=== PATIENT | male | born 1940 | race Caucasian/White ===

== ENCOUNTER 2019-10-26 01:20 | Emergency (ER) | payer OTHER, SELFPAY ==
--- NOTE | ~2019-10-26 | XR_ITS ---
EXAMINATION: XR knee LT min 4V DATE: 10/26/2019 02:14 INDICATION: Left knee pain. Fall. TECHNIQUE: 4 views of left knee were obtained. COMPARISON: None. FINDINGS: Bone alignment is normal. No fracture. There is moderate osteoarthritis of medial compartme nt and mild osteoarthritis of lateral and patellofemoral compartments. There is a moderate-sized knee joint effusion. IMPRESSION: 1. Moderate left knee osteoarthritis. 2. Moderate-sized left knee joint effusion. Reviewed, dictated and finalized at location A. 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
--- NOTE | ~2019-10-26 | XR_ITS ---
EXAMINATION: XR knee RT min 4V DATE: 10/26/2019 02:14 INDICATION: Right knee pain. Fall. TECHNIQUE: 4 views of right knee were obtained. COMPARISON: None. FINDINGS: Bone alignment is normal. No fracture. There is moderate osteoarthritis of medial and felix lofemoral compartments and mild osteoarthritis of lateral compartment. There is a moderate-sized knee joint effusion. There are surgical clips posteromedial to the knee. IMPRESSION: 1. Moderate right knee osteoarthritis. 2. Moderate-sized right knee joint effusion. Reviewed, dictated and finalized at location A. [facility]
[2019-10-26 01:21] VITALS: BP 157/41; PULSE 66; RESP 16; TEMP 36.9; O2SAT 95
--- NOTE | 2019-10-26 01:27 | ED.FALL ---
HPI - Fall General Chief Complaint: Fall Stated Complaint: fall Time Seen by Provider: 10/26/19 01:21 Source: patient and RN notes reviewed Mode of arrival: EMS Limitations: no limitations History of Present Illness HPI Narrative: A 78 y/o male presents to the ED via EMS after having a ground level fall yesterday morning. He states that he was walking when he tripped over a step, causing him to lose his balance, and fall onto his knees on a concrete floor. He reports DELLA knee pain that is aggravated when he walks. He notes that he has taken Excedrin but denies it alleviating his pain. He also denies any HI, LOC, RITTER, neck pain, back pain, ABD pain, or CP. MD complaint: fall Onset (ago): day(s) (yesterday morning) Fall from: standing Fall witnessed: no Place fall occurred: home Loss of consciousness: none Symptoms prior to fall: none Context: tripped/slipped Location of injury - extremities: Bilateral: knee Associated symptoms (after fall): other (DELLA knee pain) Related Data Home Medications Medication Instructions Recorded Confirmed albuterol sulfate 90 mcg/actuation 1 puff INHALATION Q4H PRN 09/11/19 09/26/19 aerosol inhaler alprostadil 125 mcg intra-urethral 125 mcg INTRA-URET Q30-60M PRN 09/11/19 09/26/19 suppository aspirin 81 mg tablet,delayed 81 mg PO DAILY 09/11/19 09/26/19 release carvedilol 12.5 mg tablet 12.5 mg PO Q12H 09/11/19 09/26/19 enalapril maleate 20 mg tablet 20 mg PO BID 09/11/19 09/26/19 gabapentin 300 mg capsule 300 mg PO TID 09/11/19 09/26/19 hydroxyzine HCl 25 mg tablet 25 mg PO .at bedtime PRN tablet 09/11/19 09/26/19 insulin glargine 100 unit/mL 20 unit SUB-Q BID ml 09/11/19 09/26/19 subcutaneous solution nifedipine 90 mg tablet,extended 90 mg PO DAILY 09/11/19 09/26/19 release pramipexole 0.125 mg tablet 0.125 mg PO DAILY tablet 09/11/19 09/26/19 sevelamer carbonate 800 mg tablet 2,400 mg PO TID tablet 09/11/19 09/26/19 silver sulfadiazine 1 % topical 1 applic TOPICAL BID 09/11/19 09/26/19 cream simvastatin 40 mg tablet 40 mg PO DAILY 09/11/19 09/26/19 terazosin 10 mg capsule 10 mg PO DAILY 09/11/19 09/26/19 furosemide 80 mg tablet 80 mg PO BID 10/05/19 Allergies Allergy/AdvReac Type Severity Reaction Status Date / Time cortisone Allergy Unknown Unknown Verified 10/26/19 01:27 zolpidem Allergy Unknown Unknown Verified 10/26/19 01:27 cortisone Allergy Unknown Unknown Uncoded 10/26/19 01:27 zolpidem Allergy Unknown Unknown Uncoded 10/26/19 01:27 Review of Systems Review of Systems: All systems reviewed & are unremarkable except as noted in HPI and below Cardiovascular: Cardiovascular: Denies chest pain Gastrointestinal: Gastrointestinal: Denies abdominal pain Musculoskeletal: Musculoskeletal: Denies back pain, Reports arthralgias (DELLA knee) and Denies neck pain Neurologic: Denies headache(s) and Denies other (HI or LOC) PMFSH Past Medical History Medical History Arthritis CAD (coronary artery disease) Cataract Constipation Depression Dialysis patient Fracture GERD (gastroesophageal reflux disease) Gout HLD (hyperlipidemia) HTN (hypertension) IDDM (insulin dependent diabetes mellitus) Myocardial infarct Peripheral neuropathy Pneumonia Renal disease Shingles Skin cancer Sleep apnea TIA (transient ischemic attack) Trigger thumb of left hand Weight loss Surgical History Surgical History Cataract extraction status, unspecified eye H/O cardiac catheterization H/O lateral meniscus repair of left knee History of tonsillectomy Hx of CABG S/P right rotator cuff repair Status post surgical removal of malignant neoplasm of skin Family History Family History Sibling Patient's brother is in good health Mother Family history of malignant neoplasm Patient's mother is Social History Social History (Reviewed
[2019-10-26] MEDS: ACETAMINOPHEN 500 MG TABLET 1000 MG PO (02:00)
[2019-10-26 02:16] VITALS: BP 146/78; PULSE 62; RESP 18; O2SAT 98
[2019-10-26 02:30] VITALS: TEMP 36.9
--- NOTE | 2019-10-26 03:04 | PC.NURSE ---
Patient was able to ambulate without difficulty during ambulation assessment.
[2019-10-26 03:21] VITALS: BP 135/56; PULSE 65; RESP 18; TEMP 36.3; O2SAT 100
== END 2019-10-26 03:24 | disposition home or self-care (01) ==
PROVIDERS: Emergency Provider Emergency Medicine; PCP Internal Medicine
DX: S80.02XA Contusion of left knee, initial encounter (principal); S80.01XA Contusion of right knee, initial encounter; S80.212A Abrasion, left knee, initial encounter; N18.6 End stage renal disease; I12.0 Hypertensive chronic kidney disease with stage 5 chronic kidney disease or end stage renal disease; E11.22 Type 2 diabetes mellitus with diabetic chronic kidney disease; Z99.2 Dependence on renal dialysis; I25.10 Atherosclerotic heart disease of native coronary artery without angina pectoris; K21.9 Gastro-esophageal reflux disease without esophagitis; M10.9 Gout, unspecified; I25.2 Old myocardial infarction; E78.5 Hyperlipidemia, unspecified; E11.42 Type 2 diabetes mellitus with diabetic polyneuropathy; M19.90 Unspecified osteoarthritis, unspecified site; Z95.1 Presence of aortocoronary bypass graft; Z86.73 Personal history of transient ischemic attack (TIA), and cerebral infarction without residual deficits; Z79.82 Long term (current) use of aspirin; Z79.4 Long term (current) use of insulin; Z98.49 Cataract extraction status, unspecified eye; Z85.828 Personal history of other malignant neoplasm of skin; W18.09XA Striking against other object with subsequent fall, initial encounter
CPT/HCPCS: 73564; 99284; A9270

== ENCOUNTER 2019-12-02 08:57 | Emergency (ER) | payer OTHER, SELFPAY ==
--- NOTE | ~2019-12-02 | CT_ITS ---
EXAMINATION: CT brain wo con DATE: 12/02/2019 09:45 INDICATION: Recent head injury. Weakness. TECHNIQUE: Computed tomography (CT) of the head was performed without intravenous contrast. The dose- length product was 605.33 mGy-cm. The mA was adjusted according to patient size. Iterative reconstruc tion technique was employed. COMPARISON: CT dated 07/12/2015 FINDINGS: Mild atrophy. There are scattered mild periventricular and subcortical white matter changes , most likely related to small vessel ischemic disease (microangiopathy). Prominent perivascular spac e right basal ganglia. No acute intracranial hemorrhage, infarction, mass or mass effect. There is in tracranial atherosclerosis. Basilar cisterns are patent. Mild mucosal thickening of the ethmoid sinus es. Mastoids are pneumatized. No depressed skull fractures. IMPRESSION: 1. No acute intracranial abnormality. 2: Chronic age-related findings. Reviewed, dictated and finalized at location A.
--- NOTE | ~2019-12-02 | XR_ITS ---
XR chest 2V 12/02/2019 09:33 Indication: Weakness and dyspnea Procedure: AP upright view of the chest Comparison: Comparison to multiple prior studies sequentially, with oldest reviewed study dated 11/24. Findings: Status post median sternotomy for CABG. Cardiomegaly. Bibasilar airspace disease is present . Small pleural effusions. No edema or pneumothorax. The lungs are hyperinflated which is consistent with, but not diagnostic of chronic obstructive pulmonary disease. Impression: 1: Bibasilar airspace disease which may represent pneumonia and/or atelectasis. 2: Cardiomegaly. 3: Small pleural effusions. Reviewed, dictated and finalized at location A. Impression: 1: Bibasilar airspace disease which may represent pneumonia and/or atelectasis. 2: Cardiomegaly. 3: Small pleural effusions.
[2019-12-02 09:00] VITALS: BP 114/63; PULSE 61; RESP 12; TEMP 36.4; O2SAT 99
--- NOTE | 2019-12-02 09:03 | ED.WEAKNESS ---
HPI - Weakness General Chief complaint: Weakness Stated complaint: weakness Time Seen by Provider: 12/02/19 09:02 Source: patient Mode of arrival: EMS Limitations: no limitations History of Present Illness HPI Narrative: A 79 y/o male presents to the ED, via EMS, with c/o generalized weakness. Pt states that 1.5 weeks ago he fell and landed on his knees and hit his head. He notes that he was seen at [facility], but did not tell staff that he hit his head. At the ED visit he had bilateral knee X-Rays that did not show any abnormalities. The patient cannot remember if he was admitted to [facility] or not. He adds that since the fall he has had trouble with his balance and a poor appetite. Pt uses a walker to ambulate. Today at 0600 he had extreme trouble getting out of bed and used his walker to get into his recliner. The patient then could not get out of his chair and called EMS. He states that the generalized weakness and trouble ambulating worsened today. Pt reports occasional SOB, rhinorrhea, sinus drainage, and occasional diarrhea, but denies CP, cough, fever, chills, sweats, sore throat, N/V, congestion, and constipation. He has a PMHx of HTN, [place], and renal disease. Pt receives dialysis every MWF and last had dialysis on 11/30/19. He notes that he does not urinate every day. Dr. Sam is his PCP and Dr. Mills is his care management coordinator. Complaint: generalized weakness Onset (ago): week(s) (1.5) Duration: constant and progressively worsening (today) Location: generalized Associated symptoms: loss of appetite, shortness of breath (occasional) and other (trouble balancing, rhinorrhea, sinus drainage, occasional diarrhea) Related Data Home Medications Medication Instructions Recorded Confirmed albuterol sulfate 90 mcg/actuation 1 puff INHALATION Q4H PRN 09/11/19 09/26/19 aerosol inhaler alprostadil 125 mcg intra-urethral 125 mcg INTRA-URET Q30-60M PRN 09/11/19 09/26/19 suppository aspirin 81 mg tablet,delayed 81 mg PO DAILY 09/11/19 09/26/19 release carvedilol 12.5 mg tablet 12.5 mg PO Q12H 09/11/19 09/26/19 enalapril maleate 20 mg tablet 20 mg PO BID 09/11/19 09/26/19 gabapentin 300 mg capsule 300 mg PO TID 09/11/19 09/26/19 hydroxyzine HCl 25 mg tablet 25 mg PO .at bedtime tablet 09/11/19 09/26/19 nifedipine 90 mg tablet,extended 90 mg PO DAILY 09/11/19 09/26/19 release pramipexole 0.125 mg tablet 0.125 mg PO DAILY tablet 09/11/19 09/26/19 sevelamer carbonate 800 mg tablet 2,400 mg PO TID tablet 09/11/19 09/26/19 silver sulfadiazine 1 % topical 1 applic TOPICAL BID 09/11/19 09/26/19 cream terazosin 10 mg capsule 10 mg PO DAILY 09/11/19 09/26/19 furosemide 80 mg tablet 80 mg PO BID 10/05/19 insulin glargine 100 unit/mL 10 unit SUB-Q .AT HS ml 11/08/19 11/08/19 subcutaneous solution amitriptyline 12/02/19 apixaban [Eliquis] mg 12/02/19 atorvastatin 12/02/19 Allergies Allergy/AdvReac Type Severity Reaction Status Date / Time cortisone Allergy Unknown Unknown Verified 10/26/19 01:27 zolpidem Allergy Unknown Unknown Verified 10/26/19 01:27 cortisone Allergy Unknown Unknown Uncoded 10/26/19 01:27 zolpidem Allergy Unknown Unknown Uncoded 10/26/19 01:27 Review of Systems Review of Systems: All systems reviewed & are unremarkable except as noted in HPI and below Constitutional: Constitutional: Denies chills, Denies fever(s), Reports poor appetite, Reports weakness (generalized) and Denies other (sweats) ENT: Denies nasal congestion, Reports nasal discharge, Denies sore throat and Reports other (sinus drainage) Cardiovascular: Cardiovascular: Denies chest pain Respiratory: Respiratory: Denies cough and Reports dyspnea (occasional) Gastrointestinal: Gastrointestinal: Denies constipation, Reports diarrhea (occasional), Denies nausea and Denies vomiting Neurologic: Reports other (trouble balancing) PMFSH Past Medical History Medical History Arthritis CAD (coronary
--- NOTE | 2019-12-02 09:04 | ECG_ITS ---
Measurements Intervals [place] Rate: 59 P: 24 [place]: 218 QRS: -26 QRSD: 99 T: 197 QT: 450 QTc: 449 Interpretive Statements SINUS BRADYCARDIA BORDERLINE AV CONDUCTION DELAY DELAYED PRECORDIAL R/S TRANSITION LEFT VENTRICULAR HYPERTROPHY AND ST-T CHANGE ST-T WAVE ABNORMALITY IN LATERAL LEADS- CONSIDER ISCHEMIA BASELINE ARTIFACT- I, II, AVR, AVL, AVF, V1-V6 ABNORMAL ECG Electronically Signed On 12-02-2019 9:18:12 CDT by Guille Louis D.O.
[2019-12-02 09:08] LABS: Glucose Point of Care 232 (65-105)
[2019-12-02 09:16] VITALS: PULSE 61
[2019-12-02 09:48] VITALS: BP 107/49; PULSE 55
[2019-12-02 09:52] VITALS: BP 107/55; BP 117/48; PULSE 54; PULSE 58
[2019-12-02 10:02] LABS: Basophils Percent Auto 0.5 % (0.2-1.2); Eosinophils Absolute Auto 0.6 K/mm3 (0-0.3); Hematocrit 24.7 % (42.0-52.0); Hemoglobin 7.7 g/dL (14.0-18.0); Immature Granulocyte Absolute 0.03 K/mm3 (0.00-0.031); Immature Granulocyte Percent A 0.4 % (0-0.5); Lymphocytes Absolute Auto 1.13 K/mm3 (0.9-3.2); Lymphocytes Percent Auto 14.4 % (18.3-44.2); Mean Corpuscular HGB Conc 31.2 g/dl (32-36); Mean Corpuscular Volume 96.1 fl (80-100); Mean Platelet Volume 9.9 fl (7.4-10.4); Monocytes Absolute Auto 0.8 K/mm3 (0.1-0.6); Monocytes Percent Auto 10.1 % (2.6-8.5); Neutrophils Absolute Auto 5.3 K/mm3 (1.3-6.7); Neutrophils Percent Auto 67.6 % (45.5-73.1); Platelet Count Result 249 k/mm3 (150-375); Red Blood Count 2.57 M/mm3 (4.6-6.20); Red Cell Distribution Width 15.1 % (11.5-14.5); White Blood Count 7.9 K/mm3 (4.5-10.0)
[2019-12-02 10:12] LABS: Alanine Aminotransferase 8 U/L (4-50); Albumin Level 3.2 g/dL (3.5-5.1); Alkaline Phosphatase 93 U/L (38-126); Aspartate Amino Transferase 12 U/L (17-59); Bilirubin,Total < 0.1 mg/dL (0.2-1.3); Blood Urea Nitrogen 37 mg/dL (9-20); Calcium 8.2 mg/dL (8.4-10.2); Carbon Dioxide 29 mmol/L (22-30); Chloride 97 mmol/L (98-107); Estimated Glomerular Filt Rate 9; Glucose 255 mg/dL (75-110); Magnesium 2.1 mg/dL (1.6-2.3); Phosphorus 5.1 mg/dL (2.5-4.5); Potassium 3.8 mmol/L (3.4-5.0); Sodium 134 mmol/L (137-145)
[2019-12-02 12:35] VITALS: BP 116/64; PULSE 60; RESP 12; O2SAT 99
--- NOTE | 2019-12-02 12:40 | PCCCNOTE ---
Spoke with pt c/o needs. Pt feels that he is weak and having trouble getting around in the house and is unsteady or falls. Discussed the options of residential vs SNF vs home health. Pt does not want jail or SNF at this time but is open to home health. Lorenza spoke with Torri at [facility] and refferal faxed to them. Pt informed of this and told that home health should contact him in a day or so once insurance approval obtained. Phone # given to pt in case he is not contacted in 1 - 2 days.
== END 2019-12-02 12:40 | disposition home or self-care (01) ==
LOC: ANHED 09:23
PROVIDERS: Emergency Provider Emergency Medicine; PCP Internal Medicine
DX: R53.1 Weakness (principal); N18.6 End stage renal disease; E11.22 Type 2 diabetes mellitus with diabetic chronic kidney disease; I12.0 Hypertensive chronic kidney disease with stage 5 chronic kidney disease or end stage renal disease; Z99.2 Dependence on renal dialysis; Z87.891 Personal history of nicotine dependence; Z79.4 Long term (current) use of insulin; I25.10 Atherosclerotic heart disease of native coronary artery without angina pectoris; K21.9 Gastro-esophageal reflux disease without esophagitis; E78.5 Hyperlipidemia, unspecified; E11.42 Type 2 diabetes mellitus with diabetic polyneuropathy; I25.2 Old myocardial infarction; Z85.828 Personal history of other malignant neoplasm of skin; G47.30 Sleep apnea, unspecified; Z79.01 Long term (current) use of anticoagulants; Z79.82 Long term (current) use of aspirin; Z98.49 Cataract extraction status, unspecified eye; Z95.1 Presence of aortocoronary bypass graft; F32.9 Major depressive disorder, single episode, unspecified; R00.1 Bradycardia, unspecified; I51.7 Cardiomegaly; R94.31 Abnormal electrocardiogram [ECG] [EKG]; R91.8 Other nonspecific abnormal finding of lung field
CPT/HCPCS: 36415; 70450; 71046; 80053; 82948; 83735; 84100; 84443; 85025; 93005; 99284

== ENCOUNTER 2019-12-12 04:51 | Emergency (ER) | payer OTHER, SELFPAY ==
--- NOTE | ~2019-12-12 | CT_ITS ---
EXAMINATION: CT abdomen pelvis wo con DATE: 12/12/2019 05:23 INDICATION: Right flank pain. Low back pain. Fall 3 days ago. TECHNIQUE: Computed tomography (CT) of the abdomen and pelvis was performed without intravenous contr ast. Automated exposure control and iterative reconstruction technique were employed. The dose-length product was 618.69 mGy-cm. COMPARISON: CT abdomen and pelvis 10/09/2016, 10/16/15 FINDINGS: The visualized portions of the lung bases demonstrate smooth septal thickening, consistent with mild pulmonary edema. There are small pleural effusions. There is mild atelectasis bilaterally. Cardiomegaly is noted. There are coronary artery calcifications. No pericardial effusion. The liver i s normal. There are gallstones in the gallbladder, which is normal in size. The spleen is normal. The re are calcifications within pancreas, consistent with chronic pancreatitis. The adrenal glands and r ight kidney are normal. There is an 8 mm cyst in left kidney. The prostate is mildly enlarged. There is diverticulosis of the colon without evidence of diverticulitis. The appendix is normal. There are no dilated loops of bowel. There is a 2.7 x 1.9 cm mass with small calcifications in the body of the pancreas. Again seen is a mildly enlarged gastrohepatic lymph node, likely reactive. There is no free intraperitoneal fluid. There is a nondisplaced transverse fracture of S4 of the sacrum. There is mod erate lumbar spondylosis. There is a nondisplaced fracture of right 11th rib. IMPRESSION: 1. Acute fractures of the sacrum and right 11th rib. 2. Mild pulmonary edema with small pleural effusions. 3. Cardiomegaly. 4. 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 Reviewed, dictated and finalized at location A. IMPRESSION: 1. Acute fractures of the sacrum and right 11th rib. 2. Mild pulmonary edema with small pleural effusions. 3. Cardiomegaly. 4. 2.7 x 1.9 cm mass with small calcifications in the body of the pancreas susp icious for neuroendocrine carcinoma versus chronic pancreatitis, stable from 10/16/15.
[2019-12-12 04:55] VITALS: BP 126/71; PULSE 65; RESP 20; TEMP 36.2; O2SAT 100
[2019-12-12] MEDS: ACETAMINOPHEN 500 MG TABLET 1000 MG PO (05:05)
--- NOTE | 2019-12-12 05:06 | ED.BACK ---
HPI - Back Pain/Injury General Chief Complaint: Back Pain/Injury Stated Complaint: back pain, fall Time Seen by Provider: 12/12/19 04:54 Source: RN notes reviewed History of Present Illness HPI Narrative: Patient presents emergency department from home for fall. Patient states he fell 3 days ago. He states he missed the bottom stair and fell back onto his back. Patient states since that time is had pain in his right lower back and into his right side. Patient states he is able to get up and ambulate. He denies any other trauma or injury from the fall. Denies striking his head or loss of consciousness. He denies any numbness or tingling in the extremities, bowel or bladder incontinence, fever, abdominal pain nausea vomiting or any other symptoms. States he is taking no pain medication today Related Data Home Medications Medication Instructions Recorded Confirmed albuterol sulfate 90 mcg/actuation 1 puff INHALATION Q4H PRN 09/11/19 09/26/19 aerosol inhaler alprostadil 125 mcg intra-urethral 125 mcg INTRA-URET Q30-60M PRN 09/11/19 09/26/19 suppository aspirin 81 mg tablet,delayed 81 mg PO DAILY 09/11/19 09/26/19 release carvedilol 12.5 mg tablet 12.5 mg PO Q12H 09/11/19 09/26/19 enalapril maleate 20 mg tablet 20 mg PO BID 09/11/19 09/26/19 gabapentin 300 mg capsule 300 mg PO TID 09/11/19 09/26/19 hydroxyzine HCl 25 mg tablet 25 mg PO .at bedtime tablet 09/11/19 09/26/19 nifedipine 90 mg tablet,extended 90 mg PO DAILY 09/11/19 09/26/19 release pramipexole 0.125 mg tablet 0.125 mg PO DAILY tablet 09/11/19 09/26/19 sevelamer carbonate 800 mg tablet 2,400 mg PO TID tablet 09/11/19 09/26/19 silver sulfadiazine 1 % topical 1 applic TOPICAL BID 09/11/19 09/26/19 cream terazosin 10 mg capsule 10 mg PO DAILY 09/11/19 09/26/19 furosemide 80 mg tablet 80 mg PO BID 10/05/19 insulin glargine 100 unit/mL 10 unit SUB-Q .AT HS ml 11/08/19 11/08/19 subcutaneous solution amitriptyline 12/02/19 apixaban [Eliquis] mg 12/02/19 atorvastatin 12/02/19 Allergies Allergy/AdvReac Type Severity Reaction Status Date / Time cortisone Allergy Unknown Unknown Verified 12/12/19 05:01 zolpidem Allergy Unknown Unknown Verified 12/12/19 05:01 cortisone Allergy Unknown Unknown Uncoded 10/26/19 01:27 zolpidem Allergy Unknown Unknown Uncoded 10/26/19 01:27 Review of Systems Review of Systems: Narrative: Gen.: Denies fevers or chills Eyes: Denies eye pain or visual change ENT: Denies facial injury Respiratory: Denies shortness of breath or cough CV: Denies chest pain GI: Denies abdominal pain nausea, emesis or diarrhea reports history of chronic renal failure dialysis Musculoskeletal: See HPI Neuro: Denies numbness, tingling, weakness or focal weakness Skin: Denies rash Except as documented, all other systems reviewed and negative PMFSH Past Medical History Medical History Arthritis CAD (coronary artery disease) Cataract Constipation Depression Dialysis patient Fracture GERD (gastroesophageal reflux disease) Gout HLD (hyperlipidemia) HTN (hypertension) IDDM (insulin dependent diabetes mellitus) Myocardial infarct Peripheral neuropathy Pneumonia Renal disease Shingles Skin cancer Sleep apnea TIA (transient ischemic attack) Trigger thumb of left hand Weight loss Social History Social History Smoking status: Former smoker Alcohol intake: never Gender identity (if verbalized by the patient): Male Exam Narrative: Exam Narrative: APPEARANCE: No acute distress, nontoxic, resting in bed EYES: EOMI HEENT: Normocephalic, atraumatic, OMM RESPIRATORY: No respiratory distress Clear to auscultation bilaterally with no rhonchi wheezing or rales. CARDIOVASCULAR: Regular rate and rhythm without murmurs rubs or gallops. ABDOMINAL: Soft, nontender, nondistended, no rebound or guarding MUSCULOSKELETAl: Moves
--- NOTE | 2019-12-12 05:55 | PC.NURSE ---
This nurse contacted Lui at [facility], the dialysis center the patient goes to. This nurse spoke with Malvin and informed her that the patient is here and he wanted to call to inform them he may be late for his appointment today.
--- NOTE | 2019-12-12 06:00 | PC.NURSE ---
Upon patient request, this nurse contacted Malvin at [facility] and informed her that the patient stated he will be on time for his appt.
[2019-12-12 06:17] VITALS: BP 112/54; PULSE 58; RESP 20; O2SAT 97
== END 2019-12-12 06:21 | disposition home or self-care (01) ==
PROVIDERS: Emergency Provider Emergency Medicine; PCP Internal Medicine
DX: S22.31XA Fracture of one rib, right side, initial encounter for closed fracture (principal); S32.19XA Other fracture of sacrum, initial encounter for closed fracture; E11.22 Type 2 diabetes mellitus with diabetic chronic kidney disease; I12.0 Hypertensive chronic kidney disease with stage 5 chronic kidney disease or end stage renal disease; N18.6 End stage renal disease; Z99.2 Dependence on renal dialysis; I51.7 Cardiomegaly; R93.5 Abnormal findings on diagnostic imaging of other abdominal regions, including retroperitoneum; J81.1 Chronic pulmonary edema; Z79.01 Long term (current) use of anticoagulants; M19.90 Unspecified osteoarthritis, unspecified site; I25.10 Atherosclerotic heart disease of native coronary artery without angina pectoris; Z79.82 Long term (current) use of aspirin; Z79.4 Long term (current) use of insulin; Z86.73 Personal history of transient ischemic attack (TIA), and cerebral infarction without residual deficits; Z85.828 Personal history of other malignant neoplasm of skin; G47.30 Sleep apnea, unspecified; I25.2 Old myocardial infarction; E11.42 Type 2 diabetes mellitus with diabetic polyneuropathy; M10.9 Gout, unspecified; Z87.891 Personal history of nicotine dependence; W10.9XXA Fall (on) (from) unspecified stairs and steps, initial encounter
CPT/HCPCS: 74176; 99284; A9270

== ENCOUNTER 2019-12-22 21:33 | Emergency (ER) | payer OTHER, SELFPAY ==
--- NOTE | ~2019-12-22 | XR_ITS ---
EXAMINATION: XR toe 1st LT min 2V DATE: 12/22/2019 22:11 INDICATION: Left great toe injury. TECHNIQUE: 3 views of left great toe were obtained. COMPARISON: Left foot radiographs 10/14/2015 FINDINGS: Bone alignment is normal. No fracture. There is mild osteoarthritis of first metatarsophala ngeal joint. IMPRESSION: 1. No fracture. Reviewed, dictated and finalized at location A. IMPRESSION: 1. No fracture.
[2019-12-22 21:34] VITALS: BP 144/56; PULSE 80; RESP 20; TEMP 37; O2SAT 100
--- NOTE | 2019-12-22 21:48 | ED.WOUNDLAC ---
HPI - Wound/Laceration General Chief Complaint: Wound/Laceration Stated Complaint: L 1st toe injury Time Seen by Provider: 12/22/19 21:37 Source: RN notes reviewed History of Present Illness HPI narrative: Patient presents emergency department from home for left great toe nail avulsion. Patient states 1 hour prior to arrival he struck his toe on a chest and ripped the first toenail completely off. States he had profuse bleeding from the toe at that time as well prompted him to come to the emergency department. He states he is on Eliquis. Denies any other trauma or injury. Denies any numbness or tingling Related Data Home Medications Medication Instructions Recorded Confirmed albuterol sulfate 90 mcg/actuation 1 puff INHALATION Q4H PRN 09/11/19 09/26/19 aerosol inhaler alprostadil 125 mcg intra-urethral 125 mcg INTRA-URET Q30-60M PRN 09/11/19 09/26/19 suppository aspirin 81 mg tablet,delayed 81 mg PO DAILY 09/11/19 09/26/19 release carvedilol 12.5 mg tablet 12.5 mg PO Q12H 09/11/19 09/26/19 enalapril maleate 20 mg tablet 20 mg PO BID 09/11/19 09/26/19 gabapentin 300 mg capsule 300 mg PO TID 09/11/19 09/26/19 hydroxyzine HCl 25 mg tablet 25 mg PO .at bedtime tablet 09/11/19 09/26/19 nifedipine 90 mg tablet,extended 90 mg PO DAILY 09/11/19 09/26/19 release pramipexole 0.125 mg tablet 0.125 mg PO DAILY tablet 09/11/19 09/26/19 sevelamer carbonate 800 mg tablet 2,400 mg PO TID tablet 09/11/19 09/26/19 silver sulfadiazine 1 % topical 1 applic TOPICAL BID 09/11/19 09/26/19 cream terazosin 10 mg capsule 10 mg PO DAILY 09/11/19 09/26/19 furosemide 80 mg tablet 80 mg PO BID 10/05/19 insulin glargine 100 unit/mL 10 unit SUB-Q .AT HS ml 11/08/19 11/08/19 subcutaneous solution amitriptyline 12/02/19 apixaban [Eliquis] mg 12/02/19 atorvastatin 12/02/19 Allergies Allergy/AdvReac Type Severity Reaction Status Date / Time cortisone Allergy Unknown Unknown Verified 12/22/19 21:37 zolpidem Allergy Unknown Unknown Verified 12/22/19 21:37 Review of Systems Review of Systems: Narrative: Gen.: Denies fevers or chills Musculoskeletal: See HPI Neuro: Denies numbness, tingling, weakness Skin: Denies rash [facility]o: [facility] Social History Social History Smoking status: Former smoker Alcohol intake: never Gender identity (if verbalized by the patient): Male Exam Narrative: Exam Narrative: APPEARANCE: No acute distress, nontoxic, resting in bed Eyes: EOMI HEENT: Normocephalic, atraumatic, RESPIRATORY: No respiratory distress MUSCULOSKELETAl: The great toe of the left foot has the toenail completely avulsed, minimal bleeding at this time, mild swelling and tenderness palpation remainder the foot is nontender to palpation dorsalis pedis pulse 2+, neurovascular intact NEURO: Awake and alert. Following commands, speech normal, no focal deficits SKIN:: Warm, dry. Normal Color no rash or lesions Course Course Emergency Course: Patient with some mild persistent venous oozing from the mid nailbed. Silver nitrate was used with improvement of bleeding nonstick dressing placed and patient placed in postop shoe Discussed with patient results of workup and diagnosis. Discussed need for follow-up with primary care, proper use of medication, and reasons to return to the emergency department. Patient understands and agrees to current treatment plan Vital Signs Vital signs: Vital Signs Temperature 98.6 F 12/22/19 21:34 Pulse Rate 80 12/22/19 21:34 Respiratory Rate 12/22/19 21:34 Blood Pressure 144/56 H 12/22/19 21:34 Pulse Oximetry 100 12/22/19 21:34 Temperature 98.6 F 12/22/19 21:34 Pulse Rate 80 12/22/19 21:34 Respiratory Rate 20 12/22/19 21:34 Blood Pressure 144/56 H 12/22/19 21:34 Pulse Oximetry 100 12/22/19 21:34 MDM - Wound/Laceration Imaging Data Attestation: I personally reviewed and interpreted this imag
[2019-12-22 23:31] VITALS: BP 136/56; PULSE 62; RESP 20; O2SAT 97
== END 2019-12-22 23:32 | disposition home or self-care (01) ==
PROVIDERS: Emergency Provider Emergency Medicine; PCP Internal Medicine
DX: S91.202A Unspecified open wound of left great toe with damage to nail, initial encounter (principal); Z87.891 Personal history of nicotine dependence; W22.03XA Walked into furniture, initial encounter
CPT/HCPCS: 12001; 73660; 99283

== ENCOUNTER 2019-12-27 15:12 | Inpatient (IN) | payer OTHER, SELFPAY ==
[2019-12-27] VITALS (23 sets, daily range): BP systolic 113–144; BP diastolic 43–74; PULSE 54–69; RESP 12–20; TEMP 36–36.8; O2SAT 90–98; BMI 24.8
--- NOTE | ~2019-12-27 | XR_ITS ---
EXAMINATION: XR knee RT 3V EXAM DATE: 12/29/2019 11:38 INDICATION: Initial encounter following injury, with pain of the right knee. TECHNIQUE: Three projections of the right knee. Comparison is made to prior examination from 0. FINDINGS: No evidence osteochondral defect or joint body in the right knee joint. There is moderate right patellofemoral compartment predominant primary osteoarthritis. There are no acute fractures or dislocations identified. There is no subcutaneous gas. There is moderate-sized joint effusion. T here are no radiopaque foreign bodies. There are arterial calcifications, arteriosclerosis. There is no significant interval change. IMPRESSION: 1. XR knee RT 3V exam without acute osseous findings. 2. Moderate right knee joint effusion. 3. Moderate osteoarthritis. Reviewed, dictated and finalized at location A.
--- NOTE | ~2019-12-27 | XR_ITS ---
EXAMINATION: XR elbow LT 2V DATE: 12/29/2019 11:49 INDICATION: Left elbow pain post fall TECHNIQUE: Anteroposterior and lateral views of the left elbow were obtained. COMPARISON: None. FINDINGS: Alignment is normal. No fracture. Joint spaces are normal. Mild osteoarthritis at the left elbow with tiny marginal osteophytes and mild nonuniform joint space narrowing. No left elbow joint effusion. S oft tissue swelling posterior to the elbow and distal upper arm. IMPRESSION: 1. No left elbow joint effusion or acute osseous abnormality. Reviewed, dictated and finalized at location A.
--- NOTE | 2019-12-27 15:25 | ECG_ITS ---
Measurements Intervals [place] Rate: 58 P: 67 [place]: 211 QRS: -20 QRSD: 107 T: 160 QT: 475 QTc: 470 Interpretive Statements SINUS BRADYCARDIA WITH FIRST DEGREE AV BLOCK LEFT VENTRICULAR HYPERTROPHY AND ST-T CHANGE ST-T WAVE ABNORMALITY IN LATERAL LEADS- CONSIDER ISCHEMIA ABNORMAL ECG Electronically Signed On 12-27-2019 16:24:07 CDT by Guille Louis D.O.
--- NOTE | 2019-12-27 15:26 | ED.RECABL ---
HPI - Recheck/Abnormal Lab/Rx General Chief Complaint: Weakness Stated Complaint: LOW H&H Time Seen by Provider: 12/27/19 15:13 Source: patient Mode of arrival: EMS Limitations: no limitations History of Present Illness HPI narrative: Patient is a 79-year-old male presents to the emergency department complaint of low hemoglobin. Patient states he was contacted by to be dialysis and advised to present to the emergency department due to critically low hemoglobin. Patient had his last dialysis treatment yesterday morning and it sounds as though he had labs collected at that time. Patient complains of generalized weakness and dizziness. He is denying any shortness of breath or chest pain at this time. He does report noticing black stools for approximately 1 week. Patient states he thinks he takes a blood thinner, but is uncertain what blood thinner he takes. His medication list on the EMR from previous visit shows Eliquis. BETH complaint: abnormal lab Context: called for abnormal lab result Related Data Home Medications Medication Instructions Recorded Confirmed aspirin 81 mg tablet,delayed 81 mg PO DAILY 09/11/19 12/27/19 release carvedilol 12.5 mg tablet 6.25 mg PO Q12H 09/11/19 12/27/19 enalapril maleate 20 mg tablet 20 mg PO BID 09/11/19 12/27/19 gabapentin 300 mg capsule 300 mg PO BID 09/11/19 12/27/19 nifedipine 90 mg tablet,extended 90 mg PO DAILY 09/11/19 12/27/19 release pramipexole 0.125 mg tablet 0.25 mg PO DAILY tablet 09/11/19 12/27/19 sevelamer carbonate 800 mg tablet 2,400 mg PO TID tablet 09/11/19 12/27/19 terazosin 10 mg capsule 10 mg PO DAILY 09/11/19 12/27/19 furosemide 80 mg tablet 160 mg PO DAILY 10/05/19 12/27/19 insulin glargine 100 unit/mL 20 unit SUB-Q Q12H ml 11/08/19 12/27/19 subcutaneous solution amitriptyline 25 mg PO HS 12/02/19 12/27/19 apixaban [Eliquis] 5 mg PO DAILY 12/02/19 12/27/19 atorvastatin 20 mg PO HS 12/02/19 12/27/19 Allergies Allergy/AdvReac Type Severity Reaction Status Date / Time cortisone Allergy Unknown Unknown Verified 12/27/19 19:54 Review of Systems Review of Systems: All systems reviewed & are unremarkable except as noted in HPI and below Constitutional: Constitutional: Reports weakness Cardiovascular: Cardiovascular: Denies chest pain Respiratory: Respiratory: Denies dyspnea Gastrointestinal: Gastrointestinal: Denies abdominal pain and Reports melena [facility] Past Medical History Medical History Anemia of chronic disease Coronary artery disease Depression with anxiety Diabetic peripheral neuropathy Diastolic congestive heart failure Most recent echocardiogram showed an ejection fraction of 55 to 60%, diastolic grade 3 dysfunction, mild left atrial enlargement, mild mitral valve regurgitation, moderate pulmonary hypertension, and mild pulmonic regurgitation. Diverticulosis With history of diverticulitis. Dyslipidemia End-stage renal disease on hemodialysis Patient of Dr. Veliz in [place]. He receives dialysis on Tuesday, Tuesday, and Tuesday at [facility]. Essential hypertension Gastroesophageal reflux disease Gout Insulin dependent type 2 diabetes mellitus Myocardial infarct Obstructive sleep apnea Intolerant to CPAP. Osteoarthritis Shingles Skin cancer Transient ischemic attack Surgical History Surgical History History of arthroscopy of left knee With meniscus repair. History of cardiac catheterization History of cataract extraction History of repair of right rotator cuff History of three vessel coronary artery bypass 2010. History of tonsillectomy Status post surgical removal of malignant neoplasm of skin Excised from back and upper extremity. Family History Family History Sibling Patient's brother is in good health Mother Family his
[2019-12-27 15:43] LABS: Basophils Percent Auto 0.4 % (0.2-1.2); Eosinophils Absolute Auto 0.1 K/mm3 (0-0.3); Eosinophils Percent Auto 0.7 % (0-4.4); Immature Granulocyte Absolute 0.06 K/mm3 (0.00-0.031); Immature Granulocyte Percent A 0.6 % (0-0.5); Lymphocytes Absolute Auto 0.83 K/mm3 (0.9-3.2); Lymphocytes Percent Auto 7.8 % (18.3-44.2); Mean Corpuscular HGB Conc 30.8 g/dl (32-36); Mean Corpuscular Hemoglobin 31.4 pg (26-34); Mean Platelet Volume 10.5 fl (7.4-10.4); Neutrophils Absolute Auto 8.7 K/mm3 (1.3-6.7); Neutrophils Percent Auto 81.5 % (45.5-73.1); Platelet Count Result 276 k/mm3 (150-375); Red Blood Count 1.53 M/mm3 (4.6-6.20); Red Cell Distribution Width 15.2 % (11.5-14.5); White Blood Count 10.7 K/mm3 (4.5-10.0)
--- NOTE | 2019-12-27 15:46 | PC.NURSE ---
[facility] called and they are going to send over pts chart. they state his hemoglobin was 4.6
[2019-12-27 15:53] LABS: Hematocrit 15.6 % (42.0-52.0); Hemoglobin 4.8 g/dL (14.0-18.0)
[2019-12-27 15:55] LABS: INR 1.9; Prothrombin Time 20.9 Seconds (11.1-14.7)
[2019-12-27 15:56] LABS: Partial Thromboplastin Time 38.8 SECONDS (22.3-36.8)
[2019-12-27 15:58] LABS: Alanine Aminotransferase 10 U/L (4-50); Albumin Level 3.1 g/dL (3.5-5.1); Alkaline Phosphatase 99 U/L (38-126); Aspartate Amino Transferase 12 U/L (17-59); Bilirubin,Total 0.2 mg/dL (0.2-1.3); Blood Urea Nitrogen 35 mg/dL (9-20); Carbon Dioxide 29 mmol/L (22-30); Chloride 93 mmol/L (98-107); Estimated CRCL calculation 14 ml/min; Estimated Glomerular Filt Rate 12; Glucose 438 mg/dL (75-110); Sodium 131 mmol/L (137-145)
[2019-12-27 16:05] LABS: Hypochromasia 2+ (NORMAL); Platelet Estimate Adequate (Adequate)
[2019-12-27 16:06] LABS: Anisocytosis 1+ (NORMAL)
[2019-12-27] MEDS: TUBING, BLOOD PLUM PUMP TUBING 1 EACH XX (17:31)
[2019-12-27] MEDS: SODIUM CHLORIDE 0.9% IV 250 ML 30 ML IV CONT (17:31)
--- NOTE | 2019-12-27 18:30 | PM.IMHP ---
H&P: HPI History of Present Illness Chief complaint: Low hemoglobin. Narrative: Modesto Gonzalez is a 79-year-old male with multiple medical problems including end-stage renal disease on hemodialysis, coronary artery disease, diastolic congestive heart failure, hypertension, and insulin-dependent diabetes who presented to the emergency department earlier this afternoon via EMS with stage chief complaint of ?low hemoglobin.? He received a phone call from his dialysis center, advising him to come to the emergency department due to a critically low hemoglobin level noted on blood drawn yesterday with dialysis. With further questioning, he does report black stools for the past 1 week. He is on Eliquis, but he is uncertain as to why he takes this, even when prompted. Additionally, he feels weak and was lightheaded this morning. He has never had dark stools like this in the past. He denies taking iron supplementation and Pepto-Bismol. He does suffer from GERD on rare occasions, for which she will take Rolaids or Tums, but that has not given him many problems recently. He does admit to increased stress recently, as he was hospitalized at [place] approximately 4 weeks ago after a fall and since that time he has had to give up his dog as he is unable to take care of him adequately. He denies NSAID use. No abdominal or epigastric discomfort. Denies nausea and vomiting. No chest pain or shortness of breath. Last colonoscopy was approximately 5 years ago at [facility]. One benign colon polyp was removed at that time. Review of Systems Review of Systems: Narrative: Twelve systems were reviewed with pertinent positives and negatives as per HPI. No fever, chills, or sweats. No dysphagia. No chest pain, palpitations, or significant shortness of breath. Weight has remained stable. Denies epistaxis, hematemesis, hematuria, and hematochezia. Except as documented, all other systems were reviewed and are negative. [facility] Past Medical History Medical History Anemia of chronic disease Coronary artery disease Depression with anxiety Diabetic peripheral neuropathy Diastolic congestive heart failure Most recent echocardiogram showed an ejection fraction of 55 to 60%, diastolic grade 3 dysfunction, mild left atrial enlargement, mild mitral valve regurgitation, moderate pulmonary hypertension, and mild pulmonic regurgitation. Diverticulosis With history of diverticulitis. Dyslipidemia End-stage renal disease on hemodialysis Patient of Dr. Veliz in [place]. He receives dialysis on Tuesday, Tuesday, and Tuesday at [facility] in [place]. Essential hypertension Gastroesophageal reflux disease Gout Insulin dependent type 2 diabetes mellitus Myocardial infarct Obstructive sleep apnea Intolerant to CPAP. Osteoarthritis Shingles Skin cancer Transient ischemic attack Surgical History Surgical History History of arthroscopy of left knee With meniscus repair. History of cardiac catheterization History of cataract extraction History of repair of right rotator cuff History of three vessel coronary artery bypass 2010. History of tonsillectomy Status post surgical removal of malignant neoplasm of skin Excised from back and upper extremity. Family History Family History Sibling Patient's brother is in good health Mother Family history of malignant neoplasm Patient's mother is Diabetes mellitus Father Congestive heart failure Social History Social History (Updated 12/27/19 @ 22:03 by Lorri Kahn PA-C) Social History: Surrogate decision maker: Son, Jovani Gonzalez. Code status: DNR. Smoking packs per day: 1 Smoking cigarettes per day: 20.0 Years smoked: 5 Smoking pack-years: 5.00 Smoking status: Former smoker Tobacco type: c
--- NOTE | 2019-12-27 18:46 | PM.CNNEP ---
Assessment and Plan Assessment and plan (1) End stage renal disease: Code(s): N18.6 - End stage renal disease Status: Chronic (2) Profound anemia: Code(s): D64.9 - Anemia, unspecified Status: Acute (3) HTN (hypertension): Code(s): I10 - Essential (primary) hypertension Status: Acute (4) GERD (gastroesophageal reflux disease): Code(s): K21.9 - Gastro-esophageal reflux disease without esophagitis Status: Acute (5) Insulin dependent type 2 diabetes mellitus: Code(s): E11.9 - Type 2 diabetes mellitus without complications; Z79.4 - terminal carman (current) use of insulin Status: Acute Assessment and Plan: . Additional Plan Modesto has end-stage renal disease and profound anemia as noted by his admission labs. The concern of course is that he has a significant GI bleed issue which may be further complicated by the fact that he is on anticoagulation (Eliquis). He is already receiving packed red blood cell transfusions in effort to get his H/H to a more reasonable range. Gastroenterology will be consulted for further evaluation of his anemia and I suspect he probably will undergo an EGD and possibly colonoscopy depending on the trend of his H&H and symptoms. He has already been started been started on proton pump inhibitors given the concern for an acute GI bleed in general. He has no critical electrolyte abnormalities and his volume status appears to be relatively stable somewhat tentative plan is to resume dialysis tomorrow and continue dialysis on his outpatient Tuesday, Tuesday, Tuesday schedule in effort to maintain stability in his CKD parameters. I will continue follow his hemoglobin, calcium, phosphorus, volume status...etc and make further adjustments to his medications and dialysis prescription to ensure stability in these parameters. I will continue to follow the patient with you while he remains hospitalized. Thank you for allowing me to participate in the care this patient. History of Present Illness Reason for Consult Consult date: 12/28/19 Reason for consult: end stage renal disease Chief Complaint Chief complaint: Low hemoglobin. History of Present Illness Narrative: The patient is a 79-year-old male with an extensive past medical history as outlined below who presented to [facility] ER with anemia. Apparently, the patient has been noted to have black tarry stools for the last week. Furthermore, he has been having symptoms of generalized weakness, fatigue, and lightheadedness this seem to be somewhat worse this morning. It was noted by the dialysis nurses at his outpatient dialysis clinic that he appeared to be somewhat more paler than usual and this, coupled with the above history, prompted them to check a hemoglobin hematocrit to ensure that this was not the cause of his symptoms. He received a call from his dialysis center today informing him that his hemoglobin was quite low and that he should go to the emergency room for further evaluation which she did. Upon further questioning, he denies any history of hematochezia or melena. He denies taking iron supplements but he is on anticoagulation in the form of Eliquis please not entirely sure why he is on this medication. He does have issues and problems with gastroesophageal reflux disease and does take Tums and or Rolaids when needed. He also notes recent stressors as he was recently hospitalized about a month ago after a fall and he had to give up his dog as he was unable to take proper care of him. No other reported symptoms with regard to chest pain, shortness of breath, nausea, vomiting or diarrhea. Workup and evaluation in the emergency room demonstrated the patient to be hemodynamically stable but routine blood test demonstrated his hemoglobin to be 4.8 with a hematocrit of 15.6. He was subsequently typed and crossed and started on a packed red blood cell transfusion with subsequent a
[2019-12-27] MEDS: GABAPENTIN 300 MG CAPSULE PO (23:29)
[2019-12-27] MEDS: carvediloL 6.25 MG TABLET PO (23:29)
[2019-12-27] MEDS: ATORVASTATIN 20 MG TABLET PO (23:29)
[2019-12-27] MEDS: ENALAPRIL MALEATE 10 MG TABLET 20 MG PO (23:29)
[2019-12-27] MEDS: PANTOPRAZOLE SODIUM IV 40 MG VIAL IV PUSH (23:30)
[2019-12-27] MEDS: AMITRIPTYLINE HCL 25 MG TABLET PO (23:30)
[2019-12-27] MEDS: INSULIN GLARGINE (*BKC) 100 UNITS/ML 20 UNITS SUB-Q (23:31)
[2019-12-28] VITALS (42 sets, daily range): BP systolic 131–182; BP diastolic 47–82; PULSE 53–86; RESP 14–20; TEMP 35.9–37; O2SAT 95–100; BMI 25.4
[2019-12-28 00:34] LABS: Hematocrit 20.2 % (42.0-52.0); Hemoglobin 6.4 g/dL (14.0-18.0)
[2019-12-28 07:59] LABS: Hematocrit 24.9 % (42.0-52.0); Hemoglobin 8.2 g/dL (14.0-18.0); Mean Corpuscular HGB Conc 32.9 g/dl (32-36); Mean Corpuscular Hemoglobin 30.9 pg (26-34); Mean Platelet Volume 10.2 fl (7.4-10.4); Platelet Count Result 265 k/mm3 (150-375); Red Blood Count 2.65 M/mm3 (4.6-6.20); Red Cell Distribution Width 17.2 % (11.5-14.5); White Blood Count 8.7 K/mm3 (4.5-10.0)
[2019-12-28 08:04] LABS: Blood Urea Nitrogen 39 mg/dL (9-20); Calcium 7.9 mg/dL (8.4-10.2); Carbon Dioxide 28 mmol/L (22-30); Chloride 96 mmol/L (98-107); Estimated CRCL calculation 12 ml/min; Estimated Glomerular Filt Rate 10; Glucose 276 mg/dL (75-110); Magnesium 2.1 mg/dL (1.6-2.3); Phosphorus 5.2 mg/dL (2.5-4.5); Potassium 4.1 mmol/L (3.4-5.0); Sodium 131 mmol/L (137-145)
[2019-12-28 08:27] LABS: Glucose Point of Care 262 (65-105)
[2019-12-28 08:35] LABS: Hepatitis B Surface Antigen Negative (Negative)
[2019-12-28 09:06] LABS: Hepatitis B Surface Antigen Negative (Negative)
[2019-12-28 09:11] LABS: HAV RESULT Negative (Negative); Hepatitis B Core IgM Result Negative (Negative)
[2019-12-28 09:41] LABS: Hepatitis B Surface Anti Res Positive; Hepatitis C Virus Antibody Negative (Negative)
--- NOTE | 2019-12-28 09:54 | WPDGICN ---
Assessment and Plan Assessment and plan (1) Profound anemia: Code(s): D64.9 - Anemia, unspecified Status: Acute Assessment and Plan: Patient with profound anemia hemoglobin 4.8 on presentation. With history of black melenic stools. Quite suspicious for GI blood loss. Plan is to hold Eliquis. Transfuse to a stable hemoglobin. An EGD will be performed to evaluate more thoroughly. Patient will be maintained on Protonix for possible peptic ulcer disease in the antrum. (2) End-stage renal disease on hemodialysis: Code(s): N18.6 - End stage renal disease; Z99.2 - Dependence on renal dialysis Status: Acute (3) Anticoagulated: Code(s): Z79.01 - FDC (current) use of anticoagulants Status: Acute Assessment and Plan: Patient reports Eliquis anticoagulation. The reason for anticoagulation is unclear. This should be held at the present time given GI bleeding. In only restarted if significant reason for anticoagulation is present. 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 Plan is for follow-up colonoscopy when he is no longer in anticoagulation. Possibly Tuesday. GI Consult Note Consult date/time: 12/28/19 09:54 HPI: Modesto Gonzalez is a 79 year old male seen in evaluation at the request of the hospitalist service. I am asked to see patient because of profound anemia and black melenic stools. Patient has multiple medical problems including end-stage renal disease on hemodialysis chronically. Congestive heart failure, hypertension, diabetes mellitus. Patient presented to the hospital yesterday after dialysis unit called him and told him he had profound anemia. Patient reports in retrospect to stools have been black for several days. He has felt weak and lightheaded particularly yesterday. He denies any abdominal pain. In the past he has states occasional heartburn. He reports 5 years ago had a colonoscopy at the [facility] and was told he had 1 colon polyp removed. He takes Eliquis anticoagulation but he is uncertain why. Patient has reported several falls over recent weeks period of uncertain whether he became lightheaded no syncope is identified. Review of Systems Review of Systems: All systems reviewed & are unremarkable except as noted in HPI and below PMFSH Past Medical History Medical History Anemia of chronic disease Coronary artery disease Depression with anxiety Diabetic peripheral neuropathy Diastolic congestive heart failure Most recent echocardiogram showed an ejection fraction of 55 to 60%, diastolic grade 3 dysfunction, mild left atrial enlargement, mild mitral valve regurgitation, moderate pulmonary hypertension, and mild pulmonic regurgitation. Diverticulosis With history of diverticulitis. Dyslipidemia End-stage renal disease on hemodialysis Patient of Dr. Veliz in [place]. He receives dialysis on Tuesday, Tuesday, and Tuesday at [facility] in [place]. Essential hypertension Gastroesophageal reflux disease Gout Insulin dependent type 2 diabetes mellitus Myocardial infarct Obstructive sleep apnea Intolerant to CPAP. Osteoarthritis Shingles Skin cancer Transient ischemic attack Surgical History Surgical History History of arthroscopy of left knee With meniscus repair. History of cardiac catheterization History of cataract extraction History of repair of right rotator cuff History of three vessel co
--- NOTE | 2019-12-28 11:24 | PM.PNNEP ---
Progress Note: A&P Assessment and Plan (1) End stage renal disease: Code(s): N18.6 - End stage renal disease Status: Chronic Assessment and Plan: HD today and continue M/W/F outpatient dialysis schedule follow electrolytes, volume status, and clearance (2) Profound anemia: Code(s): D64.9 - Anemia, unspecified Status: Acute Assessment and Plan: related to ESRD and presumed GI blood loss Gastroenterology following with plan for EGD tomorrow with possible colonoscopy follow H/H PRBC transfusion PRN (3) HTN (hypertension): Code(s): I10 - Essential (primary) hypertension Status: Acute Assessment and Plan: reasonable control at this time follow trend of hemodynamics (4) GERD (gastroesophageal reflux disease): Code(s): K21.9 - Gastro-esophageal reflux disease without esophagitis Status: Acute Assessment and Plan: on PPI (5) Insulin dependent type 2 diabetes mellitus: Code(s): E11.9 - Type 2 diabetes mellitus without complications; Z79.4 - shelter (current) use of insulin Status: Acute Assessment and Plan: follow accuchecks on Lantus and SSI Will continue to follow. Subjective Date/time seen: 12/28/19 11:24 Tolerating dialysis at the time of my visit (seen on HD at ~ 11:00AM); no apparent distress noted; tolerated PRBC transfusions overnight; no other events overnight or earlier this AM. Exam Narrative: Exam Narrative: General: WD/WN male in NAD Heart: normal S1 and S2; no rub Lungs: clear to auscultation Abdomen: soft, nontender, nondistended, positive bowel sounds Extremities: no cyanosis or clubbing; no edema Skin: warm and dry Objective Data Vital Signs Vital Signs: Vital Signs Temp Pulse Resp BP Pulse Ox 12/28/19 11:15 64 171/75 H 12/28/19 11:00 62 166/73 H 12/28/19 10:45 59 L 169/71 H 12/28/19 10:30 60 164/72 H 12/28/19 10:15 61 161/73 H 12/28/19 10:00 61 170/70 H 12/28/19 09:45 60 167/79 H 12/28/19 09:32 68 172/81 H 12/28/19 09:20 36.2 C L 63 16 163/78 H 12/28/19 08:00 36.2 C L 62 16 155/48 H 97 12/28/19 06:55 36.3 C L 62 18 154/49 H 97 12/28/19 06:00 55 L 12/28/19 05:36 36.3 C L 62 18 149/49 H 97 12/28/19 05:33 36.8 C 55 L 18 147/53 H 97 12/28/19 04:36 36.3 C L 58 L 18 147/48 H 97 12/28/19 04:19 36.2 C L 64 20 153/51 H 97 12/28/19 04:00 62 20 138/47 L 97 12/28/19 03:58 36.8 C 60 16 138/47 L 95 12/28/19 02:58 36.7 C 53 L 20 131/48 L 97 12/28/19 01:58 35.9 C L 58 L 18 143/48 H 98 12/28/19 01:48 60 12/28/19 01:43 36.1 C L 64 18 144/47 H 100 12/28/19 01:38 36.1 C L 64 18 144/47 H 100 12/28/19 00:00 60 18 97 12/27/19 23:39 36.0 C L 60 18 144/74 H 97 12/27/19 23:29 58 L 12/27/19 22:40 36.4 C 69 18 138/45 L 97 12/27/19 22:00 56 L 12/27/19 21:40 36.4 C 59 L 18 138/48 L 96 12/27/19 20:42 58 L 18 97 12/27/19 20:40 36.1 C L 59 L 20 142/49 H 97 12/27/19 20:25 36.0 C L 58 L 18 135/44 L 97 12/27/19 20:00 36.3 C L 62 18 133/48 L 98 12/27/19 19:02 36.1 C L 65 16 143/46 H 94 12/27/19 18:33 36.6 C 62 16 142/45 H 98 12/27/19 18:11 56 L 12 127/47 L 98 12/27/19 17:48 54 L 14 127/47 L 95 12/27/19 17:33 36.4 C 57 L 20 124/44 L 97 12/27/19 17:17 36.4 C 55 L 20 123/46 L 95 12/27/19 16:07 66 122/43 L 12/27/19 16:06 55 L 113/51 L 12/27/19 16:05 55 L 119/50 L 12/27/19 16:00 56 L 18 93 12/27/19 15:58 56 L 20 128/50 L 95 12/27/19 15:56 56 L 12/27/19 15:50 36.8 C 56 L 20 122/53 L 94 12/27/19 15:31 58 L 16 128/50 L 90 Intake/Output Intake/Output: Intake & Output 12/25/19 12/26/19 12/27/19 12/28/19 23:59 23:59 23:59 23:59 Intake Total 659 750 Balance 659 750 Meds/Results Medications: Active Medications Generic N
[2019-12-28] MEDS: EPOETIN ALFA 10,000 UNITS/ML VIAL 20000 UNITS IV PUSH (11:37)
[2019-12-28 12:06] LABS: Hematocrit 25.6 % (42.0-52.0); Hemoglobin 8.3 g/dL (14.0-18.0)
[2019-12-28 13:54] LABS: Glucose Point of Care 116 (65-105)
[2019-12-28] MEDS: carvediloL 6.25 MG TABLET PO ×2 (14:35→20:40)
[2019-12-28] MEDS: FUROSEMIDE 80 MG TABLET 160 MG PO (14:37)
[2019-12-28] MEDS: TERAZOSIN HCL 5 MG CAPSULE 10 MG PO (14:37)
[2019-12-28] MEDS: PRAMIPEXOLE 0.125 MG TABLET 0.25 MG PO (14:37)
[2019-12-28] MEDS: PANTOPRAZOLE SODIUM IV 40 MG VIAL IV PUSH ×2 (14:37→21:30)
[2019-12-28] MEDS: NIFEdipine 30 MG TAB.ER.24 90 MG PO (14:37)
[2019-12-28] MEDS: ENALAPRIL MALEATE 10 MG TABLET 20 MG PO ×2 (14:37→20:40)
[2019-12-28] MEDS: GABAPENTIN 300 MG CAPSULE PO ×2 (14:37→20:41)
[2019-12-28] MEDS: SEVELAMER CARBONATE 800 MG TABLET 2400 MG PO (14:38)
--- NOTE | 2019-12-28 16:32 | WPDANESEPP ---
Anes - Eval Pre Procedure Procedure: Operation Date: 12/29/19 07:30 Proposed Procedures p Esophagogastroduodenoscopy - Tony Balderas MD Date/Time: 12/28/19 16:32 Pre Op Diagnosis: Low hemoglobin. Patient Data Age: 79 Gender: M Height: 1.85 m Weight: 87.5 kg Last Vital Signs Temp 36.2 C L 12/28/19 13:54 Pulse 69 12/28/19 14:35 Resp 14 12/28/19 13:54 BP 175/58 H 12/28/19 13:54 Pulse Ox 98 12/28/19 13:54 Allergies Allergy/AdvReac Type Severity Reaction Status Date / Time cortisone Allergy Unknown Unknown Verified 12/27/19 19:54 Home Medications Medication Instructions Recorded Confirmed Type aspirin 81 mg tablet,delayed 81 mg PO DAILY 09/11/19 12/27/19 History release carvedilol 12.5 mg tablet 6.25 mg PO Q12H 09/11/19 12/27/19 History enalapril maleate 20 mg tablet 20 mg PO BID 09/11/19 12/27/19 History gabapentin 300 mg capsule 300 mg PO BID 09/11/19 12/27/19 History nifedipine 90 mg tablet,extended 90 mg PO DAILY 09/11/19 12/27/19 History release pramipexole 0.125 mg tablet 0.25 mg PO DAILY tablet 09/11/19 12/27/19 History sevelamer carbonate 800 mg tablet 2,400 mg PO TID tablet 09/11/19 12/27/19 History terazosin 10 mg capsule 10 mg PO DAILY 09/11/19 12/27/19 History furosemide 80 mg tablet 160 mg PO DAILY 10/05/19 12/27/19 History insulin glargine 100 unit/mL 20 unit SUB-Q Q12H ml 11/08/19 12/27/19 History subcutaneous solution amitriptyline 25 mg PO HS 12/02/19 12/27/19 History apixaban [Eliquis] 5 mg PO DAILY 12/02/19 12/27/19 History atorvastatin 20 mg PO HS 12/02/19 12/27/19 History Laboratory Tests 12/27/19 12/28/19 12/28/19 15:33 00:21 07:46 WBC RBC Hgb 6.4 g/dL L* g/dL (14.0-18.0) Hct 20.2 % L* % (42.0-52.0) MCV MCH MCHC RDW Plt Count MPV Sodium Potassium Chloride Carbon Dioxide BUN Creatinine Estim Creat Clear Calc Estimated GFR Glucose POC Capillary Glucose Calcium Phosphorus Magnesium Iron TIBC % Saturation Ferritin Vitamin B12 Folate Hepatitis A IgM Ab Negative (Negative) Hep Bs Antigen Negative (Negative) Hep Bs Antibody Positive Hep B Core IgM Ab Negative (Negative) Hepatitis C Ab Screen Negative (Negative) Blood Type O Positive Antibody Screen Negative Crossmatch See Detail 12/28/19 12/28/19 12/28/19 07:46 07:46 07:46 WBC 8.7 K/mm3 K/mm3 (4.5-10.0) RBC 2.65 M/mm3 L M/mm3 (4.6-6.20) Hgb 8.2 g/dL L g/dL (14.0-18.0) Hct 24.9 % L % (42.0-52.0) MCV 94.0 fl D fl (80-100) MCH 30.9 pg pg (26-34) MCHC 32.9 g/dl g/dl (32-36) RDW 17.2 % H % (11.5-14.5) Plt Count 265 k/mm3 k/mm3 (150-375) MPV 10.2 fl fl (7.4-10.4) Sodium 131 mmol/L L mmol/L (137-145) Potassium 4.1 mmol/L mmol/L (3.4-5.0) Chloride 96 mmol/L L mmol/L (98-107) Carbon Dioxide 28 mmol/L mmol/L (22-30) BUN 39 mg/dL H mg/dL (9-20) Creatinine 5.40 mg/dL H mg/dL (0.7-1.3) Estim Creat Clear Calc 12 ml/min ml/min Estimated GFR 10 L (59 - ) Glucose 276 mg/dL H mg/dL (75-110) POC Capillary Glucose Calcium 7.9 mg/dL L mg/dL (8.4-10.2) Phosphorus 5.2 mg/dL H mg/dL (2.5-4.5) Magnesium 2.1 mg/dL mg/dL (1.6-2.3) Iron TIBC % Saturation Ferritin Vitamin B12 Folate Hepatitis A IgM Ab Hep Bs Antigen
[2019-12-28 16:40] LABS: Glucose Point of Care 197 (65-105)
--- NOTE | 2019-12-28 17:25 | PM.IMPN ---
Progress Note: A&P Assessment and Plan (1) Profound anemia: Code(s): D64.9 - Anemia, unspecified Status: Acute Assessment and Plan: Presumed GI bleed given reports of melena. He will be transfused to a stable hemoglobin. GI specialist on-call will be consulted. Patient is on Eliquis, which of course will be held. I will try to contact Dr. Sam to see why exactly the patient is on anticoagulation. 12/28/19 17:25 Patient is 79-year-old male with history end-stage renal disease he was called from dialysis center that he has a severely low hemoglobin and he was asked to come to emergency department where he was found to have hemoglobin of 4.8 patient does admit to taking NSAID for his pain and he been having black stools for last 1 week though he denies any abdominal pain nausea or vomiting hematoma emesis or hematochezia, he denies any fever or chills, patient has received 4 units of pack RBC currently his hemoglobin is 8.3, patient is seen by GI and suspect patient has peptic ulcer disease been started on IV PPI and plan is to do EGD tomorrow, patient is seen by enforcement officer and will have scheduled dialysis, patient is on Eliquis unable to provide detail why he is taking however it is on hold. (2) End-stage renal disease on hemodialysis: Code(s): N18.6 - End stage renal disease; Z99.2 - Dependence on renal dialysis Status: Acute Assessment and Plan: Dr. Bridges consulted for dialysis. 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 Initiate sliding scale insulin, Accu-Cheks, and hypoglycemic protocol. (4) Essential hypertension: Code(s): I10 - Essential (primary) hypertension Status: Acute Assessment and Plan: Blood pressures were reviewed and they are stable. Continue antihypertensives and monitor closely. Subjective Date/time seen: 12/28/19 17:25 Patient is 79-year-old male with history end-stage renal disease he was called from dialysis center that he has a severely low hemoglobin and he was asked to come to emergency department where he was found to have hemoglobin of 4.8 patient does admit to taking NSAID for his pain and he been having black stools for last 1 week though he denies any abdominal pain nausea or vomiting hematoma emesis or hematochezia, he denies any fever or chills, patient has received 4 units of pack RBC currently his hemoglobin is 8.3, patient is seen by GI and suspect patient has peptic ulcer disease been started on IV PPI and plan is to do EGD tomorrow, patient is seen by enforcement officer and will have scheduled dialysis, patient is on Eliquis unable to provide detail why he is taking however it is on hold. Review of Systems Review of Systems: All systems reviewed & are unremarkable except as noted in HPI and below Exam Narrative: Exam Narrative: Elderly frail Const: General: comfortable and no acute distress HENMT: General nose exam: Normal nares present Mouth: Yes moist mucous membranes Eyes: General: appearance normal, both eyes and all related structures Sclera: sclerae normal Neck: Neck: supple Resp: Effort & Inspection: normal respiratory effort Auscultation: clear to auscultation bilaterally Cardio: Rate: regular rate Rhythm: regular rhythm GI: Auscultation: normal bowel sounds Other: Patient is not tender in epigastric Skin: Other: Pale Neuro: Speech: normal speech Extrem: General: normal to inspection Psych: Affect: Anxious affect present Objective Data Vital Signs Vital Signs: Vital Signs - 24 hr 12/27/19 17:33 12/27/19 17:48 12/27/19 18:11 Temperature 97.6 F Pulse Rate 57 L 54 L 56 L Respiratory Rate 20 14 12 Blood Pressure 124/44 L 127/47 L 127/47 L Pulse Oximetry 97 95 98 12/27/19 18:33
[2019-12-28 17:55] LABS: Iron 75 ug/dL (49-181)
[2019-12-28 17:57] LABS: Hematocrit 26.8 % (42.0-52.0); Hemoglobin 8.6 g/dL (14.0-18.0)
[2019-12-28 18:06] LABS: Percent Iron Saturation 38 % (20-50)
[2019-12-28 19:14] LABS: Folic Acid 5.2 ng/mL (2.76->20)
[2019-12-28 20:13] LABS: Glucose Point of Care 277 (65-105)
[2019-12-28] MEDS: ATORVASTATIN 20 MG TABLET PO (20:40)
[2019-12-28] MEDS: AMITRIPTYLINE HCL 25 MG TABLET PO (20:41)
[2019-12-28] MEDS: INSULIN GLARGINE (*BKC) 100 UNITS/ML 20 UNITS SUB-Q (20:41)
[2019-12-29] VITALS (14 sets, daily range): BP systolic 124–147; BP diastolic 45–57; PULSE 53–70; RESP 16–23; TEMP 36.3–37; O2SAT 89–100
[2019-12-29 00:26] LABS: Hemoglobin 8.2 g/dL (14.0-18.0)
[2019-12-29 04:53] LABS: Hemoglobin 8.2 g/dL (14.0-18.0); Mean Corpuscular HGB Conc 31.5 g/dl (32-36); Mean Corpuscular Hemoglobin 29.6 pg (26-34); Mean Corpuscular Volume 93.9 fl (80-100); Mean Platelet Volume 9.9 fl (7.4-10.4); Platelet Count Result 282 k/mm3 (150-375); Red Blood Count 2.77 M/mm3 (4.6-6.20); Red Cell Distribution Width 16.9 % (11.5-14.5); White Blood Count 9.2 K/mm3 (4.5-10.0)
[2019-12-29 05:16] LABS: Blood Urea Nitrogen 21 mg/dL (9-20); Calcium 8.1 mg/dL (8.4-10.2); Carbon Dioxide 31 mmol/L (22-30); Chloride 98 mmol/L (98-107); Estimated CRCL calculation 19 ml/min; Estimated Glomerular Filt Rate 18; Glucose 100 mg/dL (75-110); Potassium 3.6 mmol/L (3.4-5.0); Sodium 134 mmol/L (137-145)
[2019-12-29 06:40] LABS: Glucose Point of Care 90 (65-105)
[2019-12-29] MEDS: SODIUM CHLORIDE 0.9% IV 500 ML 10 ML IV CONT (06:50)
--- NOTE | 2019-12-29 07:05 | WPDANESEPPF ---
Anes - Initial Pre Proc Eval Procedure: Operation Date: 12/29/19 07:30 Proposed Procedures p Esophagogastroduodenoscopy - Tony Balderas MD Date/Time: 12/29/19 07:05 Surgeon: Jorge A Varghese MD Pre Op Diagnosis: Low hemoglobin. Patient Data Age: 79 Gender: M Height: 6 ft 1 in Weight: 87.5 kg Last Vital Signs Temp 36.3 C L 12/29/19 06:42 Pulse 54 L 12/29/19 06:42 Resp 20 12/29/19 06:42 BP 147/46 H 12/29/19 06:42 Pulse Ox 98 12/29/19 06:42 Allergies Allergy/AdvReac Type Severity Reaction Status Date / Time cortisone Allergy Unknown Unknown Verified 12/27/19 19:54 Home Medications Medication Instructions Recorded Confirmed Type aspirin 81 mg tablet,delayed 81 mg PO DAILY 09/11/19 12/27/19 History release carvedilol 12.5 mg tablet 6.25 mg PO Q12H 09/11/19 12/27/19 History enalapril maleate 20 mg tablet 20 mg PO BID 09/11/19 12/27/19 History gabapentin 300 mg capsule 300 mg PO BID 09/11/19 12/27/19 History nifedipine 90 mg tablet,extended 90 mg PO DAILY 09/11/19 12/27/19 History release pramipexole 0.125 mg tablet 0.25 mg PO DAILY tablet 09/11/19 12/27/19 History sevelamer carbonate 800 mg tablet 2,400 mg PO TID tablet 09/11/19 12/27/19 History terazosin 10 mg capsule 10 mg PO DAILY 09/11/19 12/27/19 History furosemide 80 mg tablet 160 mg PO DAILY 10/05/19 12/27/19 History insulin glargine 100 unit/mL 20 unit SUB-Q Q12H ml 11/08/19 12/27/19 History subcutaneous solution amitriptyline 25 mg PO HS 12/02/19 12/27/19 History apixaban [Eliquis] 5 mg PO DAILY 12/02/19 12/27/19 History atorvastatin 20 mg PO HS 12/02/19 12/27/19 History Laboratory Tests 04/17/20 04/17/20 04/17/20 07:46 07:46 07:46 WBC 8.7 K/mm3 K/mm3 (4.5-10.0) RBC 2.65 M/mm3 L M/mm3 (4.6-6.20) Hgb 8.2 g/dL L g/dL (14.0-18.0) Hct 24.9 % L % (42.0-52.0) MCV 94.0 fl D fl (80-100) MCH 30.9 pg pg (26-34) MCHC 32.9 g/dl g/dl (32-36) RDW 17.2 % H % (11.5-14.5) Plt Count 265 k/mm3 k/mm3 (150-375) MPV 10.2 fl fl (7.4-10.4) Sodium 131 mmol/L L mmol/L (137-145) Potassium 4.1 mmol/L mmol/L (3.4-5.0) Chloride 96 mmol/L L mmol/L (98-107) Carbon Dioxide 28 mmol/L mmol/L (22-30) BUN 39 mg/dL H mg/dL (9-20) Creatinine 5.40 mg/dL H mg/dL (0.7-1.3) Estim Creat Clear Calc 12 ml/min ml/min Estimated GFR 10 L (59 - ) Glucose 276 mg/dL H mg/dL (75-110) POC Capillary Glucose Calcium 7.9 mg/dL L mg/dL (8.4-10.2) Phosphorus 5.2 mg/dL H mg/dL (2.5-4.5) Magnesium 2.1 mg/dL mg/dL (1.6-2.3) Iron TIBC % Saturation Ferritin Vitamin B12 Folate Hepatitis A IgM Ab Negative (Negative) Hep Bs Antigen Negative (Negative) Hep Bs Antibody Positive Hep B Core IgM Ab Negative (Negative) Hepatitis C Ab Screen Negative (Negative) 12/28/19 12/28/19 12/28/19 07:46 07:53 11:15 WBC RBC Hgb Cancelled Hct Cancelled MCV MCH MCHC RDW Plt Count MPV Sodium Potassium Chloride Carbon Dioxide BUN Creatinine Estim Creat Clear Calc Estimated GFR Glucose POC Capillary Glucose 262 mg/dl H mg/dl (65-105) Calcium Phosphorus Magnesium Iron TIBC % Saturation Ferritin Vitamin B12 Folate Hepatitis A IgM Ab Hep Bs Antigen Negative (Negative) Hep Bs Antibody Hep B Core Ig
[2019-12-29] MEDS: BENZOCAINE (*SP) 60 ML SPRAY CAN (HURRICAINE) 1 SPRAY MUCOUS MEM (07:17)
[2019-12-29 07:57] LABS: Glucose Point of Care 92 (65-105)
[2019-12-29] MEDS: NIFEdipine 30 MG TAB.ER.24 90 MG PO (09:05)
[2019-12-29] MEDS: PRAMIPEXOLE 0.125 MG TABLET 0.25 MG PO (09:05)
[2019-12-29] MEDS: GABAPENTIN 300 MG CAPSULE PO ×2 (09:06→20:48)
[2019-12-29] MEDS: TERAZOSIN HCL 5 MG CAPSULE 10 MG PO (09:06)
[2019-12-29] MEDS: SEVELAMER CARBONATE 800 MG TABLET 2400 MG PO ×3 (09:06→17:53)
[2019-12-29] MEDS: ENALAPRIL MALEATE 10 MG TABLET 20 MG PO ×2 (09:06→20:47)
[2019-12-29] MEDS: FUROSEMIDE 80 MG TABLET 160 MG PO (09:06)
[2019-12-29] MEDS: carvediloL 6.25 MG TABLET PO ×2 (09:06→20:48)
[2019-12-29] MEDS: PANTOPRAZOLE SODIUM IV 40 MG VIAL IV PUSH ×2 (09:07→20:48)
--- NOTE | 2019-12-29 09:45 | PM.IMPN ---
Progress Note: A&P Assessment and Plan (1) Profound anemia: Qualifiers: Anemia type: iron deficiency Iron deficiency anemia type: chronic blood loss Qualified Code(s): D50.0 - Iron deficiency anemia secondary to blood loss (chronic) Code(s): D64.9 - Anemia, unspecified Status: Acute Assessment and Plan: Presumed GI bleed given reports of melena. He will be transfused to a stable hemoglobin. EGD negative 12/28 Eliquis stopped due to bleeding and recent falls with injury Hx weight loss worrisome for malignancy Colonoscopy planned for 12/30 (2) End-stage renal disease on hemodialysis: Code(s): N18.6 - End stage renal disease; Z99.2 - Dependence on renal dialysis Status: Acute Assessment and Plan: Dr. Bridges consulted for dialysis. 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 Initiate sliding scale insulin, Accu-Cheks, and hypoglycemic protocol. (4) Essential hypertension: Code(s): I10 - Essential (primary) hypertension Status: Acute Assessment and Plan: Blood pressures were reviewed and they are stable. Continue antihypertensives and monitor closely. Subjective Date/time seen: 12/29/19 09:45 Interval history: Admitted with melena. Tolerated EGD 12/28. Tolerating clear liquids. Hungry. Denied pain or bleeding. Review of Systems Review of Systems: All systems reviewed & are unremarkable except as noted in HPI and below Exam Narrative: Exam Narrative: HEENT: EOMI, PERRL, slcerae nonicteric, pharyngeal mucosa pink and intact NECK: No JVD CHEST: Clear to auscultation. Normal effort. HEART: NL S1/S2, regular, no murmur ABDOMEN: BS+, soft, nontender, no mass, no bruits EXTREMITIES: No cyanosis, edema, or clubbing NEUROLOGIC: CN intact and symmetric to inspection. MUSCULOSKELETAL: Tone and strength symmetric. PSYCH: Alert. Oriented to person, place, and time. Objective Data Vital Signs Vital Signs: Vital Signs - 24 hr 12/28/19 10:00 12/28/19 10:15 12/28/19 10:30 Temperature Pulse Rate 61 61 60 Respiratory Rate Blood Pressure 170/70 H 161/73 H 164/72 H Pulse Oximetry 12/28/19 10:45 12/28/19 11:00 12/28/19 11:15 Temperature Pulse Rate 59 L 62 64 Respiratory Rate Blood Pressure 169/71 H 166/73 H 171/75 H Pulse Oximetry 12/28/19 11:30 12/28/19 11:45 12/28/19 12:00 Temperature Pulse Rate 60 63 64 Respiratory Rate Blood Pressure 172/77 H 141/81 H 174/74 H Pulse Oximetry 12/28/19 12:15 12/28/19 12:30 12/28/19 12:45 Temperature Pulse Rate 64 63 63 Respiratory Rate Blood Pressure 177/73 H 161/69 H 177/78 H Pulse Oximetry 12/28/19 13:00 12/28/19 13:10 12/28/19 13:15 Temperature 98.2 F Pulse Rate 61 68 68 Respiratory Rate 16 Blood Pressure 170/77 H 174/79 H 182/82 H Pulse Oximetry 12/28/19 13:54 12/28/19 14:00 12/28/19 14:35 Temperature 97.2 F L Pulse Rate 66 86 69 Respiratory Rate 14 Blood Pressure 175/58 H Pulse Oximetry 98 12/28/19 16:00 12/28/19 19:56 12/28/19 20:00 Temperature 97.4 F L 97.8 F Pulse Rate 60 63 62 Respiratory Rate 16 18 Blood Pressure 162/56 H 156/52 H Pulse Oximetry 98 98 12/28/19 20:40 12/28/19 22:00 12/29/19 00:00 Temperature 98.6 F Pulse Rate 59 L 59 L 55 L Respiratory Rate 18 Blood Pressure 140/50 L Pulse Oximetry 97 12/29/19 02:00 12/29/19 04:00 12/29/19 06:00 Temperature 98.1 F Pulse Rate 59 L 53 L 55 L Respiratory Rate 18 Blood Pressure 124/51 L Pulse Oximetry 98 12/29/19 06:42 12/29/19 07:28 12/29/19 07:38 Temperature 97.3 F L Pulse Rate 54 L 53 L 55 L Respiratory Rate 20 23 H 20 Blood Pressure 147/46 H 136/51 L 135/52 L Pulse Oximetry 98 96 96 12/29/19 07
--- NOTE | 2019-12-29 10:39 | PC.NURSE ---
This patient, Modesto Gonzalez, was received from [ imu] on 12/29/19 at 1039. Personal belongings list checked and signed. Patient/family oriented to unit policies and routines
--- NOTE | 2019-12-29 10:39 | PC.NURSE ---
This patient, Modesto Gonzaelz, was transferred to [ ] on 12/29/19 at 1039. Personal belongings sent with patient. Belongings list checked and signed with receiving RN. Report given to NATASHA Guevara. Appropriate documentation sent with patient.
--- NOTE | 2019-12-29 11:00 | PM.PNNEP ---
Progress Note: A&P Assessment and Plan (1) End stage renal disease: Code(s): N18.6 - End stage renal disease Status: Chronic Assessment and Plan: HD yesterday and continue M/W/ outpatient dialysis schedule follow electrolytes, volume status, and clearance (2) Profound anemia: Qualifiers: Anemia type: iron deficiency Iron deficiency anemia type: chronic blood loss Qualified Code(s): D50.0 - Iron deficiency anemia secondary to blood loss (chronic) Code(s): D64.9 - Anemia, unspecified Status: Acute Assessment and Plan: related to ESRD and presumed GI blood loss Gastroenterology following EGD today - results noted; plan for colonoscopy on Tuesday follow H/H PRBC transfusion PRN (3) HTN (hypertension): Code(s): I10 - Essential (primary) hypertension Status: Acute Assessment and Plan: reasonable control at this time follow trend of hemodynamics (4) GERD (gastroesophageal reflux disease): Code(s): K21.9 - Gastro-esophageal reflux disease without esophagitis Status: Acute Assessment and Plan: on PPI (5) Insulin dependent type 2 diabetes mellitus: Code(s): E11.9 - Type 2 diabetes mellitus without complications; 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 Exam Narrative: Exam Narrative: General: WD/WN male in NAD Heart: normal S1 and S2; no rub Lungs: clear to auscultation Abdomen: soft, nontender, nondistended, positive bowel sounds Extremities: no cyanosis or clubbing; no edema Skin: warm and intacat Objective Data Vital Signs Vital Signs: Vital Signs - 24 hr 12/29/19 20:48 12/29/19 22:00 12/30/19 06:00 Temperature 36.6 C 36.3 C L Pulse Rate 70 55 L 50 L Respiratory Rate 16 16 Blood Pressure 130/52 L 132/43 L Pulse Oximetry 96 96 Intake/Output Intake/Output: Intake & Output 12/27/19 12/28/19 12/29/1920 23:59 23:59 23:59 23:59 Intake Total 659 1050 1800 540 Output Total 3000 300 200 Balance 659 -1950 1500 340 Meds/Results Medications: Active Medications Generic Name Dose Route Start Last Admin Trade Name Freq PRN Reason Stop Dose Admin Acetaminophen 1,000 mg 12/29/19 15:57 12/29/19 16:08 Tylenol Tablet PO 1,000 mg Q6H PRN Administration Mild Pain (1-3) or Fever Amitriptyline HCl 25 mg 12/27/19 22:35 12/29/19 20:48 Elavil PO 25 mg HS DIOGENES Administration Atorvastatin Calcium 20 mg 12/27/19 22:35 12/29/19 20:47 Lipitor PO 20 mg HS DIOGENES Administration Carvedilol 6.25 mg 12/27/19 22:35 12/30/19 10:04 Coreg PO 6.25 mg Q12HR DIOGENES Administration Dextrose 12.5 gm 12/27/19 22:10 12/30/19 06:53 Dextrose 50% Syringe IV PUSH 12.5 gm PRN PRN Administration Hypoglycemia Protocol Enalapril Maleate 20 mg 12/27/19 22:40 12/30/19 10:03 Vasotec PO 20 mg Q12HR DIOGENES Administration Furosemide 160 mg 12/28/19 09:00 12/30/19 10:01 Lasix Tablet PO 160 mg DAILY DIOGENES Administration Gabapentin 300 mg 12/27/19 22:40 12/30/19 10:05 Neurontin PO 300 mg Q12HR DIOGENES Administration Glucagon 1 mg 12/27/19 22:10 Glucagon For Inj IM PRN PRN Hypoglycemia Protocol Glucose 15 gm 12/27/19 22:10 Glutose 15 PO PRN PRN Hypoglycemia Protocol Dextrose 1,000 mls @ 100 mls/hr 12/27/19 22:10 Dextrose 5% 1,000 Ml IVPB PRN PRN Hypoglycemia Protocol Albumin Human 50 mls @ 999 mls/hr 12/28/19 02:04 Albutein IVPB 01/27/20 02:05 Q10M PRN HYPOTENSION Insulin Aspart 3 - 6 units 04
[2019-12-29] MEDS: INSULIN ASPART (*BKC) 100 UNITS/ML SUB-Q (12:38)
[2019-12-29 13:05] LABS: Glucose Point of Care 254 (65-105)
[2019-12-29] MEDS: ACETAMINOPHEN 500 MG TABLET 1000 MG PO (16:08)
[2019-12-29 18:21] LABS: Glucose Point of Care 167 (65-105)
[2019-12-29] MEDS: ATORVASTATIN 20 MG TABLET PO (20:47)
[2019-12-29] MEDS: AMITRIPTYLINE HCL 25 MG TABLET PO (20:48)
[2019-12-29] MEDS: INSULIN GLARGINE (*BKC) 100 UNITS/ML 20 UNITS SUB-Q (20:48)
[2019-12-29 22:59] LABS: Glucose Point of Care 354 (65-105)
[2019-12-30 06:00] VITALS: BP 132/43; PULSE 50; RESP 16; TEMP 36.3; O2SAT 96
[2019-12-30 06:17] LABS: Hematocrit 24.6 % (42.0-52.0); Hemoglobin 7.8 g/dL (14.0-18.0); Mean Corpuscular HGB Conc 31.7 g/dl (32-36); Mean Corpuscular Hemoglobin 30.2 pg (26-34); Mean Corpuscular Volume 95.3 fl (80-100); Mean Platelet Volume 10.3 fl (7.4-10.4); Platelet Count Result 289 k/mm3 (150-375); Red Blood Count 2.58 M/mm3 (4.6-6.20); Red Cell Distribution Width 16.2 % (11.5-14.5); White Blood Count 7.5 K/mm3 (4.5-10.0)
[2019-12-30 06:35] LABS: Blood Urea Nitrogen 32 mg/dL (9-20); Calcium 7.8 mg/dL (8.4-10.2); Carbon Dioxide 27 mmol/L (22-30); Chloride 98 mmol/L (98-107); Estimated CRCL calculation 14 ml/min; Estimated Glomerular Filt Rate 12; Glucose 41 mg/dL (75-110); Potassium 4.1 mmol/L (3.4-5.0); Sodium 129 mmol/L (137-145)
[2019-12-30] MEDS: DEXTROSE 50% 25 GM/50 ML SYRINGE IV PUSH (06:53)
[2019-12-30 07:41] LABS: Glucose Point of Care 146 (65-105)
[2019-12-30 07:41] LABS: Glucose Point of Care 45 (65-105)
[2019-12-30 08:00] VITALS: PULSE 50; RESP 16; O2SAT 96
--- NOTE | 2019-12-30 08:41 | WPDGIPROGNO ---
Progress Note: A&P Additional Plan Patient alert and comfortable this morning. No obvious GI blood loss at this time. He denies abdominal pain. Physical exam reveals patient to be alert. Comfortable at rest. HEENT exam reveals him to be anicteric. Lungs are clear. Heart without murmur. Abdomen is soft and nontender. Labs reveal WBC 7.5, hemoglobin 7.8, hematocrit 24.6, MCV 95. Impression 1. Melena. With profound anemia. Presumed to be a blood loss anemia. No significant additional bleeding at this time. Eliquis on hold. EGD yesterday was unremarkable. Plan is for colonoscopy in the a.m.. Preparation today. 2. End-stage renal disease. Patient on dialysis. Likely has baseline anemia. 3. Acute on chronic anemia. Improved after transfusion. Endoscopy to exclude GI blood loss colonoscopy tomorrow. Subjective Date/time seen: 12/30/19 08:41 Objective Data Vital Signs Vital Signs: Vital Signs - 24 hr 12/29/19 09:06 12/29/19 12:06 12/29/19 14:00 Temperature 36.8 C 36.9 C Pulse Rate 56 L 58 L 60 Respiratory Rate 16 16 Blood Pressure 144/57 H 138/47 L Pulse Oximetry 97 99 12/29/19 20:48 12/29/19 22:00 12/30/19 06:00 Temperature 36.6 C 36.3 C L Pulse Rate 70 55 L 50 L Respiratory Rate 16 16 Blood Pressure 130/52 L 132/43 L Pulse Oximetry 96 96 Intake/Output Intake/Output: Intake & Output 12/27/19 12/28/19 12/29/19 12/30/19 23:59 23:59 23:59 23:59 Intake Total 659 1050 1800 300 Output Total 3000 300 200 Balance 659 -1950 1500 100 Meds/Results Medications: Active Medications Generic Name Dose Route Start Last Admin Trade Name Freq PRN Reason Stop Dose Admin Acetaminophen 1,000 mg 12/29/19 15:57 12/29/19 16:08 Tylenol Tablet PO 1,000 mg Q6H PRN Administration Mild Pain (1-3) or Fever Amitriptyline HCl 25 mg 12/27/19 22:35 12/29/19 20:48 Elavil PO 25 mg HS DIOGENES Administration Atorvastatin Calcium 20 mg 12/27/19 22:35 12/29/19 20:47 Lipitor PO 20 mg HS DIOGENES Administration Carvedilol 6.25 mg 12/27/19 22:35 12/29/19 20:48 Coreg PO 6.25 mg Q12HR DIOGENES Administration Dextrose 12.5 gm 12/27/19 22:10 12/30/19 06:53 Dextrose 50% Syringe IV PUSH 12.5 gm PRN PRN Administration Hypoglycemia Protocol Enalapril Maleate 20 mg 12/27/19 22:40 12/29/19 20:47 Vasotec PO 20 mg Q12HR DIOGENES Administration Furosemide 160 mg 12/28/19 09:00 12/29/19 09:06 Lasix Tablet PO 160 mg DAILY DIOGENES Administration Gabapentin 300 mg 12/27/19 22:40 12/29/19 20:48 Neurontin PO 300 mg Q12HR DIOGENES Administration Glucagon 1 mg 12/27/19 22:10 Glucagon For Inj IM PRN PRN Hypoglycemia Protocol Glucose 15 gm 12/27/19 22:10 Glutose 15 PO PRN PRN Hypoglycemia Protocol Dextrose 1,000 mls @ 100 mls/hr 12/27/19 22:10 Dextrose 5% 1,000 Ml IVPB PRN PRN Hypoglycemia Protocol Albumin Human 50 mls @ 999 mls/hr 12/28/19 02:04 Albutein IVPB 01/27/20 02:05 Q10M PRN HYPOTENSION Insulin Aspart 3 - 6 units 12/28/19 08:00 12/29/19 17:51 Novolog SUB-Q Not Given TIDWM DIOGENES Protocol Insulin Glargine 20 units 12/30/19 21:00 Lantus SUB-Q HS DIOGENES Nifedipine 90 mg 12/28/19 09:00 12/29/19 09:05 Procardia Xl PO 01/27/20 09:01 90 mg DAILY DIOGENES Administration Pantoprazole Sodium 40 mg 12/27/19 21:00 12/29/19 20:48 Protonix Iv IV PUSH 40 mg Q12HR DIOGENES Administration Pramipexole Dihydrochloride 0.25 mg 12/28/19 09:00 12/29/19 09:05 Mirapex PO 0.25 mg DAILY DIOGENES Administration Sevelamer Carbonate 2,400 mg 12/28/19 08:00 12/29/19 17:53 Renvela PO 2,400 mg TIDWM DIOGENES Administration Terazosin HCl 10 mg 12/28/19 09:00 12/29/19 09:06 Hytrin PO 01/27/20 09:01 10 mg DAILY DIOGENES Administration Radiology Results: ITS Impressions Knee X-Ray 12/29/19 11:48 IMPRESSION: 1. XR knee RT 3V
[2019-12-30] MEDS: SEVELAMER CARBONATE 800 MG TABLET 2400 MG PO ×3 (10:00→17:04)
[2019-12-30] MEDS: FUROSEMIDE 80 MG TABLET 160 MG PO (10:01)
[2019-12-30] MEDS: NIFEdipine 30 MG TAB.ER.24 90 MG PO (10:01)
[2019-12-30] MEDS: ENALAPRIL MALEATE 10 MG TABLET 20 MG PO ×2 (10:03→21:40)
[2019-12-30] MEDS: carvediloL 6.25 MG TABLET PO ×2 (10:04→21:40)
[2019-12-30] MEDS: GABAPENTIN 300 MG CAPSULE PO ×2 (10:05→21:40)
[2019-12-30] MEDS: PANTOPRAZOLE SODIUM IV 40 MG VIAL IV PUSH ×2 (10:07→21:40)
[2019-12-30] MEDS: PRAMIPEXOLE 0.125 MG TABLET 0.25 MG PO (10:08)
[2019-12-30] MEDS: TERAZOSIN HCL 5 MG CAPSULE 10 MG PO (10:09)
--- NOTE | 2019-12-30 10:59 | PM.IMPN ---
Progress Note: A&P Assessment and Plan (1) Profound anemia: Qualifiers: Anemia type: iron deficiency Iron deficiency anemia type: chronic blood loss Qualified Code(s): D50.0 - Iron deficiency anemia secondary to blood loss (chronic) Code(s): D64.9 - Anemia, unspecified Status: Acute Assessment and Plan: Presumed GI bleed given reports of melena. He will be transfused to a stable hemoglobin. EGD negative 12/28 Eliquis stopped due to bleeding and recent falls with injury Hx weight loss worrisome for malignancy Colonoscopy planned for 12/30 (2) End-stage renal disease on hemodialysis: Code(s): N18.6 - End stage renal disease; Z99.2 - Dependence on renal dialysis Status: Acute Assessment and Plan: Dr. Bridges consulted for dialysis. (3) Insulin dependent type 2 diabetes mellitus: Code(s): E11.9 - Type 2 diabetes mellitus without complications; Z79.4 - assisted (current) use of insulin Status: Acute Assessment and Plan: Continue basal insulin. Continue sliding scale insulin (4) Essential hypertension: Code(s): I10 - Essential (primary) hypertension Status: Acute Assessment and Plan: Blood pressures relatively stable Continue antihypertensives Subjective Date/time seen: 12/30/19 10:59 Interval history: Admitted with melena. Tolerated EGD 12/28. Tolerating clear liquids. Hungry. Tolerating colonoscopy prep. Denied pain or bleeding. Review of Systems Review of Systems: All systems reviewed & are unremarkable except as noted in HPI and below Exam Narrative: Exam Narrative: HEENT: EOMI, PERRL, slcerae nonicteric, pharyngeal mucosa pink and intact NECK: No JVD CHEST: Clear to auscultation. Normal effort. HEART: NL S1/S2, regular, no murmur ABDOMEN: BS+, soft, nontender, no mass, no bruits EXTREMITIES: No cyanosis, edema, or clubbing NEUROLOGIC: CN intact and symmetric to inspection. MUSCULOSKELETAL: Tone and strength symmetric. PSYCH: Alert. Oriented to person, place, and time. Objective Data Vital Signs Vital Signs: Vital Signs - 24 hr 12/29/19 12:06 12/29/19 14:00 12/29/19 20:48 Temperature 98.2 F 98.5 F Pulse Rate 58 L 60 70 Respiratory Rate 16 16 Blood Pressure 144/57 H 138/47 L Pulse Oximetry 97 99 12/29/19 22:00 12/30/19 06:00 Temperature 97.8 F 97.4 F L Pulse Rate 55 L 50 L Respiratory Rate 16 16 Blood Pressure 130/52 L 132/43 L Pulse Oximetry 96 96 Intake/Output Intake/Output: Intake & Output 12/27/19 12/28/19 12/29/19 12/30/19 23:59 23:59 23:59 23:59 Intake Total 659 1050 1800 540 Output Total 3000 300 200 Balance 659 -1950 1500 340 Meds/Results Medications: Active Medications Generic Name Dose Route Start Last Admin Trade Name Freq PRN Reason Stop Dose Admin Acetaminophen 1,000 mg 12/29/19 15:57 12/29/19 16:08 Tylenol Tablet PO 1,000 mg Q6H PRN Administration Mild Pain (1-3) or Fever Amitriptyline HCl 25 mg 12/27/19 22:35 12/29/19 20:48 Elavil PO 25 mg HS DIOGENES Administration Atorvastatin Calcium 20 mg 12/27/19 22:35 12/29/19 20:47 Lipitor PO 20 mg HS DIOGENES Administration Carvedilol 6.25 mg 12/27/19 22:35 12/30/19 10:04 Coreg PO 6.25 mg Q12HR DIOGENES Administration Dextrose 12.5 gm 12/27/19 22:10 12/30/19 06:53 Dextrose 50% Syringe IV PUSH 12.5 gm PRN PRN Administration Hypoglycemia Protocol Enalapril Maleate 20 mg 12/27/19 22:40 12/30/19 10:03 Vasotec PO 20 mg Q12HR DIOGENES Administration Furosemide 160 mg 12/28/19 09:00 12/30/19 10:01 Lasix Tablet PO 160 mg DAILY DIOGENES Administration Gabapentin 300 mg 12/27/19 22:40 12/30/19 10:05 Neurontin PO 300 mg Q12HR DIOGENES Administration Glucagon 1 mg 12/27/19 22:10 Glucagon For Inj IM PRN PRN Hypoglycemia Protocol Glucose 15 gm 12/27/19 22:10 Glutose 15 PO PRN PRN
[2019-12-30] MEDS: INSULIN ASPART (*BKC) 100 UNITS/ML SUB-Q (12:46)
[2019-12-30 13:08] LABS: Glucose Point of Care 320 (65-105)
--- NOTE | 2019-12-30 14:09 | PM.PNNEP ---
Progress Note: A&P Assessment and Plan (1) End stage renal disease: Code(s): N18.6 - End stage renal disease Status: Chronic Assessment and Plan: HD tomorrow and continue M/W/F outpatient dialysis schedule follow electrolytes, volume status, and clearance (2) Profound anemia: Qualifiers: Anemia type: iron deficiency Iron deficiency anemia type: chronic blood loss Qualified Code(s): D50.0 - Iron deficiency anemia secondary to blood loss (chronic) Code(s): D64.9 - Anemia, unspecified Status: Acute Assessment and Plan: related to ESRD and presumed GI blood loss Gastroenterology following EGD results noted; plan for colonoscopy tomorrow follow H/H PRBC transfusion PRN Epogen with HD (3) HTN (hypertension): Code(s): I10 - Essential (primary) hypertension Status: Acute Assessment and Plan: reasonable control at this time follow trend of hemodynamics (4) GERD (gastroesophageal reflux disease): Code(s): K21.9 - Gastro-esophageal reflux disease without esophagitis Status: Acute Assessment and Plan: on PPI (5) Insulin dependent type 2 diabetes mellitus: Code(s): E11.9 - Type 2 diabetes mellitus without complications; Z79.4 - senior care (current) use of insulin Status: Acute Assessment and Plan: follow accuchecks on Lantus and SSI Will continue to follow Subjective Date/time seen: 12/30/19 14:09 Appears to be doing relatively well; remains hemodynamically stable; s/p EGD yesterday with no acute findings; plan for colonoscopy tomorrow; no apparent distress otherwise. Exam Narrative: Exam Narrative: General: WD/WN male in NAD Heart: normal S1 and S2; no rub Lungs: clear to auscultation Abdomen: soft, nontender, nondistended, positive bowel sounds Extremities: no cyanosis or clubbing; no edema Skin: no rash or nodules Objective Data Vital Signs Vital Signs: Vital Signs Temp Pulse Resp BP Pulse Ox 12/30/19 06:00 36.3 C L 50 L 16 132/43 L 96 12/29/19 22:00 36.6 C 55 L 16 130/52 L 96 12/29/19 20:48 70 Intake/Output Intake/Output: Intake & Output 12/27/19 12/28/19 12/29/19 12/30/19 23:59 23:59 23:59 23:59 Intake Total 659 1050 1800 540 Output Total 3000 300 200 Balance 659 -1950 1500 340 Meds/Results Medications: Active Medications Generic Name Dose Route Start Last Admin Trade Name Freq PRN Reason Stop Dose Admin Acetaminophen 1,000 mg 12/29/19 15:57 12/29/19 16:08 Tylenol Tablet PO 1,000 mg Q6H PRN Administration Mild Pain (1-3) or Fever Amitriptyline HCl 25 mg 12/27/19 22:35 12/29/19 20:48 Elavil PO 25 mg HS DIOGENES Administration Atorvastatin Calcium 20 mg 12/27/19 22:35 12/29/19 20:47 Lipitor PO 20 mg HS DIOGENES Administration Carvedilol 6.25 mg 12/27/19 22:35 12/30/19 10:04 Coreg PO 6.25 mg Q12HR DIOGENES Administration Dextrose 12.5 gm 12/27/19 22:10 12/30/19 06:53 Dextrose 50% Syringe IV PUSH 12.5 gm PRN PRN Administration Hypoglycemia Protocol Enalapril Maleate 20 mg 12/27/19 22:40 12/30/19 10:03 Vasotec PO 20 mg Q12HR DIOGENES Administration Furosemide 160 mg 12/28/19 09:00 12/30/19 10:01 Lasix Tablet PO 160 mg DAILY DIOGENES Administration Gabapentin 300 mg 12/27/19 22:40 12/30/19 10:05 Neurontin PO 300 mg Q12HR DIOGENES Administration Glucagon 1 mg 12/27/19 22:10 Glucagon For Inj IM PRN PRN Hypoglycemia Protocol Glucose 15 gm 12/27/19 22:10 Glutose 15 PO PRN PRN Hypoglycemia Protocol Dextrose 1,000 mls @ 100 mls/hr 12/27/19 22:10 Dextrose 5% 1,000 Ml IVPB PRN PRN Hypoglycemia Protocol Albumin Human 50 mls @ 999 mls/hr 12/28/19 02:04 Albutein IVPB 01/27/20 02:05 Q10M PRN HYPOTENSION Insulin Aspart 3 - 6 units 12/28/19 08:00 12/30/19 12:46 Novolog SUB-Q 5 unit
[2019-12-30 16:00] VITALS: BP 130/62; PULSE 98; RESP 18; TEMP 36.9; O2SAT 98
[2019-12-30] MEDS: PEG (High)/E-LYTE SOLN 4,000 ML BTL 4000 ML PO (16:30)
[2019-12-30 16:57] LABS: IFOB Positive Control Positive; Immunochemical Fecal Occult Bl Positive (N)
[2019-12-30 17:42] LABS: Glucose Point of Care 173 (65-105)
[2019-12-30 21:17] LABS: Glucose Point of Care 189 (65-105)
[2019-12-30 21:40] VITALS: PULSE 68
[2019-12-30] MEDS: INSULIN GLARGINE (*BKC) 100 UNITS/ML 20 UNITS SUB-Q (21:41)
[2019-12-30] MEDS: ATORVASTATIN 20 MG TABLET PO (21:41)
[2019-12-30] MEDS: AMITRIPTYLINE HCL 25 MG TABLET PO (21:45)
[2019-12-30 22:00] VITALS: BP 124/50; PULSE 58; RESP 18; TEMP 36.5; O2SAT 97
[2019-12-31] VITALS (11 sets, daily range): BP systolic 124–146; BP diastolic 47–86; PULSE 51–64; RESP 13–18; TEMP 36.3–36.7; O2SAT 95–100
[2019-12-31 06:15] LABS: Hematocrit 25.1 % (42.0-52.0); Hemoglobin 8.1 g/dL (14.0-18.0); Mean Corpuscular HGB Conc 32.3 g/dl (32-36); Mean Corpuscular Hemoglobin 30.1 pg (26-34); Mean Corpuscular Volume 93.3 fl (80-100); Mean Platelet Volume 10.3 fl (7.4-10.4); Platelet Count Result 321 k/mm3 (150-375); Red Blood Count 2.69 M/mm3 (4.6-6.20); Red Cell Distribution Width 15.9 % (11.5-14.5); White Blood Count 8.3 K/mm3 (4.5-10.0)
[2019-12-31 06:36] LABS: Blood Urea Nitrogen 39 mg/dL (9-20); Calcium 7.5 mg/dL (8.4-10.2); Carbon Dioxide 30 mmol/L (22-30); Chloride 93 mmol/L (98-107); Estimated CRCL calculation 12 ml/min; Estimated Glomerular Filt Rate 11; Glucose 37 mg/dL (75-110); Potassium 4.6 mmol/L (3.4-5.0); Sodium 130 mmol/L (137-145)
[2019-12-31] MEDS: DEXTROSE 50% 25 GM/50 ML SYRINGE IV PUSH ×3 (06:42→23:31)
[2019-12-31] MEDS: DEXTROSE 5%/0.9% SOD CHL 1,000 ML 50 ML IV CONT (08:36)
--- NOTE | 2019-12-31 09:50 | PCDIET ---
Nutrition Follow-Up Complete: Nutrition Diagnosis: Inadequate oral intake related to GI bleed as evidenced by NPO status. Nutrition Goal: Patient to meet estimated nutritional needs. Goal not met. Patient previously taking 75-100% of meals on clear liquid diet, but currently NPO for colonoscopy. EGD on 12/29/19 was negative. Last recorded weight is 93.3 kg which is increased from last review. +I/O. Plan for hemodialysis today. Bowel Motility: +BM x 2 today. Labs Reviewed: Hgb (8.1), Hct (25.1), Glu (37), BUN (39), Cr (5.2), Na (130), Ca (7.5) Meds Noted: Albumin, Renvela, Epogen, Lasix, Novolog, Lantus, Protonix, D5NS at 50mL/hr (started today due to low blood sugar) Additional Notes: No albumin level available for calcium correction. Pending results of colonoscopy; expect diet will likely advance later today. Will follow closely with same goal. Nutrition Monitoring and Evaluation: Follow up every 3 days.
[2019-12-31] MEDS: NIFEdipine 30 MG TAB.ER.24 90 MG PO (09:53)
[2019-12-31] MEDS: FUROSEMIDE 80 MG TABLET 160 MG PO (09:53)
[2019-12-31] MEDS: carvediloL 6.25 MG TABLET PO ×2 (09:54→23:06)
[2019-12-31] MEDS: ENALAPRIL MALEATE 10 MG TABLET 20 MG PO ×2 (09:55→23:07)
[2019-12-31 10:08] LABS: Glucose Point of Care 51 (65-105)
[2019-12-31 10:08] LABS: Glucose Point of Care 90 (65-105)
--- NOTE | 2019-12-31 10:22 | PM.IMPN ---
Progress Note: A&P Assessment and Plan (1) Profound anemia: Qualifiers: Anemia type: iron deficiency Iron deficiency anemia type: chronic blood loss Qualified Code(s): D50.0 - Iron deficiency anemia secondary to blood loss (chronic) Code(s): D64.9 - Anemia, unspecified Status: Acute Assessment and Plan: Presumed GI bleed given reports of melena Stool occult blood POSITIVE He was transfused to a stable hemoglobin on day of admission (2 U PRBC) EGD negative 12/28 Eliquis stopped due to bleeding and recent falls with injury Hx weight loss worrisome for malignancy Colonoscopy 12/30 with incomplete prep Repeat colonoscopy planned 12/31 (2) End-stage renal disease on hemodialysis: Code(s): N18.6 - End stage renal disease; Z99.2 - Dependence on renal dialysis Status: Acute Assessment and Plan: Dr. Bridges consulted for dialysis. (3) Insulin dependent type 2 diabetes mellitus: Code(s): E11.9 - Type 2 diabetes mellitus without complications; Z79.4 - [facility] (current) use of insulin Status: Acute Assessment and Plan: Continue basal insulin but at reduced dose due to 12/30 AM hypoglycemia of 37 Continue sliding scale insulin (4) Essential hypertension: Code(s): I10 - Essential (primary) hypertension Status: Acute Assessment and Plan: Blood pressures relatively stable Continue antihypertensives Subjective Date/time seen: 12/31/19 10:22 Interval history: Admitted with melena. Tolerated EGD 12/28. Tolerating clear liquids. Hungry. Tolerated colonoscopy prep. Denied pain or bleeding. Review of Systems Review of Systems: All systems reviewed & are unremarkable except as noted in HPI and below Exam Narrative: Exam Narrative: HEENT: EOMI, PERRL, slcerae nonicteric, pharyngeal mucosa pink and intact NECK: No JVD CHEST: Clear to auscultation. Normal effort. HEART: NL S1/S2, regular, no murmur ABDOMEN: BS+, soft, nontender, no mass, no bruits EXTREMITIES: No cyanosis, edema, or clubbing NEUROLOGIC: CN intact and symmetric to inspection. MUSCULOSKELETAL: Tone and strength symmetric. PSYCH: Alert. Oriented to person, place, and time. Objective Data Vital Signs Vital Signs: Vital Signs - 24 hr 12/30/19 16:00 12/30/19 21:40 12/30/19 22:00 Temperature 98.5 F 97.7 F Pulse Rate 98 68 58 L Respiratory Rate 18 18 Blood Pressure 130/62 124/50 L Pulse Oximetry 98 97 12/31/19 06:15 12/31/19 09:54 Temperature 98.1 F Pulse Rate 52 L 64 Respiratory Rate 16 Blood Pressure 127/47 L Pulse Oximetry 95 Intake/Output Intake/Output: Intake & Output 12/28/19 12/29/19 12/30/19 12/31/19 23:59 23:59 23:59 23:59 Intake Total 1050 1800 1570 480 Output Total 3000 300 200 50 Balance -1950 1500 1370 430 Meds/Results Medications: Active Medications Generic Name Dose Route Start Last Admin Trade Name Freq PRN Reason Stop Dose Admin Acetaminophen 1,000 mg 12/29/19 15:57 12/29/19 16:08 Tylenol Tablet PO 1,000 mg Q6H PRN Administration Mild Pain (1-3) or Fever Amitriptyline HCl 25 mg 12/27/19 22:35 12/30/19 21:45 Elavil PO 25 mg HS DIOGENES Administration Atorvastatin Calcium 20 mg 12/27/19 22:35 12/30/19 21:41 Lipitor PO 20 mg HS DIOGENSE Administration Carvedilol 6.25 mg 12/27/19 22:35 12/31/19 09:54 Coreg PO 6.25 mg Q12HR DIOGENES Administration Dextrose 12.5 gm 12/27/19 22:10 12/31/19 08:36 Dextrose 50% Syringe IV PUSH 12.5 gm PRN PRN Administration Hypoglycemia Protocol Enalapril Maleate 20 mg 12/27/19 22:40 12/31/19 09:55 Vasotec PO 20 mg Q12HR DIOGENES Administration Epoetin Homar 20,000 units 12/31/19 19:00 Epogen IV PUSH 12/31/19 19:01 ONCE ONE Furosemide 160 mg 12/28/19 09:00 12/31/19 09:53 Lasix Tablet PO 160 mg DAILY DIOGENES Administration Gabapentin 300 mg 12/27/19 22:40 12/30/19 21:40
--- NOTE | 2019-12-31 10:45 | PC.NURSE ---
Pt to GI lab via stretcher. IV intact.
[2019-12-31 10:49] LABS: Glucose Point of Care 98 (65-105)
[2019-12-31] MEDS: SODIUM CHLORIDE 0.9% IV 500 ML 10 ML IV CONT (10:58)
--- NOTE | 2019-12-31 11:01 | P.PNAN_ITS ---
Anes - Eval Final PreProcedure Day of Procedure 12/31/19 11:01 Patient weight: normal Heart: regular rate and rhythm Lungs: clear to auscultation Airway: Mallampati scale class II Neurological: alert and oriented Last oral intake: >/= 8 hours ASA classification: IV Emergent: no Anesthetic plan: proceed Anesthesia type and monitoring: general GIVS and standard monitoring Informed Consent: The patient's anesthetic plan and its attendant risks and b enefits were discussed with the patient/family/POA. Questions were solicited and answers provided to the satisfaction of the patient/family/POA.
[2019-12-31 12:05] LABS: Glucose Point of Care 86 (65-105)
--- NOTE | 2019-12-31 12:31 | PC.NURSE ---
Pt returned from GI per stretcher.
[2019-12-31] MEDS: SEVELAMER CARBONATE 800 MG TABLET 2400 MG PO (14:14)
[2019-12-31] MEDS: PANTOPRAZOLE SODIUM IV 40 MG VIAL IV PUSH ×2 (14:14→23:08)
[2019-12-31] MEDS: TERAZOSIN HCL 5 MG CAPSULE 10 MG PO (14:15)
[2019-12-31] MEDS: GABAPENTIN 300 MG CAPSULE PO ×2 (14:15→23:08)
[2019-12-31] MEDS: PRAMIPEXOLE 0.125 MG TABLET 0.25 MG PO (14:16)
[2019-12-31] MEDS: PEG (High)/E-LYTE SOLN 4,000 ML BTL 4000 ML PO (14:26)
[2019-12-31 14:30] LABS: Glucose Point of Care 160 (65-105)
--- NOTE | 2019-12-31 17:11 | PM.PNNEP ---
Progress Note: A&P Assessment and Plan (1) End stage renal disease: Code(s): N18.6 - End stage renal disease Status: Chronic Assessment and Plan: HD due today. Volume status looks okay. He has no edema and his lungs are clear. Potassium is 4.6. because of his colon prep we will hold off on dialysis until tomorrow. (2) Profound anemia: Qualifiers: Anemia type: iron deficiency Iron deficiency anemia type: chronic blood loss Qualified Code(s): D50.0 - Iron deficiency anemia secondary to blood loss (chronic) Code(s): D64.9 - Anemia, unspecified Status: Acute Assessment and Plan: related to ESRD and presumed GI blood loss Gastroenterology following EGD results noted; Colonoscopy again tomorrow after another prep. Hemoglobin 8.1 today. PRBC transfusion PRN Epogen with HD (3) HTN (hypertension): Code(s): I10 - Essential (primary) hypertension Status: Acute Assessment and Plan: Blood pressure is doing well. On enalapril, terazosin, and nifedipine. (4) GERD (gastroesophageal reflux disease): Code(s): K21.9 - Gastro-esophageal reflux disease without esophagitis Status: Acute Assessment and Plan: on PPI (5) Insulin dependent type 2 diabetes mellitus: Code(s): E11.9 - Type 2 diabetes mellitus without complications; Z79.4 - half-way (current) use of insulin Status: Acute Assessment and Plan: follow accuchecks on Lantus and SSI Will continue to follow Subjective Date/time seen: 12/31/19 17:11 Interval history: Patient is alert. He went for colonoscopy and it was an inadequate prep. So now he is prepping again. Review of Systems Cardiovascular: Cardiovascular: Reports no additional cardiovascular complaints Respiratory: Respiratory: Reports no additional respiratory complaints Gastrointestinal: Gastrointestinal: Reports no additional gastrointestinal complaints Genitourinary: Genitourinary: Reports no additional male genitourinary complaints Exam Narrative: Exam Narrative: General: WD/WN male in NAD Heart: normal S1 and S2; no rub Lungs: clear Abdomen: soft, nontender, nondistended, positive bowel sounds Extremities: no cyanosis or clubbing; no edema Skin: no rash Objective Data Vital Signs Vital Signs: Vital Signs - 24 hr 12/30/19 21:40 12/30/19 22:00 12/31/19 06:15 Temperature 36.5 C 36.7 C Pulse Rate 68 58 L 52 L Respiratory Rate 18 16 Blood Pressure 124/50 L 127/47 L Pulse Oximetry 97 95 12/31/19 09:54 12/31/19 10:59 12/31/19 11:48 Temperature 36.4 C L Pulse Rate 64 59 L 55 L Respiratory Rate 14 16 Blood Pressure 146/54 H 132/86 Pulse Oximetry 98 97 12/31/19 11:58 12/31/19 12:11 12/31/19 12:30 Temperature 36.3 C L Pulse Rate 51 L 54 L 58 L Respiratory Rate 13 14 16 Blood Pressure 143/68 H 142/67 H 146/58 H Pulse Oximetry 97 97 98 12/31/19 14:00 Temperature 36.3 C L Pulse Rate 57 L Respiratory Rate 18 Blood Pressure 134/68 Pulse Oximetry 97 Intake/Output Intake/Output: Intake & Output 12/28/19 12/29/19 12/30/19 12/31/19 23:59 23:59 23:59 23:59 Intake Total 1050 1800 1570 700 Output Total 3000 300 200 50 Balance -1950 1500 1370 650 Meds/Results Medications: Active Medications Generic Name Dose Route Start Last Admin Trade Name Freq PRN Reason Stop Dose Admin Acetaminophen 1,000 mg 12/29/19 15:57 12/29/19 16:08 Tylenol Tablet PO 1,000 mg Q6H PRN Administration Mild Pain (1-3) or Fever Amitriptyline HCl 25 mg 12/27/19 22:35 12/30/19 21:45 Elavil PO 25 mg HS DIOGENES Administration Atorvastatin Calcium 20 mg 12/27/19 22:35 12/30/19 21:41 Lipitor PO 20 mg HS DIOGENES Administration Carvedilol 6.25 mg 12/27/19 22:35 12/31/19 09:54 Coreg PO 6.25 mg Q12HR DIOGENES Administration Dextrose 12.5 gm 12/27/19 22:10 12/31/19 08:36 Dextrose 50% Syringe IV PUSH
[2019-12-31 18:32] LABS: Glucose Point of Care 168 (65-105)
[2019-12-31] MEDS: ATORVASTATIN 20 MG TABLET PO (23:06)
[2019-12-31] MEDS: AMITRIPTYLINE HCL 25 MG TABLET PO (23:06)
[2020-01-01] VITALS (26 sets, daily range): BP systolic 118–161; BP diastolic 48–84; PULSE 56–67; RESP 16–24; TEMP 36.4–37; O2SAT 92–100
[2020-01-01 00:35] LABS: Glucose Point of Care 82 (65-105)
[2020-01-01 00:35] LABS: Glucose Point of Care 51 (65-105)
[2020-01-01 05:44] LABS: Creatinine Urine 66.5 mg/dL
[2020-01-01 05:49] LABS: Sodium Urine Random 31 meq/L
[2020-01-01 06:32] LABS: Hematocrit 25.1 % (42.0-52.0); Hemoglobin 8.2 g/dL (14.0-18.0); Mean Corpuscular HGB Conc 32.7 g/dl (32-36); Mean Corpuscular Hemoglobin 30.3 pg (26-34); Mean Corpuscular Volume 92.6 fl (80-100); Mean Platelet Volume 9.9 fl (7.4-10.4); Platelet Count Result 330 k/mm3 (150-375); Red Blood Count 2.71 M/mm3 (4.6-6.20); Red Cell Distribution Width 15.7 % (11.5-14.5); White Blood Count 7.8 K/mm3 (4.5-10.0)
[2020-01-01 06:35] LABS: Glucose Point of Care 43 (65-105)
--- NOTE | 2020-01-01 06:44 | WPDANESEFPP ---
Anes - Eval Final PreProcedure Day of Procedure 01/01/20 06:44 Patient weight: overweight Heart: regular rate and rhythm Lungs: clear to auscultation Airway: Mallampati scale class II Neurological: alert and oriented Last oral intake: >/= 8 hours ASA classification: IV Emergent: no Anesthetic plan: proceed Anesthesia type and monitoring: general GIVS and standard monitoring Informed Consent: The patient's anesthetic plan and its attendant risks and benefits were discussed with the patient/family/POA. Questions were solicited and answers provided to the satisfaction of the patient/family/POA.
[2020-01-01] MEDS: SODIUM CHLORIDE 0.9% IV 500 ML 10 ML IV CONT (06:49)
[2020-01-01] MEDS: DEXTROSE 50% 25 GM/50 ML SYRINGE IV PUSH ×2 (06:49→08:32)
--- NOTE | 2020-01-01 06:54 | SUR.PREOP ---
7900 DR TOBIAS CALLED WITH BEDSIDE BLOOD SUGAR RESULTS ORDER RECEIVED OVER THE PHONE. [id number] DR. TOBIAS HERE TO SEE PATIENT, PATIENT MORE AWAKE AND ALERT.
[2020-01-01 07:04] LABS: Blood Urea Nitrogen 39 mg/dL (9-20); Calcium 7.5 mg/dL (8.4-10.2); Carbon Dioxide 28 mmol/L (22-30); Chloride 93 mmol/L (98-107); Estimated CRCL calculation 11 ml/min; Estimated Glomerular Filt Rate 9; Glucose 35 mg/dL (75-110); Potassium 4.5 mmol/L (3.4-5.0); Sodium 131 mmol/L (137-145)
[2020-01-01 07:20] LABS: Glucose Point of Care 70 (65-105)
[2020-01-01 08:29] LABS: Glucose Point of Care 62 (65-105)
--- NOTE | 2020-01-01 08:29 | SUR.PHASEII ---
0829 PATIENT'S BEDSIDE BLOOD SUGAR WAS 62 DR TOBIAS CALLED AND ORDERS RECEIVED.
[2020-01-01] MEDS: TERAZOSIN HCL 5 MG CAPSULE 10 MG PO (09:03)
[2020-01-01] MEDS: ENALAPRIL MALEATE 10 MG TABLET 20 MG PO (09:03)
[2020-01-01] MEDS: FUROSEMIDE 80 MG TABLET 160 MG PO (09:03)
[2020-01-01] MEDS: SEVELAMER CARBONATE 800 MG TABLET 2400 MG PO (09:04)
[2020-01-01] MEDS: GABAPENTIN 300 MG CAPSULE PO (09:04)
[2020-01-01] MEDS: PRAMIPEXOLE 0.125 MG TABLET 0.25 MG PO (09:05)
[2020-01-01] MEDS: carvediloL 6.25 MG TABLET PO (09:05)
[2020-01-01] MEDS: NIFEdipine 30 MG TAB.ER.24 90 MG PO (09:05)
[2020-01-01] MEDS: PANTOPRAZOLE SODIUM IV 40 MG VIAL IV PUSH (09:06)
--- NOTE | 2020-01-01 10:23 | PM.PNNEP ---
Progress Note: A&P Assessment and Plan (1) End stage renal disease: Code(s): N18.6 - End stage renal disease Status: Chronic Assessment and Plan: HD due today. Volume status looks okay. He has no edema and his lungs are clear. Potassium is still okay. Will get dialysis. Okay for discharge any time ready with others. (2) Profound anemia: Qualifiers: Anemia type: iron deficiency Iron deficiency anemia type: chronic blood loss Qualified Code(s): D50.0 - Iron deficiency anemia secondary to blood loss (chronic) Code(s): D64.9 - Anemia, unspecified Status: Acute Assessment and Plan: related to ESRD and presumed GI blood loss Gastroenterology following EGD results noted; Colonoscopy showed polyps and some hemorrhoids. Hemoglobin 8.2 today. PRBC transfusion PRN Epogen with HD (3) HTN (hypertension): Code(s): I10 - Essential (primary) hypertension Status: Acute Assessment and Plan: Blood pressure is doing well. On enalapril, terazosin, and nifedipine. 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 Had colonoscopy this morning. He is eating breakfast and is going to dialysis shortly Review of Systems Cardiovascular: Cardiovascular: Reports no additional cardiovascular complaints Respiratory: Respiratory: Reports no additional respiratory complaints Gastrointestinal: Gastrointestinal: Reports no additional gastrointestinal complaints Genitourinary: Genitourinary: Reports no additional male genitourinary complaints Exam Narrative: Exam Narrative: General: WD/WN male in NAD Heart: normal S1 and S2; no rub Lungs: clear to auscultation Abdomen: soft, nontender, nondistended, positive bowel sounds Extremities: no cyanosis or clubbing; no edema Skin: no rash or subcu nodules Objective Data Vital Signs Vital Signs: Vital Signs - 24 hr 12/31/19 10:59 12/31/19 11:48 12/31/19 11:58 Temperature 36.4 C L Pulse Rate 59 L 55 L 51 L Respiratory Rate 14 16 13 Blood Pressure 146/54 H 132/86 143/68 H Pulse Oximetry 98 97 97 12/31/19 12:11 12/31/19 12:30 12/31/19 14:00 Temperature 36.3 C L 36.3 C L Pulse Rate 54 L 58 L 57 L Respiratory Rate 14 16 18 Blood Pressure 142/67 H 146/58 H 134/68 Pulse Oximetry 97 98 97 12/31/19 22:00 12/31/19 22:54 12/31/19 23:06 Temperature 36.6 C Pulse Rate 61 63 Respiratory Rate 18 Blood Pressure 124/47 L 125/50 L Pulse Oximetry 100 01/01/20 02:00 01/01/20 06:00 01/01/20 06:33 Temperature 36.8 C 36.4 C 36.9 C Pulse Rate 61 56 L 56 L Respiratory Rate 16 16 16 Blood Pressure 129/53 L 128/48 L 118/53 L Pulse Oximetry 96 93 92 01/01/20 08:01 01/01/20 08:11 01/01/20 08:21 Temperature Pulse Rate 56 L 57 L 57 L Respiratory Rate 16 24 H 22 H Blood Pressure 126/56 L 126/84 123/52 L Pulse Oximetry 100 97 96 01/01/20 08:45 01/01/20 09:05 Temperature 36.5 C Pulse Rate 57 L 60 Respiratory Rate 16 Blood Pressure 130/66 Pulse Oximetry 93 Intake/Output Intake/Output: Intake & Output 12/29/19 12/30/19 12/31/19 01/01/20 23:59 23:59 23:59 23:59 Intake Total 1800 1570 3450 550 Output Total 300 200 50 Balance 1500 1370 3400 550 Meds/Results Medications: Active Medications Generic Name Dose Route Start Last Admin Trade Name Freq PRN Reason Stop Dose Admin Acetaminophen 1,000 mg 12/29/19 15:57 12/29/19 16:08 Tylenol Tablet PO 1,000 mg Q6H PRN A
[2020-01-01] MEDS: EPOETIN ALFA 10,000 UNITS/ML VIAL 10000 UNITS IV PUSH (12:08)
[2020-01-01 15:09] LABS: Glucose Point of Care 124 (65-105)
[2020-01-01 16:55] LABS: Glucose Point of Care 102 (65-105)
--- NOTE | 2020-01-02 18:27 | PM.DS ---
DS: Diagnosis Admitting Diagnosis Admitting Diagnosis: Anemia, unspecified Discharge Diagnosis (1) Profound anemia: Qualifiers: Anemia type: iron deficiency Iron deficiency anemia type: chronic blood loss Qualified Code(s): D50.0 - Iron deficiency anemia secondary to blood loss (chronic) Code(s): D64.9 - Anemia, unspecified Status: Acute Assessment and Plan: Presumed GI bleed given reports of melena Stool occult blood POSITIVE He was transfused to a stable hemoglobin on day of admission (2 U PRBC) EGD negative 12/28 Eliquis stopped due to bleeding and recent falls with injury Hx weight loss worrisome for malignancy Colonoscopy 12/31 hemorrhoids and diverticulosis but no active sites of bleeding Hemoglobin stable at 8.2 will be discharged home today follow-up with primary care for repeat CBC within 2 weeks (2) End-stage renal disease on hemodialysis: Code(s): N18.6 - End stage renal disease; Z99.2 - Dependence on renal dialysis Status: Acute Assessment and Plan: Dr. Bridges consulted for dialysis. Continue dialysis Tuesday receive dialysis day of discharge (3) Insulin dependent type 2 diabetes mellitus: Code(s): E11.9 - Type 2 diabetes mellitus without complications; Z79.4 - prison (current) use of insulin Status: Acute Assessment and Plan: Had episodes of hypoglycemia while here. Had been on Lantus 20 units q.12 hours. Decreased distal 20 units daily at discharge, blood sugar 124 before noon meal day of discharge (4) Essential hypertension: Code(s): I10 - Essential (primary) hypertension Status: Acute Assessment and Plan: Blood pressures relatively stable Continue antihypertensives as recently prescribed DS: Summary Hospital Course Hospital Course: 79-year-old white male admitted with anemia and guaiac-positive stool. Transfuse 2 units of packed cells and hemoglobin remained stable at 8.2 on the day of discharge. EGD and colonoscope exam failed to reveal any source of bleeding although he did had diverticular disease and hemorrhoids on colonoscopy. His aspirin and Eliquis were discontinued and he will have a CBC on 01/13 before follow-up with his primary Time Spent with Patient Time attestation: Total time spent providing and/or coordinating discharge services: 35 minutes Exam Narrative: Exam Narrative: Condition on discharge Blood pressure 134/60 pulse is 66 saturating 96% on room air afebrile Lungs clear CV regular rate rhythm Abdomen is soft nontender Extremities without edema good distal pulses Neuro alert pleasant cooperative DS: Data Data Completed and Pending Completed studies during hospitalization: Pending at discharge 12/31/19 11:46 Surgical [PTH] Routine 01/01/20 07:58 Surgical [PTH] Routine Discharge Plan Discharge Attending physician on discharge: Jovani Thompson Consulting providers: Jesi Bridges ; Tony Balderas ; Lorri Kahn ; Guille Louis ; Wyatt Aldana ; Hai Marquez ; Nathan Craig ; Ramon Moyer Discharging Clinician: Jovani Thompson Patient Disposition: Home Health Service Activity: as tolerated Diet: diabetic and renal Discharge Instructions: Per Care Coordination: Patient will have [facility] for half-way, physical therapy, and occupation therapy. They can be contacted at [phone] Patient Instructions: Antibiotic Form, Gastrointestinal Bleeding (DC), Hemodialysis (DC), Type 2 Diabetes in the Older Adult (DC) Stand Alone Forms: General Discharge Information Follow-up/Referrals: Herbert Sam DO [Primary Care Provider] - 2 Weeks Discharge Medications: Continued furosemide 80 mg tablet 160 mg PO DAILY RF: 0 carvedilol 12.5 mg tablet 6.25 mg PO Q12H RF: 0 enalapril maleate 20 mg tablet 20 mg PO BID RF: 0 gabapentin 300 mg capsule 300 mg
== END 2020-01-01 15:14 | disposition home health service (06) | DRG 377 ==
LOC: ANHED 16:59 → ANH3MEDSUR 17:42 → ANHIMU 22:20 → ANH3MEDSUR 12-31 10:23 → ANHIMU 01-02 14:41
PROVIDERS: Internal Medicine; Internal Medicine Gastroenterology; Internal Medicine Nephrology; Physician Assistant; Admitting Provider Family Medicine; Emergency Provider Emergency Medicine; PCP Internal Medicine; Visit Provider Internal Medicine
PROC: 0DJ08ZZ Inspection of Upper Intestinal Tract, Via Natural or Artificial Opening Endoscopic (ICD-10-PCS; CPT 43235; principal; 2019-12-29 07:30)
PROC: 0DJD8ZZ Inspection of Lower Intestinal Tract, Via Natural or Artificial Opening Endoscopic (ICD-10-PCS; CPT 45378; principal; 2019-12-31 11:00)
DX: K92.2 Gastrointestinal hemorrhage, unspecified (principal); N18.6 End stage renal disease; D62 Acute posthemorrhagic anemia; I13.2 Hypertensive heart and chronic kidney disease with heart failure and with stage 5 chronic kidney disease, or end stage renal disease; I50.32 Chronic diastolic (congestive) heart failure; D12.2 Benign neoplasm of ascending colon; K57.30 Diverticulosis of large intestine without perforation or abscess without bleeding; K64.8 Other hemorrhoids; D63.1 Anemia in chronic kidney disease; K21.9 Gastro-esophageal reflux disease without esophagitis; E11.22 Type 2 diabetes mellitus with diabetic chronic kidney disease; I25.10 Atherosclerotic heart disease of native coronary artery without angina pectoris; E11.42 Type 2 diabetes mellitus with diabetic polyneuropathy; E78.5 Hyperlipidemia, unspecified; G47.33 Obstructive sleep apnea (adult) (pediatric); M19.90 Unspecified osteoarthritis, unspecified site; F41.8 Other specified anxiety disorders; Z66 Do not resuscitate; Z99.2 Dependence on renal dialysis; Z85.828 Personal history of other malignant neoplasm of skin; Z86.73 Personal history of transient ischemic attack (TIA), and cerebral infarction without residual deficits; I25.2 Old myocardial infarction; Z95.1 Presence of aortocoronary bypass graft; Z87.891 Personal history of nicotine dependence; Z79.01 Long term (current) use of anticoagulants; Z79.82 Long term (current) use of aspirin; Z79.4 Long term (current) use of insulin; Z98.42 Cataract extraction status, left eye; Z98.41 Cataract extraction status, right eye
CPT/HCPCS: 36415; 36430; 73070; 73562; 80048; 80053; 80074; 82274; 82570; 82607; 82728; 82746; 83540; 83550; 83735; 84100; 84300; 85014; 85018; 85025; 85027; 85610; 85730; 86706; 86850; 86900; 86901; 86923; 87040; 87340; 88305; 93005; 96360; 99285; A9270; C9113; G0257; J1815; J2001; J2704; J7030; J7040; J7042; J7050; J7120; P9016; Q4081

== ENCOUNTER 2020-01-06 05:27 | Emergency (ER) | payer OTHER, SELFPAY ==
--- NOTE | ~2020-01-06 | XR_ITS ---
EXAMINATION: XR elbow LT min 3V DATE: 01/06/2020 06:01 INDICATION: Left elbow pain TECHNIQUE: Anteroposterior, two oblique and lateral views of the left elbow were obtained. COMPARISON: 12/29/2019 FINDINGS: Alignment is normal. No fracture or joint effusion. Mild osteoarthritis is noted.. There is increased posterior soft tissue swelling of the elbow. IMPRESSION: 1. Worsened posterior soft tissue swelling without acute osseous abnormality. Reviewed, dictated and finalized at location A.
[2020-01-06 05:33] VITALS: BP 143/52; PULSE 75; RESP 18; TEMP 37.3; O2SAT 100
--- NOTE | 2020-01-06 05:55 | ED.EXTPRO ---
HPI - Extremity Problem General Chief complaint: Extremity Injury, Upper Stated complaint: L Elbow Pain Time Seen by Provider: 01/06/20 05:37 Source: patient Mode of arrival: ambulatory Limitations: no limitations History of Present Illness HPI Narrative: Patient is a 79-year-old male who presents to the emergency department complaint of left elbow pain. Patient reports falling approximately a week and a half ago and injuring his left elbow and right knee. Patient had x-ray of his left elbow completed on 12/29/2019. No abnormality was noted. Patient complains of ongoing pain to his left elbow that is tender to touch. Patient denies any new injuries. Patient has taken occasional aspirin for his pain. He has not tried Tylenol. Patient was previously on Eliquis, which was discontinued during his most recent hospitalization. Patient was in the hospital from 12/27/2019 through 01/01/2020. Patient has not followed up with anyone as an outpatient for his elbow. MD Complaint: joint paint Onset (ago): week(s) (1.5) Pain Consistency: constant Location: left and elbow Relieving factors: nothing Exacerbating factors: range of motion and palpation Related Data Home Medications Medication Instructions Recorded Confirmed carvedilol 12.5 mg tablet 6.25 mg PO Q12H 09/11/19 12/27/19 enalapril maleate 20 mg tablet 20 mg PO BID 09/11/19 12/27/19 gabapentin 300 mg capsule 300 mg PO BID 09/11/19 12/27/19 nifedipine 90 mg tablet,extended 90 mg PO DAILY 09/11/19 12/27/19 release pramipexole 0.125 mg tablet 0.25 mg PO DAILY tablet 09/11/19 12/27/19 sevelamer carbonate 800 mg tablet 2,400 mg PO TID tablet 09/11/19 12/27/19 terazosin 10 mg capsule 10 mg PO DAILY 09/11/19 12/27/19 furosemide 80 mg tablet 160 mg PO DAILY 10/05/19 12/27/19 amitriptyline 25 mg PO HS 12/02/19 12/27/19 atorvastatin 20 mg PO HS 12/02/19 12/27/19 Allergies Allergy/AdvReac Type Severity Reaction Status Date / Time cortisone Allergy Unknown Unknown Verified 12/27/19 19:54 zolpidem Allergy Unknown Unverified 01/01/20 15:12 Review of Systems Review of Systems: All systems reviewed & are unremarkable except as noted in HPI and below PMFSH Past Medical History Medical History Anemia of chronic disease Coronary artery disease Depression with anxiety Diabetic peripheral neuropathy Diastolic congestive heart failure Most recent echocardiogram showed an ejection fraction of 55 to 60%, diastolic grade 3 dysfunction, mild left atrial enlargement, mild mitral valve regurgitation, moderate pulmonary hypertension, and mild pulmonic regurgitation. Diverticulosis With history of diverticulitis. Dyslipidemia End-stage renal disease on hemodialysis Patient of Dr. Veliz in [place]. He receives dialysis on Tuesday, Tuesday, and Tuesday at [facility] in [place]. Essential hypertension Gastroesophageal reflux disease Gout Insulin dependent type 2 diabetes mellitus Myocardial infarct Obstructive sleep apnea Intolerant to CPAP. Osteoarthritis Shingles Skin cancer Transient ischemic attack Surgical History Surgical History History of arthroscopy of left knee With meniscus repair. History of cardiac catheterization History of cataract extraction History of repair of right rotator cuff History of three vessel coronary artery bypass 2010. History of tonsillectomy Status post surgical removal of malignant neoplasm of skin Excised from back and upper extremity. Social History Social History Social History: Surrogate decision maker: Son, Jovani Gonzalez. Code status: DNR. Smoking packs per day: 1 Smoking cigarettes per day: 20.0 Years smoked: 5 Smoking pack-years: 5.00 Smoking status: Former smoker Tobacco type: cigarettes Second hand tobacco smoke exposure: Yes Alcohol intake:
[2020-01-06 06:27] VITALS: PULSE 71; RESP 20; O2SAT 100
== END 2020-01-06 06:29 | disposition home or self-care (01) ==
PROVIDERS: Emergency Provider Emergency Medicine; PCP Internal Medicine
DX: M70.22 Olecranon bursitis, left elbow (principal); E11.42 Type 2 diabetes mellitus with diabetic polyneuropathy; I25.10 Atherosclerotic heart disease of native coronary artery without angina pectoris; E78.5 Hyperlipidemia, unspecified; N18.6 End stage renal disease; I13.2 Hypertensive heart and chronic kidney disease with heart failure and with stage 5 chronic kidney disease, or end stage renal disease; I50.32 Chronic diastolic (congestive) heart failure; E11.22 Type 2 diabetes mellitus with diabetic chronic kidney disease; Z99.2 Dependence on renal dialysis; K21.9 Gastro-esophageal reflux disease without esophagitis; I25.2 Old myocardial infarction; G47.33 Obstructive sleep apnea (adult) (pediatric); Z85.828 Personal history of other malignant neoplasm of skin; Z86.73 Personal history of transient ischemic attack (TIA), and cerebral infarction without residual deficits; M19.90 Unspecified osteoarthritis, unspecified site; Z98.49 Cataract extraction status, unspecified eye; Z95.1 Presence of aortocoronary bypass graft; Z66 Do not resuscitate; Z87.891 Personal history of nicotine dependence; Z79.4 Long term (current) use of insulin
CPT/HCPCS: 73080; 99283

== ENCOUNTER 2020-02-21 11:42 | Outpatient (CLI) | payer OTHER, SELFPAY ==
--- NOTE | ~2020-02-21 | XR_ITS ---
EXAMINATION: XR lumbar spine 2-3V DATE: 02/21/2020 12:12 INDICATION: Dorsalgia, unspecified. TECHNIQUE: 3 views of lumbar spine were obtained. COMPARISON: Lumbar spine radiographs 04/18/2019. FINDINGS: There is 4 degrees dextrocurvature of thoracolumbar spine. There is 3 mm retrolisthesis of L2 on L3 and L3 on L4. There is mild chronic anterior wedging of T12 vertebral body. There is moderat antonio decreased disc height at T12-L1 and mildly decreased disc height at L2-L3 and L3-L4. There is mul tilevel severe facet joint osteoarthritis. IMPRESSION: 1. Stable moderate lumbar and lower thoracic spondylosis. Reviewed, dictated and finalized at location A.
== END 2020-02-21 11:43 | disposition home or self-care (01) ==
LOC: ANHIMG 11:49
PROVIDERS: PCP Internal Medicine; Visit Provider Internal Medicine
DX: M47.894 Other spondylosis, thoracic region (principal); M47.896 Other spondylosis, lumbar region
CPT/HCPCS: 72100

== ENCOUNTER 2020-03-01 03:23 | Emergency (ER) | payer OTHER, SELFPAY ==
--- NOTE | ~2020-03-01 | XR_ITS ---
XR forearm LT 2V, XR humerus LT 03/01/2020 04:02 (accession [id number]), 03/01/2020 04:03 (accession [id number]) Indication: Status post recent fall. Left arm pain. Procedure: 2 views left humerus and 2 views left forearm Comparison: No prior studies for comparison. Findings: Osteopenia. Extensive arterial calcification. Mild degenerative changes of the elbow and wr ist. There is mild soft tissue swelling dorsal to the elbow. No foreign bodies. No acute fracture or traumatic malalignment. Impression: 1: No acute fracture. Reviewed, dictated and finalized at location A. Impression: 1: No acute fracture. Impression: 1: No acute fracture.
[2020-03-01 03:28] VITALS: BP 153/43; PULSE 71; RESP 19; TEMP 36.6; O2SAT 100
--- NOTE | 2020-03-01 04:25 | ED.UPPEXIN ---
HPI - Extremity Injury (Upper) General Chief Complaint: Extremity Injury, Upper Stated Complaint: L ARM PAIN Time Seen by Provider: 03/01/20 03:43 Source: patient Mode of arrival: ambulatory Limitations: no limitations History of Present Illness HPI narrative: This patient is a 79 year old male who presents for evaluation of left arm pain and bruising. He states on Tuesday he fell and his son and daughter caught him. He states they grabbed under both arms to get him up. St that time he thinks he felt of pop to left arm at his bicep. He developed a bruising and pain to his upper arm just above the elbow. He has been taking arthritis tylenol for his pain. THis bruising developed on Tuesday. He has come to ER for evaluation tonight because he was unable to sleep. He does not think they grabbed his arm. complaint: injury to: left and arm Related Data Home Medications Medication Instructions Recorded Confirmed carvedilol 12.5 mg tablet 6.25 mg PO Q12H 09/11/19 12/27/19 enalapril maleate 20 mg tablet 20 mg PO BID 09/11/19 12/27/19 gabapentin 300 mg capsule 300 mg PO BID 09/11/19 12/27/19 nifedipine 90 mg tablet,extended 90 mg PO DAILY 09/11/19 12/27/19 release pramipexole 0.125 mg tablet 0.25 mg PO DAILY tablet 09/11/19 12/27/19 sevelamer carbonate 800 mg tablet 2,400 mg PO TID tablet 09/11/19 12/27/19 terazosin 10 mg capsule 10 mg PO DAILY 09/11/19 12/27/19 furosemide 80 mg tablet 160 mg PO DAILY 10/05/19 12/27/19 amitriptyline 25 mg PO HS 12/02/19 12/27/19 atorvastatin 20 mg PO HS 12/02/19 12/27/19 Allergies Allergy/AdvReac Type Severity Reaction Status Date / Time cortisone Allergy Unknown Unknown Verified 03/01/20 03:37 zolpidem Allergy Unknown rash Verified 03/01/20 03:37 Review of Systems Review of Systems: All systems reviewed & are unremarkable except as noted in HPI and below PMFSH Past Medical History Medical History Anemia of chronic disease Coronary artery disease Depression with anxiety Diabetic peripheral neuropathy Diastolic congestive heart failure Most recent echocardiogram showed an ejection fraction of 55 to 60%, diastolic grade 3 dysfunction, mild left atrial enlargement, mild mitral valve regurgitation, moderate pulmonary hypertension, and mild pulmonic regurgitation. Diverticulosis With history of diverticulitis. Dyslipidemia End-stage renal disease on hemodialysis Patient of Dr. Veliz in [place]. He receives dialysis on Tuesday, Tuesday, and Tuesday at [facility] in [place]. Essential hypertension Gastroesophageal reflux disease Gout Insulin dependent type 2 diabetes mellitus Myocardial infarct Obstructive sleep apnea Intolerant to CPAP. Osteoarthritis Shingles Skin cancer Transient ischemic attack Social History Social History Social History: Surrogate decision maker: Son, Jovani Gonzalez. Code status: DNR. Smoking packs per day: 1 Smoking cigarettes per day: 20.0 Years smoked: 5 Smoking pack-years: 5.00 Smoking status: Former smoker Tobacco type: cigarettes Second hand tobacco smoke exposure: Yes Alcohol intake: never Substance use: never Additional living arrangements comments: Lives independently in [place], [place]. He is . Additional occupation/education comments: In the [place] during [place]. 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 Gender identity (if verbalized by the patient): Male Spiritual care concerns: No Agree to blood products: Yes Exam Const: General: no acute distress and alert Orientation/consciousness: patient oriented x3 HENMT: Head: normocephalic and atraumatic Face and sinus: face symmetric Mouth: Yes lip normal Resp: Effort & Inspection: normal respiratory effort Extrem: Left upper extremity: full ROM, normal capillary refill and shoulder/upper arm abnormal to inspection other (ecchymosis t
[2020-03-01 05:01] VITALS: BP 139/87; PULSE 78; RESP 14; O2SAT 95
== END 2020-03-01 05:00 | disposition home or self-care (01) ==
PROVIDERS: Emergency Provider General Practice; PCP Internal Medicine
DX: S40.022A Contusion of left upper arm, initial encounter (principal); E11.22 Type 2 diabetes mellitus with diabetic chronic kidney disease; I13.2 Hypertensive heart and chronic kidney disease with heart failure and with stage 5 chronic kidney disease, or end stage renal disease; N18.6 End stage renal disease; I50.30 Unspecified diastolic (congestive) heart failure; D63.1 Anemia in chronic kidney disease; I25.10 Atherosclerotic heart disease of native coronary artery without angina pectoris; F41.8 Other specified anxiety disorders; E78.5 Hyperlipidemia, unspecified; E11.42 Type 2 diabetes mellitus with diabetic polyneuropathy; Z99.2 Dependence on renal dialysis; M10.9 Gout, unspecified; I25.2 Old myocardial infarction; K21.9 Gastro-esophageal reflux disease without esophagitis; G47.33 Obstructive sleep apnea (adult) (pediatric); Z85.828 Personal history of other malignant neoplasm of skin; Z86.73 Personal history of transient ischemic attack (TIA), and cerebral infarction without residual deficits; Z66 Do not resuscitate; Z87.891 Personal history of nicotine dependence; X50.9XXA Other and unspecified overexertion or strenuous movements or postures, initial encounter
CPT/HCPCS: 73060; 73090; 99284

== ENCOUNTER 2020-04-29 09:45 | Outpatient (RCR) | payer OTHER, SELFPAY ==
[2020-04-29 10:30] VITALS: BMI 25.0
== END 2020-07-04 10:17 | disposition home or self-care (01) ==
LOC: ANHWOC 09:45
PROVIDERS: Visit Provider Nurse Practitioner
DX: L89.319 Pressure ulcer of right buttock, unspecified stage (principal)
CPT/HCPCS: 99212; G0463

== ENCOUNTER → 2020-05-08 09:08 | Outpatient (CLI) | payer OTHER, SELFPAY ==
--- NOTE | ~2020-05-08 | MR_ITS ---
EXAMINATION: MR lumbar spine wo con DATE: 05/08/2020 10:31 INDICATION: Lumbar radiculopathy. TECHNIQUE: Magnetic resonance imaging (MRI) of the lumbar spine was performed without intravenous con trast. Sequences included sagittal T2-weighted FSE, sagittal T2-weighted FS FSE, sagittal T1-weighted FSE, and axial T2-weighted FSE. COMPARISON: Lumbar spine radiograph 02/21/2020 FINDINGS: There is 8 degrees dextrocurvature of thoracolumbar spine. There is 4 mm retrolisthesis of L2 on L3 and L3 on L4. There is mild chronic anterior wedging of T12 vertebral body. There is mildly decreased disc height from L2-L3 through L4-L5. The distal spinal cord signal intensity is normal. Th e conus medullaris is at L1-L2. The following disc levels are specifically discussed: L1-L2: The disc is bulging and has an annular fissure. There is no facet joint osteoarthritis. There is mild left neural foraminal stenosis. There is mild central canal stenosis. L2-L3: The disc is bulging. There is severe right and mild left facet joint osteoarthritis. There is mild bilateral neural foraminal stenosis. There is mild central canal stenosis. L3-L4: The disc is bulging and has an annular fissure. There is severe bilateral facet joint osteoart hritis. There is hypertrophy of the ligamentum flavum. There is moderate right and mild left neural f oraminal stenosis. There is moderate central canal stenosis. L4-L5: The disc is bulging and has an annular fissure. There is severe bilateral facet joint osteoart hritis. There is hypertrophy of the ligamentum flavum. There is moderate right and mild left neural f oraminal stenosis. There is mild central canal stenosis. L5-S1: The disc is bulging and has an annular fissure. There is severe bilateral facet joint osteoart hritis. There is mild bilateral neural foraminal stenosis. There is mild central canal stenosis. IMPRESSION: 1. Moderate lumbar spondylosis. Reviewed, dictated and finalized at location B.
== END ==
PROVIDERS: Visit Provider Nurse Practitioner Adult Health
DX: M47.26 Other spondylosis with radiculopathy, lumbar region (principal)
CPT/HCPCS: 72148

== ENCOUNTER 2020-07-10 10:26 | Outpatient (CLI) | payer OTHER, SELFPAY ==
--- NOTE | ~2020-07-10 | XR_ITS ---
XR hip RT min 2V DATE: 07/10/2020 10:52 INDICATION: Right hip pain, buttock pain TECHNIQUE: AP, lateral, crosstable lateral views of right hip COMPARISON: None FINDINGS: No fracture or dislocation, avascular necrosis or bone destruction. There is mild right hip osteoarthritis. Iliac and femoral artery calcifications. IMPRESSION: Mild right hip osteoarthritis Reviewed, dictated and finalized at location A.
== END 2020-07-10 10:27 | disposition home or self-care (01) ==
LOC: ANHIMG 10:32
PROVIDERS: PCP Internal Medicine; Visit Provider Nurse Practitioner
DX: M16.11 Unilateral primary osteoarthritis, right hip (principal)
CPT/HCPCS: 73502

== ENCOUNTER 2020-08-27 00:58 | Emergency (ER) | payer OTHER, SELFPAY ==
--- NOTE | ~2020-08-27 | XR_ITS ---
EXAMINATION: XR hand LT min 3V DATE: 08/27/2020 01:44 INDICATION: Left hand pain. Fall. TECHNIQUE: 3 views of left hand were obtained. COMPARISON: Left hand radiographs/05/28 FINDINGS: Bone alignment is normal. No fracture. Osteopenia is noted. There is a punctate calcificati on radial to the scaphoid. There is severe osteoarthritis of first carpometacarpal joint and mild ost eoarthritis of many of the interphalangeal joints. IMPRESSION: 1. Polyarticular osteoarthritis. Reviewed, dictated and finalized at location A. [employer]
--- NOTE | ~2020-08-27 | XR_ITS ---
EXAMINATION: XR knee LT 3V DATE: 08/27/2020 01:44 INDICATION: Left knee injury. TECHNIQUE: 3 views of left knee were obtained. COMPARISON: Left knee radiographs 10/26/2019 FINDINGS: Bone alignment is normal. No fracture. There is moderate osteoarthritis of medial and later al compartments and mild osteoarthritis of patellofemoral compartment. There is a small knee joint ef fusion. IMPRESSION: 1. Moderate left knee osteoarthritis. 2. Small left knee joint effusion. Reviewed, dictated and finalized at location A. [employer]
[2020-08-27 01:05] VITALS: BP 140/58; PULSE 65; RESP 16; TEMP 36.1; O2SAT 98
[2020-08-27 01:56] VITALS: BP 115/53; PULSE 65; RESP 16; O2SAT 95
--- NOTE | 2020-08-27 02:06 | ED.FALL ---
HPI - Fall General Chief Complaint: Fall Stated Complaint: fall Time Seen by Provider: 08/27/20 01:05 History of Present Illness HPI Narrative: Patient is a 79-year-old male who presents to the ER with complaints of pain to his left wrist and left knee. 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 Did not strike his head or lose consciousness. He has no new numbness or tingling. He has abrasions to his left knee. He is still able to ambulate and still able to flex and extend at the wrist. Related Data Home Medications Medication Instructions Recorded Confirmed carvedilol 12.5 mg tablet 6.25 mg PO Q12H 09/11/19 08/14/20 enalapril maleate 20 mg tablet 20 mg PO BID 09/11/19 08/14/20 gabapentin 300 mg capsule 300 mg PO BID 09/11/19 08/14/20 nifedipine 90 mg tablet,extended 90 mg PO DAILY 09/11/19 08/14/20 release pramipexole 0.125 mg tablet 0.25 mg PO DAILY tablet 09/11/19 08/14/20 sevelamer carbonate 800 mg tablet 2,400 mg PO TID tablet 09/11/19 08/14/20 terazosin 10 mg capsule 10 mg PO DAILY 09/11/19 08/14/20 furosemide 80 mg tablet 160 mg PO DAILY 10/05/19 08/14/20 atorvastatin 20 mg PO HS 12/02/19 08/14/20 acetaminophen 650 mg 650 mg PO Q8H 08/12/20 08/14/20 tablet,extended release aspirin 81 mg tablet,delayed 81 mg PO DAILY 08/12/20 08/14/20 release cholecalciferol (vitamin D3) 125 125 mcg PO DAILY 08/12/20 08/14/20 mcg (5,000 unit) capsule melatonin 5 mg tablet mg PO 08/12/20 08/14/20 sennosides 8.6 mg-docusate sodium 1 tab-cap PO DAILY 08/12/20 08/14/20 50 mg tablet Allergies Allergy/AdvReac Type Severity Reaction Status Date / Time cortisone Allergy Unknown Unknown Verified 07/10/20 08:47 zolpidem Allergy Unknown Unverified 08/06/20 07:16 Review of Systems Constitutional: Constitutional: Denies chills and Denies fever(s) Gastrointestinal: Gastrointestinal: Denies abdominal pain, Denies nausea and Denies vomiting Musculoskeletal: Musculoskeletal: Denies myalgias, Reports arthralgias and Denies joint swelling PMFSH Past Medical History Medical History Anemia of chronic disease Coronary artery disease Depression with anxiety Diabetic peripheral neuropathy Diastolic congestive heart failure Most recent echocardiogram showed an ejection fraction of 55 to 60%, diastolic grade 3 dysfunction, mild left atrial enlargement, mild mitral valve regurgitation, moderate pulmonary hypertension, and mild pulmonic regurgitation. Diverticulosis With history of diverticulitis. Dyslipidemia End-stage renal disease on hemodialysis Patient of Dr. Veliz in [place]. He receives dialysis on Tuesday, Tuesday, and Tuesday at [facility]. Essential hypertension Fracture of unspecified parts of lumbosacral spine and pelvis, initial encounter for closed fracture Gastroesophageal reflux disease Gout Insulin dependent type 2 diabetes mellitus Myocardial infarct Obstructive sleep apnea Intolerant to CPAP. Osteoarthritis Shingles Skin cancer Transient ischemic attack Surgical History Surgical History History of arthroscopy of left knee With meniscus repair. History of cardiac catheterization History of cataract extraction History of repair of right rotator cuff History of three vessel coronary artery bypass 2010. History of tonsillectomy Status post surgical removal of malignant neoplasm of skin Excised from back and upper extremity. Family History Family History Sibling Patient's brother is in good health Mother Family history of malignant neoplasm Patient's mother is Diabetes mellitus Father Congestive heart failure Social History Social History Social Histo
[2020-08-27 02:39] VITALS: BP 130/86; PULSE 65; RESP 16; TEMP 36.3; O2SAT 96
== END 2020-08-27 02:40 | disposition home or self-care (01) ==
PROVIDERS: Emergency Provider Emergency Medicine; PCP Internal Medicine
DX: S63.502A Unspecified sprain of left wrist, initial encounter (principal); S80.212A Abrasion, left knee, initial encounter; D64.9 Anemia, unspecified; I25.10 Atherosclerotic heart disease of native coronary artery without angina pectoris; I13.2 Hypertensive heart and chronic kidney disease with heart failure and with stage 5 chronic kidney disease, or end stage renal disease; E11.22 Type 2 diabetes mellitus with diabetic chronic kidney disease; N18.6 End stage renal disease; I50.30 Unspecified diastolic (congestive) heart failure; Z99.2 Dependence on renal dialysis; K21.9 Gastro-esophageal reflux disease without esophagitis; Z79.4 Long term (current) use of insulin; M19.90 Unspecified osteoarthritis, unspecified site; K57.90 Diverticulosis of intestine, part unspecified, without perforation or abscess without bleeding; F32.9 Major depressive disorder, single episode, unspecified; F41.9 Anxiety disorder, unspecified; W01.0XXA Fall on same level from slipping, tripping and stumbling without subsequent striking against object, initial encounter
CPT/HCPCS: 73130; 73562; 99284

== ENCOUNTER 2020-08-30 11:10 | Inpatient (IN) | payer OTHER, SELFPAY ==
[2020-08-30] VITALS (12 sets, daily range): BP systolic 158–196; BP diastolic 52–99; PULSE 71–105; RESP 14–23; TEMP 36.2–36.9; O2SAT 94–100; BMI 21.3
--- NOTE | ~2020-08-30 | CT_ITS ---
EXAMINATION: CT brain wo con DATE: 08/30/2020 13:22 INDICATION: Head injury. Confusion. TECHNIQUE: Computed tomography (CT) of the head was performed without intravenous contrast. The mA wa s adjusted according to patient size. Iterative reconstruction technique was employed. The dose-lengt h product was 1362.00 mGy-cm. COMPARISON: Head CT 12/02/2019 FINDINGS: There are scattered areas of low attenuation in the cerebral white matter. There is no intr acranial hemorrhage, acute infarction, or abnormal intracranial mass lesion. The ventricles are sanjana l in size. There are likely changes of ocular lens replacement surgeries. There is mild mucosal thick ening in the paranasal sinuses. The mastoid air cells are normal. IMPRESSION: 1. Stable moderate nonspecific cerebral white matter disease, which likely represents chronic small v essel ischemic disease. Reviewed, dictated and finalized at location A. ICATION DEVELOPMENT INTERN IMPRESSION: 1. Stable moderate nonspecific cerebral white matter disease, which likely repr esents chronic small vessel ischemic disease.
--- NOTE | ~2020-08-30 | XR_ITS ---
EXAMINATION: XR chest 1V portable DATE: 08/30/2020 13:31 INDICATION: Confusion. TECHNIQUE: A single frontal view of the chest was obtained. COMPARISON: Chest 2 views 12/02/2019, CT abdomen and pelvis 12/12/19 FINDINGS: There is a diffuse interstitial pattern in the lungs, consistent with mild pulmonary edema. No pleural effusion or pneumothorax. Cardiomegaly is noted. Median sternotomy wires and mediastinal surgical clips are seen, likely from prior coronary artery bypass grafting. IMPRESSION: 1. Mild pulmonary edema. 2. Cardiomegaly. Reviewed, dictated and finalized at location A. PROGRAM COORDINATOR
--- NOTE | ~2020-08-30 | XR_ITS ---
EXAMINATION: XR hip BI 2V w AP pelvis DATE: 08/30/2020 13:30 INDICATION: Pelvic pain. TECHNIQUE: An anteroposterior view of the pelvis and 2 views of each hip were obtained. COMPARISON: Right hip radiographs 07/10/2020, CT abdomen and pelvis 12/12/19 FINDINGS: Bone alignment is normal. No fracture. There is a benign bone island in left ilium. There i s moderate osteoarthritis of the hips. IMPRESSION: 1. Moderate osteoarthritis of the hips. Reviewed, dictated and finalized at location A. L PACKAGE AND BUNDLE SORTER CLERK
--- NOTE | ~2020-08-30 | XR_ITS ---
EXAMINATION: XR knee RT min 4V DATE: 08/30/2020 13:31 INDICATION: Right knee pain. TECHNIQUE: 4 views of right knee were obtained. COMPARISON: Right knee radiographs 12/29/19 FINDINGS: Bone alignment is normal. No fracture. There is diffuse osteopenia. There is moderate osteo arthritis of medial and patellofemoral compartments and mild osteoarthritis of lateral compartment. T here is a small knee joint effusion. There are surgical clips in the posteromedial soft tissues. IMPRESSION: 1. Moderate right knee osteoarthritis. 2. Small knee joint effusion. Reviewed, dictated and finalized at location A. OF LIME SLAKER
--- NOTE | 2020-08-30 11:15 | ECG_ITS ---
Measurements Intervals [place] Rate: 77 P: [place]: 0 QRS: -35 QRSD: 93 T: 85 QT: 378 QTc: 428 Interpretive Statements SINUS RHYTHM VENTRICULAR PREMATURE COMPLEXES LEFT AXIS DEVIATION DELAYED PRECORDIAL R/S TRANSITION VOLTAGE CRITERIA FOR LVH BORDERLINE ST-T WAVE ABNORMALITY- HIGH LATERAL LEADS BASELINE ARTIFACT- I, II, III, AVR, AVL, AVF, V1-V6 BORDERLINE ECG Electronically Signed On 08-30-2020 16:58:14 COMMUNICATIONS PROJECT MANAGER by Guille Louis D.O.
[2020-08-30 12:25] LABS: Basophils Percent Auto 0.2 % (0.2-1.2); Eosinophils Percent Auto 0.1 % (0-4.4); Hematocrit 32.9 % (42.0-52.0); Hemoglobin 11.4 g/dL (14.0-18.0); Immature Granulocyte Absolute 0.07 K/mm3 (0.00-0.031); Immature Granulocyte Percent A 0.6 % (0-0.5); Lymphocytes Absolute Auto 0.43 K/mm3 (0.9-3.2); Lymphocytes Percent Auto 3.6 % (18.3-44.2); Mean Corpuscular HGB Conc 34.7 g/dl (32-36); Mean Corpuscular Hemoglobin 32.1 pg (26-34); Mean Corpuscular Volume 92.7 fl (80-100); Mean Platelet Volume 9.8 fl (7.4-10.4); Monocytes Absolute Auto 0.8 K/mm3 (0.1-0.6); Monocytes Percent Auto 6.5 % (2.6-8.5); Neutrophils Absolute Auto 10.6 K/mm3 (1.3-6.7); Platelet Count Result 210 k/mm3 (150-375); Red Blood Count 3.55 M/mm3 (4.6-6.20); Red Cell Distribution Width 12.7 % (11.5-14.5)
[2020-08-30] MEDS: HALOPERIDOL LACTATE 5 MG/ML VIAL 2.5 MG IM (12:33)
[2020-08-30] MEDS: LORazepam INJ (*CRX) 2 MG/ML VIAL 1 MG IV PUSH (12:33)
--- NOTE | 2020-08-30 12:33 | PC.NURSE ---
pt yelling help me from his room. agitated and restless. unable to obtain ct at this time. medicated per order.
[2020-08-30 12:34] LABS: INR 1.1; Prothrombin Time 14.5 Seconds (11.1-14.7)
[2020-08-30 12:35] LABS: Partial Thromboplastin Time 36.4 SECONDS (22.3-36.8)
--- NOTE | 2020-08-30 12:37 | ED.GENADULT ---
HPI - General Adult General Chief complaint: Fall Stated complaint: frequent falls Time Seen by Provider: 08/30/20 11:32 Source: patient and EMS Mode of arrival: EMS Limitations: altered mental status History of Present Illness HPI narrative: This patient is a 79 year old male with history of ESRD on dialysis, hypertension, hyperlipidemia who presents for evaluation of a fall. PAtient states he went outside and he fell. He is unable to state how EMS was called. He is unsure of the time of the fall. He reports pain to his right knee. He states he does not feel well but he is unable to clarify. He is oriented to person and age. He is unable state his location . Related Data Home Medications Medication Instructions Recorded Confirmed carvedilol 12.5 mg tablet 6.25 mg PO Q12H 09/11/19 08/30/20 enalapril maleate 20 mg tablet 20 mg PO BID 09/11/19 08/30/20 gabapentin 300 mg capsule 300 mg PO BID 09/11/19 08/30/20 nifedipine 90 mg tablet,extended 90 mg PO DAILY 09/11/19 08/30/20 release pramipexole 0.125 mg tablet 0.25 mg PO DAILY tablet 09/11/19 08/30/20 sevelamer carbonate 800 mg tablet 2,400 mg PO TID tablet 09/11/19 08/30/20 terazosin 10 mg capsule 10 mg PO DAILY 09/11/19 08/30/20 furosemide 80 mg tablet 160 mg PO DAILY 10/05/19 08/30/20 atorvastatin 20 mg PO HS 12/02/19 08/30/20 acetaminophen 650 mg 650 mg PO Q8H 08/12/20 08/30/20 tablet,extended release aspirin 81 mg tablet,delayed 81 mg PO DAILY 08/12/20 08/30/20 release cholecalciferol (vitamin D3) 125 125 mcg PO DAILY 08/12/20 08/30/20 mcg (5,000 unit) capsule melatonin 5 mg tablet 5 mg PO HS 08/12/20 08/30/20 sennosides 8.6 mg-docusate sodium 1 tab-cap PO DAILY 08/12/20 08/30/20 50 mg tablet Allergies Allergy/AdvReac Type Severity Reaction Status Date / Time cortisone Allergy Unknown Unknown Verified 08/30/20 15:46 [email or web address] Allergy Unknown Unknown Verified 08/30/20 15:46 Review of Systems Review of Systems: ROS unobtainable: Yes unobtainable due to mental status PMFSH Past Medical History Medical History Anemia of chronic disease Coronary artery disease Depression with anxiety Diabetic peripheral neuropathy Diastolic congestive heart failure Most recent echocardiogram showed an ejection fraction of 55 to 60%, diastolic grade 3 dysfunction, mild left atrial enlargement, mild mitral valve regurgitation, moderate pulmonary hypertension, and mild pulmonic regurgitation. Diverticulosis With history of diverticulitis. Dyslipidemia End-stage renal disease on hemodialysis Patient of Dr. Veliz in [place]. He receives dialysis on Tuesday, Tuesday, and Tuesday at [facility] in [place]. Essential hypertension Fracture of unspecified parts of lumbosacral spine and pelvis, initial encounter for closed fracture Gastroesophageal reflux disease Gout Insulin dependent type 2 diabetes mellitus Myocardial infarct Obstructive sleep apnea Intolerant to CPAP. Osteoarthritis Shingles Skin cancer Transient ischemic attack Surgical History Surgical History History of arthroscopy of left knee With meniscus repair. History of cardiac catheterization History of cataract extraction History of repair of right rotator cuff History of three vessel coronary artery bypass 2010. History of tonsillectomy Status post surgical removal of malignant neoplasm of skin Excised from back and upper extremity. Family History Family History Sibling Patient's brother is in good health Mother Family history of malignant neoplasm Patient's mother is Diabetes mellitus Father Congestive heart failure Social History Social History Social History: . 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 He is a former smoker. He is listed as a DNR
[2020-08-30 12:44] LABS: Alanine Aminotransferase 17 U/L (4-50); Albumin Level 3.6 g/dL (3.5-5.1); Alkaline Phosphatase 101 U/L (38-126); Anion Gap 11 mmol/L (8-16); Aspartate Amino Transferase 24 U/L (17-59); Blood Urea Nitrogen 29 mg/dL (9-20); Calcium 8.8 mg/dL (8.4-10.2); Carbon Dioxide 31 mmol/L (22-30); Chloride 90 mmol/L (98-107); Creatine Kinase 128 U/L (55-170); Estimated CRCL calculation 14 ml/min; Estimated Glomerular Filt Rate 16; Glucose 326 mg/dL (75-110); Potassium 3.9 mmol/L (3.4-5.0); Sodium 132 mmol/L (137-145)
[2020-08-30 12:58] LABS: Troponin I 0.132 ng/mL (0.000-0.034)
[2020-08-30] MEDS: FUROSEMIDE INJ 40 MG/4 ML VIAL 20 MG IV PUSH (15:51)
[2020-08-30 15:53] LABS: Troponin I 0.179 ng/mL (0.000-0.034)
--- NOTE | 2020-08-30 16:01 | PC.NURSE ---
UNABLE TO OBTAIN MEDICATION LIST D/T PT CONFUSION AND PHARMACY NOT UPDATING ON COMPUTER.
[2020-08-30] MEDS: HALOPERIDOL LACTATE 5 MG/ML VIAL IM (16:04)
--- NOTE | 2020-08-30 18:13 | PM.IMHP ---
H&P: HPI History of Present Illness Date/Time: 08/30/20 18:13 Chief Complaint: Fall Narrative: Mdoesto Gonzalez is a 79 year old male who lives home alone and has end-stage renal disease and has dialysis. From what we can determine is that he is on dialysis Tuesday. Unable to determine if he went on Tuesday. 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 Patient did not strike his head her loose loss of consciousness at that time. It an abrasion to his left knee and he was still able to ambulate and flex and extend his wrist at that time.. There is a home health nurse note from 08/06/2020 where the patient had stopped taking his amitriptyline because it was making him have hallucinations. The patient wished to be a DNR at that time. Today the patient was outside again and he fell. EMS was called. He was sure the time of the fall and was complaining of right knee pain this time. The patient was confused he was not orientated to place or time he was orientated initially to himself and his age however as time went on he was unable to identify his own name. The patient did receive Haldol and Ativan as well as Lasix in the emergency room. 12.0 H&H 11.4 and 32.9. Creatinine 3.70 glucose is 326. A1c from early this when she was 10.6. Troponin 0.179. 0.132. Patient typically has an elevated troponin although it is mild and he does have a history of end-stage renal disease. Right knee osteoarthritis and small knee joint effusion. Chest x-ray was read as mild pulmonary edema and cardiomegaly. Hip and pelvis x-ray moderate osteoarthritis of the hips. Head Ct stable moderate nonspecific cerebral white matter disease which likely represents chronic small vessel ischemic disease. Review of Systems Review of Systems: ROS unobtainable: Yes unobtainable due to mental status Constitutional: Constitutional: Reports as per HPI and Reports no additional constitutional complaints Eyes: Eyes: Reports as per HPI and Reports no additional eye complaints ENT: Reports system reviewed and no additional complaints, except as documented and Reports Normal hearing present Cardiovascular: Cardiovascular: Reports no additional cardiovascular complaints Respiratory: Respiratory: Reports no additional respiratory complaints and Reports no additional respiratory complaints Gastrointestinal: Gastrointestinal: Reports as per HPI and Reports no additional gastrointestinal complaints Musculoskeletal: Musculoskeletal: Reports no additional musculoskeletal complaints Integumentary/Breasts: Skin/Breast: Reports system reviewed and no additional complaints, except as docu and Reports as per HPI Neurologic: Reports system reviewed and no additional complaints, except as documented, Reports as per HPI and Reports Normal hearing present Psychiatric: Psychiatric: Reports no additional psychiatric complaints and Reports as per HPI Endocrine: Endocrine: Reports no additional endocrine complaints Hematologic/Lymphatic: Hematologic/Lymphatic: Reports no additional hematologic/lymphatic complaints Allergic/Immunologic: Allergic/Immunologic: Reports no additional allergic/immunologic complaints [facility] Past Medical History Medical History (Updated 08/30/20 @ 18:31 by Day Dugan NP) Anemia of chronic disease Coronary artery disease Depression with anxiety Diabetic peripheral neuropathy Diastolic congestive heart failure Most recent echocardiogram showed an ejection fraction of 55 to 60%, diastolic grade 3 dysfunction, mild left atrial enlargement, mild mitral valve regurgitation, moderate pulmonary hypertension, and mild pulmonic regurgitation. Diverticulosis With history of diverticulitis. Dyslipidemia End-stage renal disease on hemodialysis Patient of Dr. Angela
[2020-08-30 18:30] LABS: Troponin I 0.218 ng/mL (0.000-0.034)
--- NOTE | 2020-08-30 20:27 | PC.NURSE ---
This patient, Modesto Gonzalez, was admitted to IMU Room 204-01. Patient/family oriented to hospital policies and general routines including ID bracelet, bed and alarms, visiting hours, pain management, procedures, bathroom and other care routines, personal items, smoking policy, room service/diet, and visiting hours. Information on how to activate the Rapid Response Team has been discussed. Patient/Family are encouraged to report perceived risks to care and to ask questions if they do not understand what they are told or what they should do.
[2020-08-30] MEDS: OLANZapine 10 MG INJ VIAL 5 MG IM (23:04)
[2020-08-30] MEDS: WATER, STERILE FOR INJECTION 10 ML VIAL XX (23:15)
[2020-08-30] MEDS: ATORVASTATIN 20 MG TABLET PO (23:29)
[2020-08-30] MEDS: MELATONIN 5 MG TABLET PO (23:29)
[2020-08-30] MEDS: carvediloL 6.25 MG TABLET PO (23:29)
[2020-08-31] VITALS (18 sets, daily range): BP systolic 113–154; BP diastolic 50–82; PULSE 65–154; RESP 16–22; TEMP 36.5–37.1; O2SAT 95–100
[2020-08-31 00:08] LABS: Glucose Point of Care 273 (65-105)
[2020-08-31 05:38] LABS: Basophils Percent Auto 0.3 % (0.2-1.2); Eosinophils Percent Auto 0.5 % (0-4.4); Hematocrit 31.9 % (42.0-52.0); Hemoglobin 10.6 g/dL (14.0-18.0); Immature Granulocyte Absolute 0.05 K/mm3 (0.00-0.031); Immature Granulocyte Percent A 0.6 % (0-0.5); Lymphocytes Absolute Auto 0.78 K/mm3 (0.9-3.2); Lymphocytes Percent Auto 8.9 % (18.3-44.2); Mean Corpuscular HGB Conc 33.2 g/dl (32-36); Mean Corpuscular Hemoglobin 32.1 pg (26-34); Mean Corpuscular Volume 96.7 fl (80-100); Mean Platelet Volume 10.2 fl (7.4-10.4); Monocytes Absolute Auto 1.3 K/mm3 (0.1-0.6); Monocytes Percent Auto 15.1 % (2.6-8.5); Neutrophils Absolute Auto 6.5 K/mm3 (1.3-6.7); Neutrophils Percent Auto 74.6 % (45.5-73.1); Platelet Count Result 213 k/mm3 (150-375); Red Cell Distribution Width 12.8 % (11.5-14.5); White Blood Count 8.7 K/mm3 (4.5-10.0)
[2020-08-31 06:05] LABS: Alanine Aminotransferase 15 U/L (4-50); Albumin Level 3.4 g/dL (3.5-5.1); Alkaline Phosphatase 87 U/L (38-126); Anion Gap 9 mmol/L (8-16); Aspartate Amino Transferase 24 U/L (17-59); Bilirubin,Total 0.7 mg/dL (0.2-1.3); Blood Urea Nitrogen 44 mg/dL (9-20); Calcium 8.5 mg/dL (8.4-10.2); Carbon Dioxide 36 mmol/L (22-30); Chloride 92 mmol/L (98-107); Estimated CRCL calculation 10 ml/min; Estimated Glomerular Filt Rate 10; Glucose 259 mg/dL (75-110); Potassium 3.9 mmol/L (3.4-5.0); Sodium 137 mmol/L (137-145)
[2020-08-31 06:22] LABS: Troponin I 0.261 ng/mL (0.000-0.034)
[2020-08-31] MEDS: INSULIN ASPART (*BKC) 100 UNITS/ML SUB-Q ×3 (08:27→16:52)
[2020-08-31] MEDS: TERAZOSIN HCL 5 MG CAPSULE 10 MG PO (08:28)
[2020-08-31] MEDS: CHOLECALCIFEROL 1,000 UNITS TABLET 5000 UNITS PO (08:28)
[2020-08-31] MEDS: GABAPENTIN 300 MG CAPSULE PO ×2 (08:29→16:51)
[2020-08-31] MEDS: NIFEdipine 30 MG TAB.ER.24 90 MG PO (08:29)
[2020-08-31] MEDS: SEVELAMER CARBONATE 800 MG TABLET 2400 MG PO ×3 (08:29→16:50)
[2020-08-31] MEDS: ASPIRIN 81 MG ENTERIC TABLET PO (08:29)
[2020-08-31] MEDS: SENNA/DOCUSATE SODIUM TABLET 1 TAB PO (08:30)
[2020-08-31] MEDS: carvediloL 6.25 MG TABLET PO (08:30)
[2020-08-31] MEDS: INSULIN GLARGINE (*BKC) 100 UNITS/ML 30 UNITS SUB-Q (08:30)
[2020-08-31] MEDS: FUROSEMIDE INJ 100 MG/10 ML VIAL 80 MG IV PUSH ×2 (08:30→16:50)
[2020-08-31] MEDS: ENALAPRIL MALEATE 10 MG TABLET 20 MG PO ×2 (08:30→16:52)
[2020-08-31] MEDS: PRAMIPEXOLE 0.25 MG TABLET PO (08:31)
[2020-08-31 08:40] LABS: Glucose Point of Care 256 (65-105)
--- NOTE | 2020-08-31 09:55 | PCOTNOTE ---
attempted OT eval 9:40- nursing stated to hold off due to pt being in pain and having heart rate issues.
[2020-08-31 12:26] LABS: Glucose Point of Care 278 (65-105)
--- NOTE | 2020-08-31 13:16 | PCOTNOTE ---
Attempted OT eval second time- nursing said hold for today due to pt having continued HR issues/A fib.
--- NOTE | 2020-08-31 13:26 | PM.CNNEP ---
Assessment and Plan Assessment and plan (1) End stage renal disease: Code(s): N18.6 - End stage renal disease Status: Chronic Assessment and Plan: normally does Tue/Tue/Tue dialysis schedule however, he was //Tue schedule at [facility] for apparently testing positive for COVID-19 - last HD treatment was on Tuesday (08/30/20) with holiday schedule, will probably plan HD tomorrow -- will try to clarify with dialysis center follow electrolytes, volume status, and clearance (2) Frequent falls: Code(s): R29.6 - Repeated falls Status: Acute Assessment and Plan: etiology? noted numerous falls as per Home Health PT/OT evaluation may need placement (3) Person under investigation for COVID-19: Code(s): Z20.828 - Contact with and (suspected) exposure to other viral communicable diseases Status: Acute Assessment and Plan: apparently positive and hence why he is getting his HD treatments at another dialysis center repeat testing pending (4) Altered mental status: Code(s): R41.82 - Altered mental status, unspecified Status: Acute Assessment and Plan: etiology? (5) Essential hypertension: Code(s): I10 - Essential (primary) hypertension Status: Chronic Assessment and Plan: reasonable control at this time continue home medications follow trend of hemodynamics (6) Anemia: Code(s): D64.9 - Anemia, unspecified Status: Acute Assessment and Plan: in range for ESRD Epogen with HD follow trend of H/H (7) Diabetes: Code(s): E11.9 - Type 2 diabetes mellitus without complications Status: Chronic Assessment and Plan: follows with Endocrinology follow accuchecks on Lantus and SSI Will continue to follow. History of Present Illness Reason for Consult Consult date: 08/31/20 Reason for consult: end stage renal disease Chief Complaint Chief complaint: Altered mental status, frequent falls, History of Present Illness Narrative: A great deal of the information I have obtained is from review of the electronic medical record as well as discussion with his outpatient dialysis center as the patient is somewhat confusing cannot provide me with much history that led to his presentation to the ER. The patient is a 79-year-old male with a past medical history as outlined below who presented to [facility] following a fall. This is not the 1st time this has occurred is apparently several days ago he presented to [facility] ER following another fall in early sustained minor injuries at that time. He was subsequently discharged home following evaluation. This time apparently he tripped and fell when he was trying to check his mail.There is no apparent loss of consciousness, chest pain, shortness of breath, or any other symptoms prior to or after the fall. Is not entirely clear who called EMS which led to his presentation to the ER. Workup and evaluation emergency demonstrated labs consistent with his known history of end-stage renal disease along with a mildly elevated troponin. Further concern was the fact that he seemed to be somewhat altered in terms of his mental status. He could not give history of where he was and what led to his presentation to the ER but he was aware who he was was and the time. due to his recurrent falls, mildly elevated troponin, and altered mental status, he was admitted the hospital for further evaluation and therapy. Renal consultation was requested due to his end-stage renal disease. The patient is somewhat familiar to me as I have taking care of him before. He normally dialyzes on a Tuesday schedule at [facility] under the care of Dr. Bakari Mills. However, I was informed by his outpatient dialysis unit that he was COVID-19 positive and has been dialyzes on a Tuesday schedu
--- NOTE | 2020-08-31 14:19 | PM.CNCAR ---
Assessment and Plan Assessment and plan (1) New onset atrial fibrillation: Code(s): I48.91 - Unspecified atrial fibrillation Status: Acute Assessment and Plan: Will start amiodarone 150 mg IV x1 and then standard drip per protocol. He is not an anticoagulation candidate due to frequent falls. 2D echocardiogram Doppler will be ordered and reviewed. Will repeat EKG tomorrow. Discontinue further Haldol. (2) Elevated troponin: Code(s): R77.8 - Other specified abnormalities of plasma proteins Status: Acute Assessment and Plan: This is not related to ACS. Discontinue further troponins. These are not needed unless there is a change in clinical status (3) Frequent falls: Code(s): R29.6 - Repeated falls Status: Acute (4) End stage renal disease: Code(s): N18.6 - End stage renal disease Status: Chronic Assessment and Plan: Per nephrology. Chest x-ray appears wet. I agree with diuretics as much as possible and more volume removal with dialysis. (5) CAD (coronary artery disease): Code(s): I25.10 - Atherosclerotic heart disease of [place] coronary artery without angina pectoris Status: Acute Assessment and Plan: Unknown details. Smoking cessation is advised History of Present Illness History of Present Illness Consult date/time: 08/31/20 14:19 Requesting physician: Jorge A Varghese MD Consult reason: atrial fibrillation Reason For Visit: Altered mental status, frequent falls, Narrative: Date of service 08/31/2020 Reason consultation atrial fibrillation History patient is a 79-year-old male who dialyzes on Tuesday. He came to emergency room because of a fall. Reportedly he is COVID positive also has an outpatient although I do not have records of this and currently his COVID pending. 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 He tripped and fell. There was no loss of consciousness. For completely unknown reasons a troponin was ordered which was minimally positive as expected given his end-stage renal disease. He was then admitted to IMU. While in IMU he would into atrial fibrillation with rapid ventricular response thus prompting Cardiology consultation. Patient denies any chest pain, shortness of breath, syncope, presyncope, paroxysmal nocturnal dyspnea, orthopnea, edema. He does describe palpitations which started today. He does not have palpitations at home he states. Review of Systems Review of Systems: All systems reviewed & are unremarkable except as noted in HPI and below Constitutional: Constitutional: Reports weakness Eyes: Eyes: Denies blurry vision ENT: Reports Normal hearing present Cardiovascular: Cardiovascular: Denies chest pain and Reports palpitations Respiratory: Respiratory: Denies dyspnea Gastrointestinal: Gastrointestinal: Denies abdominal pain Genitourinary: Genitourinary: Denies dysuria Musculoskeletal: Musculoskeletal: Reports arthralgias and Reports neck pain Integumentary/Breasts: Skin/Breast: Denies dry skin Neurologic: Denies headache(s) Psychiatric: Psychiatric: Denies anxiety and Denies confusion Endocrine: Endocrine: Denies fatigue and Denies flushing Hematologic/Lymphatic: Hematologic/Lymphatic: Denies easy bleeding Allergic/Immunologic: Allergic/Immunologic: Denies GI upset with certain foods PMFSH Past Medical History Medical History Anemia of chronic disease Coronary artery disease Depression with anxiety Diabetic peripheral neuropathy Diastolic congestive heart failure Most recent echocardiogram showed an ejection fraction of 55 to 60%, diastolic grade 3 dysfunction, mild left atrial enlargement, mild mitral valve regurgitation, moderate pulmonary hypertension, and mild pulmonic regurgitation. Diverticulosis With history of diverticulitis.
[2020-08-31] MEDS: AMIODARONE 150 MG/D5W 100 ML 150 MG/100 ML BAG 600 MG IV CONT (14:37)
[2020-08-31] MEDS: AMIODARONE 360 MG/D5W 200 ML 360 MG/200 ML BAG 33.33 MG IV CONT (14:38)
--- NOTE | 2020-08-31 16:21 | PM.IMPN ---
Progress Note: A&P Assessment and Plan (1) Elevated troponin: Code(s): R77.8 - Other specified abnormalities of plasma proteins Status: Acute Assessment and Plan: Has a mildly elevated troponin. And he has been having multiple falls. The patient has no complaints of any chest pain any only has mildly elevated troponins. Will check another 1 in the a.m.. The patient's code status is DNR. He is on a daily aspirin. 08/31/20 16:21 Patient is 79-year-old male with history of end-stage renal disease on hemodialysis Tuesday,Tuesday and Tuesday patient was brought to the emergency depart after he had fell in his driveway on his way returning from collecting male, patient denies any associated symptoms chest pain palpitation or dizziness prior to fall apparently patient tripped and landed on his knee, bowel in the hospital patient was found to have atrial fibrillation with RVR patient seen by hog raiser patient was given bolus of amiodarone started the patient on drip, cardiology does not recommend to anticoagulate the patient is he has a history falling and risk of bleeding, patient is also found to elevated tropes patient is seen by Cardiology and suspect most likely secondary to chronic kidney disease and stress from fall, likely acute coronary syndrome, there is a concern the patient may have COVID-19 and being isolated and tested will follow, patient is clinically stable at the present and denies any complaint of chest pain shortness of breath palpitation fever or chills. (2) Frequent falls: Code(s): R29.6 - Repeated falls Status: Acute Assessment and Plan: We have PT and OT evaluation. fitness and wellness coordinator for placement. The patient lives home alone he does have a person that comes and helps some but the patient has had multiple falls and his home and patient can no longer live in his home. Please see the home health notes that the patient has fallen several times. The patient has fallen at least 2 times the last 3 days. He just can no longer live at home. At times his blood sugar does drop low but it is typically elevated his last A1c was 10.1. (3) Essential hypertension: Code(s): I10 - Essential (primary) hypertension Status: Chronic Assessment and Plan: Continue with Coreg and enalapril (4) Insulin dependent type 2 diabetes mellitus: Code(s): E11.9 - Type 2 diabetes mellitus without complications; Z79.4 - extractor operator (current) use of insulin Status: Acute Assessment and Plan: His last A1c was 10.1. Accu-Cheks every 6 hours. Sliding scale early 6 hours. Typically his blood sugars do not appear to be controlled. Patient is on gabapentin for neuropathy. The patient is on high-dose sliding scale at this time. Continue with Lantus. (5) End-stage renal disease on hemodialysis: Code(s): N18.6 - End stage renal disease; Z99.2 - Dependence on renal dialysis Status: Acute Assessment and Plan: I did consult Dr. Moyer. The patient looks like he is on dialysis on Tuesday and Tuesday we are not sure when the patient had dialysis last but he does go to [facility] (6) Profound anemia: Qualifiers: Anemia type: iron deficiency Iron deficiency anemia type: chronic blood loss Qualified Code(s): D50.0 - Iron deficiency anemia secondary to blood loss (chronic) Code(s): D64.9 - Anemia, unspecified Status: Acute Assessment and Plan: Due to end-stage renal disease. Continue to monitor and he is above baseline at this time. (7) (HFpEF) heart failure with preserved ejection fraction: Code(s): I50.30 - Unspecified diastolic (congestive) heart failure Status: Acute Assessment and Plan: Continue with his Lasix I did change it to IV instead of p.o. continue with Coreg (8) HTN (hypertension): Code(s): I10 - Essential (primary) hypertension Status: Acute Assessment and Plan: Continue with Lasix
[2020-08-31 17:10] LABS: Glucose Point of Care 278 (65-105)
[2020-08-31] MEDS: AMIODARONE 360 MG/D5W 200 ML 360 MG/200 ML BAG 16.67 MG IV CONT (20:08)
--- NOTE | 2020-08-31 20:12 | PC.NURSE ---
Pts full dinner tray is untouched infront of him. He is unable to lift head no matter how much we pull him up. He attempted to take pills and choked.
[2020-08-31 21:03] LABS: Glucose Point of Care 229 (65-105)
[2020-09-01] VITALS (23 sets, daily range): BP systolic 84–112; BP diastolic 46–67; PULSE 61–140; RESP 14–24; TEMP 35.9–36.5; O2SAT 95–100; BMI 10.0
--- NOTE | 2020-09-01 08:00 | ECG_ITS ---
Measurements Intervals [place] Rate: 133 P: -19 PA: 197 QRS: -33 QRSD: 106 T: 148 QT: 330 QTc: 492 Interpretive Statements SUPRAVENTRICULAR TACHYCARDIA, CONSIDER ECTOPIC ATRIAL TACHYCARDIA VENTRICULAR PREMATURE COMPLEX LEFT AXIS DEVIATION LEFT VENTRICULAR HYPERTROPHY AND ST-T CHANGE BORDERLINE R WAVE PROGRESSION, ANTERIOR LEADS BASELINE WANDER- V4-V6 ABNORMAL ECG Electronically Signed On 09-01-2020 15:20:22 CHILD CARE COOK by Guille Louis D.O.
[2020-09-01] MEDS: AMIODARONE 360 MG/D5W 200 ML 360 MG/200 ML BAG 16.67 MG IV CONT ×2 (08:34→20:40)
[2020-09-01] MEDS: INSULIN ASPART (*BKC) 100 UNITS/ML SUB-Q ×2 (08:51→12:41)
[2020-09-01] MEDS: FUROSEMIDE INJ 100 MG/10 ML VIAL 80 MG IV PUSH (08:52)
[2020-09-01 09:03] LABS: Glucose Point of Care 207 (65-105)
[2020-09-01 10:13] LABS: Hematocrit 27.5 % (42.0-52.0); Hemoglobin 8.9 g/dL (14.0-18.0); Mean Corpuscular HGB Conc 32.4 g/dl (32-36); Mean Corpuscular Hemoglobin 31.6 pg (26-34); Mean Corpuscular Volume 97.5 fl (80-100); Mean Platelet Volume 10.8 fl (7.4-10.4); Platelet Count Result 202 k/mm3 (150-375); Red Blood Count 2.82 M/mm3 (4.6-6.20); Red Cell Distribution Width 12.9 % (11.5-14.5); White Blood Count 13.7 K/mm3 (4.5-10.0)
[2020-09-01] MEDS: INSULIN GLARGINE (*BKC) 100 UNITS/ML 30 UNITS SUB-Q (10:20)
[2020-09-01 10:32] LABS: Anion Gap 15 mmol/L (8-16); Blood Urea Nitrogen 63 mg/dL (9-20); Calcium 8.5 mg/dL (8.4-10.2); Carbon Dioxide 30 mmol/L (22-30); Chloride 88 mmol/L (98-107); Estimated CRCL calculation 8 ml/min; Estimated Glomerular Filt Rate 7; Glucose 220 mg/dL (75-110); Magnesium 2.2 mg/dL (1.6-2.3); Potassium 4.4 mmol/L (3.4-5.0); Sodium 133 mmol/L (137-145)
--- NOTE | 2020-09-01 12:45 | PC.NURSE ---
Shannan Mayfield REMOTE SENSING SURVEYOR at bedside. Reported patient's low blood pressure to her. Order for 250ml bolus.
[2020-09-01] MEDS: SODIUM CHLORIDE 0.9% IV 250 ML IV CONT (12:50)
--- NOTE | 2020-09-01 12:52 | PM.PNCARD ---
Progress Note: A&P Assessment and Plan (1) New onset atrial fibrillation: Code(s): I48.91 - Unspecified atrial fibrillation Status: Acute Assessment and Plan: Amiodarone infusing. Heart rate still in the 130s. This is most likely flutter. Would like to given additional bolus however he is at this time hypotensive. He is not an anticoagulation candidate due to frequent falls. 2D echocardiogram Doppler ordered and reviewed. (2) Elevated troponin: Code(s): R77.8 - Other specified abnormalities of plasma proteins Status: Acute Assessment and Plan: This is not related to ACS. (3) Frequent falls: Code(s): R29.6 - Repeated falls Status: Acute Assessment and Plan: Frequent falls. Possibly related to orthostatic hypotension? (4) End stage renal disease: Code(s): N18.6 - End stage renal disease Status: Chronic Assessment and Plan: Per nephrology. Received furosemide this morning. Now hypotensive. Very little urine output. (5) CAD (coronary artery disease): Qualifiers: Coronary Disease-Associated Artery/Lesion type: [place] artery [place] vs. transplanted heart: [place] heart Associated angina: without angina Qualified Code(s): I25.10 - Atherosclerotic heart disease of [place] coronary artery without angina pectoris Code(s): I25.10 - Atherosclerotic heart disease of [place] coronary artery without angina pectoris Status: Acute Assessment and Plan: Followed with [facility] 08/22: FOSTER to LAD. Left radial artery to PDA. Saphenous vein graft to obtuse marginal. Denied chest discomfort. (6) Hypotension: Qualifiers: Hypotension type: unspecified hypotension type Qualified Code(s): I95.9 - Hypotension, unspecified Code(s): I95.9 - Hypotension, unspecified Status: Acute Assessment and Plan: Did not receive his carvedilol or nifedipine this morning due to issues with swallowing. Did receive furosemide 80 mg IVP. Will give 250 cc fluid bolus and see how his blood pressure responds. Additional Plan Plan discussed Dr. Valdez [id number] 09/01/2020 Subjective Date/time seen: 09/01/20 12:52 Interval history: Follow-up for: Atrial fibrillation with rapid ventricular response, elevated troponin, frequent falls, end-stage renal disease on hemodialysis Date of service: 09/01/2020 Subjective: Denied chest pain. Has discomfort in the middle of his back. Denied shortness of breath. No palpitations. Lightheaded when sitting up. Review of Systems Constitutional: Constitutional: Denies fatigue, Denies headache(s) and Reports weakness Eyes: Eyes: Denies blurry vision ENT: Reports Normal hearing present and Denies headache(s) Cardiovascular: Cardiovascular: Denies chest pain, Reports lightheadedness, Reports palpitations and Denies dyspnea Respiratory: Respiratory: Denies dyspnea Gastrointestinal: Gastrointestinal: Denies abdominal pain Genitourinary: Genitourinary: Denies dysuria Musculoskeletal: Musculoskeletal: Reports back pain and Reports arthralgias Integumentary/Breasts: Skin/Breast: Denies dry skin Neurologic: Reports Normal hearing present, Denies confusion, Denies headache(s) and Reports weakness Psychiatric: Psychiatric: Denies anxiety and Denies confusion Endocrine: Endocrine: Denies fatigue, Denies flushing and Reports palpitations Hematologic/Lymphatic: Hematologic/Lymphatic: Denies easy bleeding Allergic/Immunologic: Allergic/Immunologic: Denies GI upset with certain foods Exam Narrative: Exam Narrative: Drowsy. Pale.. Answers questions appropriately. Const: General: comfortable and no acute distress; No confusion Orientation/consciousness: No confusion HENMT: General nose exam: Normal nare
[2020-09-01 13:10] LABS: Glucose Point of Care 222 (65-105)
[2020-09-01] MEDS: SODIUM CHLORIDE 0.9% IV 250 ML 999 ML IV CONT (13:54)
--- NOTE | 2020-09-01 14:52 | PCPTNOTE ---
PT held this afternoon per RN due to low BP. PT will continue to follow per plan of care.
[2020-09-01 16:50] LABS: Glucose Point of Care 166 (65-105)
[2020-09-01 16:54] LABS: SARS-CoV-2 RNA PCR Positive
--- NOTE | 2020-09-01 17:14 | PM.IMPN ---
Progress Note: A&P Assessment and Plan (1) Elevated troponin: Code(s): R77.8 - Other specified abnormalities of plasma proteins Status: Acute Assessment and Plan: Has a mildly elevated troponin. And he has been having multiple falls. The patient has no complaints of any chest pain any only has mildly elevated troponins. Will check another 1 in the a.m.. The patient's code status is DNR. He is on a daily aspirin. 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, patient denied any associated symptoms of chest pain palpitation or dizziness prior to fall, apparently patient tripped and landed on his knee, brought to the hospital, patient was found to have atrial fibrillation with RVR patient was seen by manager market development patient was given bolus of amiodarone started the patient on drip, cardiology does not recommend to anticoagulate the patient as he has a history falling and risk of bleeding, today patient HR in 130 but he is hypotensive seen by manager market development and unable to give amiodoran, patient is also found to elevated tropes patient is seen by Cardiology and suspect most likely secondary to chronic kidney disease and stress from fall, unlikely acute coronary syndrome, there is a concern the patient may have COVID-19 and being isolated and tested will follow, today discussed with the patient he does not want to be DNR and will switch him over to full code, patient is clinically stable at the present and denies any complaint of chest pain shortness of breath palpitation fever or chills. (2) Frequent falls: Code(s): R29.6 - Repeated falls Status: Acute Assessment and Plan: We have PT and OT evaluation. coordinator cardiopulmonary services for placement. The patient lives home alone he does have a person that comes and helps some but the patient has had multiple falls and his home and patient can no longer live in his home. Please see the home health notes that the patient has fallen several times. The patient has fallen at least 2 times the last 3 days. He just can no longer live at home. At times his blood sugar does drop low but it is typically elevated his last A1c was 10.1. 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 Accu-Cheks every 6 hours. Sliding scale early 6 hours. Typically his blood sugars do not appear to be controlled. Patient is on gabapentin for neuropathy. The patient is on high-dose sliding scale at this time. Continue with Lantus. (5) End-stage renal disease on hemodialysis: Code(s): N18.6 - End stage renal disease; Z99.2 - Dependence on renal dialysis Status: Acute Assessment and Plan: I did consult Dr. Moyer. The patient looks like he is on dialysis on Tuesday and Tuesday we are not sure when the patient had dialysis last but he does go to [facility] (6) Profound anemia: Qualifiers: Anemia type: iron deficiency Iron deficiency anemia type: chronic blood loss Qualified Code(s): D50.0 - Iron deficiency anemia secondary to blood loss (chronic) Code(s): D64.9 - Anemia, unspecified Status: Acute Assessment and Plan: Due to end-stage renal disease. Continue to monitor and he is above baseline at this time. (7) (HFpEF) heart failure with preserved ejection fraction: Code(s): I50.30 - Unspecified diastolic (congestive) heart failure Status: Acute Assessment and Plan: Continue with his La
--- NOTE | 2020-09-01 18:17 | PM.PNNEP ---
Progress Note: A&P Assessment and Plan (1) End stage renal disease: Code(s): N18.6 - End stage renal disease Status: Chronic Assessment and Plan: normally does Tue/Tue/Tue dialysis schedule however, he was //Sat schedule at [facility] for apparently testing positive for COVID-19 - last HD treatment was on Tuesday (08/30/20) plan HD tomorrow follow electrolytes, volume status, and clearance (2) Frequent falls: Code(s): R29.6 - Repeated falls Status: Acute Assessment and Plan: etiology? noted numerous falls as per Home Health PT/OT evaluation may need placement (3) Person under investigation for COVID-19: Code(s): Z20.828 - Contact with and (suspected) exposure to other viral communicable diseases Status: Acute Assessment and Plan: apparently positive and hence why he is getting his HD treatments at another dialysis center repeat testing positive as well continue supportive therapy (4) Essential hypertension: Code(s): I10 - Essential (primary) hypertension Status: Chronic Assessment and Plan: issues with hypotension noted continue home medications with parameters follow trend of hemodynamics (5) Anemia: Code(s): D64.9 - Anemia, unspecified Status: Acute Assessment and Plan: in range for ESRD Epogen with HD follow trend of H/H (6) Diabetes: Code(s): E11.9 - Type 2 diabetes mellitus without complications Status: Chronic Assessment and Plan: follows with Endocrinology follow accuchecks on Lantus and SSI Will continue to follow. Subjective Date/time seen: 09/01/20 18:17 Patient appears more awake and alert at the time of my visit -- no acute complaints but has been having issues and problems with hypotension earlier today; no complaints of chest pain or shortness of breath. Exam Narrative: Exam Narrative: General: WD/WN male in NAD Heart: IRRR, normal S1 and S2; no rub Lungs: decreased at bases Abdomen: soft, nontender, nondistended, positive bowel sounds Extremities: no cyanosis or clubbing; no edema Skin: warm and dry Objective Data Vital Signs Vital Signs: Vital Signs Temp Pulse Resp BP Pulse Ox 09/01/20 16:00 36.1 C L 134 H 14 87/49 L 100 09/01/20 15:48 90/52 L 09/01/20 14:31 86/56 L 09/01/20 14:00 131 H 09/01/20 13:30 86/52 L 09/01/20 12:00 35.9 C L 132 H 24 H 84/46 L 100 09/01/20 10:00 133 H 09/01/20 08:40 99 09/01/20 08:34 132 H 09/01/20 08:08 132 H 09/01/20 08:00 130 H 09/01/20 07:14 36.2 C L 131 H 22 H 112/58 L 99 09/01/20 06:00 129 H 09/01/20 04:00 132 H 100 09/01/20 03:55 36.5 C 133 H 18 109/67 95 09/01/20 02:00 61 09/01/20 00:00 133 H 97 08/31/20 23:44 36.9 C 93 18 113/78 100 08/31/20 22:00 130 H 08/31/20 21:35 128 H 08/31/20 20:08 133 H 08/31/20 20:00 37.0 C 130 H 18 116/82 95 Intake/Output Intake/Output: Intake & Output 08/29/20 08/30/20 08/31/20 09/01/20 23:59 23:59 23:59 23:59 Intake Total 680 700 Output Total 0 0 Balance 680 700 Meds/Results Medications: Active Medications Generic Name Dose Route Start Last Admin Trade Name Freq PRN Reason Stop Dose Admin Aspirin 81 mg 08/31/20 09:00 09/01/20 08:55 Aspirin 81 Mg Enteric Tablet PO Not Given DAILY DIOGENES Atorvastatin Calcium 20 mg 08/30/20 22:50 08/31/20 21:34 Atorvastatin 20 Mg Tablet PO Not Given HS DIOGENES Carvedilol 12.5 mg 08/31/20 21:00 09/01/20 08:55 Carvedilol 12.5 Mg Tablet PO Not Given Q12HR DIOGENES Dextrose 12.5 gm 08/30/20 18:50 Dextrose 50% 25 Gm/50 Ml Syringe IV PUSH PRN PRN Hypoglycemia Protocol Enalapril Maleate 20 mg 08/31/20 09:00 09/01/20 16:47 Enalapril Maleate 10 Mg Tablet PO Not Given BID DIOGENES Furosemide 80 mg
[2020-09-01 21:04] LABS: Glucose Point of Care 137 (65-105)
[2020-09-02] VITALS (36 sets, daily range): BP systolic 74–120; BP diastolic 36–95; PULSE 67–164; RESP 18–24; TEMP 35–36.9; O2SAT 91–100
[2020-09-02 04:56] LABS: Hematocrit 27.5 % (42.0-52.0); Mean Corpuscular HGB Conc 32.7 g/dl (32-36); Mean Corpuscular Hemoglobin 31.7 pg (26-34); Mean Corpuscular Volume 96.8 fl (80-100); Mean Platelet Volume 10.6 fl (7.4-10.4); Platelet Count Result 234 k/mm3 (150-375); Red Blood Count 2.84 M/mm3 (4.6-6.20); White Blood Count 14.8 K/mm3 (4.5-10.0)
[2020-09-02 05:43] LABS: Anion Gap 17 mmol/L (8-16); Blood Urea Nitrogen 74 mg/dL (9-20); Calcium 8.3 mg/dL (8.4-10.2); Carbon Dioxide 28 mmol/L (22-30); Chloride 88 mmol/L (98-107); Estimated CRCL calculation 8 ml/min; Estimated Glomerular Filt Rate 6; Glucose 98 mg/dL (75-110); Potassium 4.6 mmol/L (3.4-5.0); Sodium 133 mmol/L (137-145)
[2020-09-02] MEDS: SEVELAMER CARBONATE 800 MG TABLET 2400 MG PO ×2 (07:57→12:42)
[2020-09-02] MEDS: ASPIRIN 81 MG ENTERIC TABLET PO (07:58)
[2020-09-02] MEDS: GABAPENTIN 300 MG CAPSULE PO (07:58)
[2020-09-02] MEDS: CHOLECALCIFEROL 1,000 UNITS TABLET 5000 UNITS PO (07:59)
[2020-09-02] MEDS: PRAMIPEXOLE 0.25 MG TABLET PO (07:59)
[2020-09-02] MEDS: SENNA/DOCUSATE SODIUM TABLET 1 TAB PO (08:00)
[2020-09-02] MEDS: AMIODARONE 360 MG/D5W 200 ML 360 MG/200 ML BAG 16.67 MG IV CONT ×2 (08:03→20:16)
[2020-09-02 08:06] LABS: Glucose Point of Care 78 (65-105)
--- NOTE | 2020-09-02 09:13 | PC.NURSE ---
Patient to dialysis via bed. Report given to NATASHA Hardy.
[2020-09-02] MEDS: ALBUMIN HUMAN 25% 12.5 GM/50ML 50 ML IVPB ×2 (09:50→11:06)
[2020-09-02] MEDS: EPOETIN ALFA-EPBX 10,000 UNITS/ML VIAL 10000 UNITS IV PUSH (11:40)
--- NOTE | 2020-09-02 11:42 | PCPTNOTE ---
The PT treatment was unable to be completed today per RN verbal hold. Will continue per Plan of Care frequency and duration.
--- NOTE | 2020-09-02 12:23 | P.PNNP_ITS ---
Progress Note: A&P Assessment and Plan (1) End stage renal disease: Code(s): N18.6 - End stage renal disease Status: Chronic Assessment and Plan: * normally does Tue/Tue/Tue dialysis schedule * however, he was //Sat schedule at [facility] for apparently testing positive for COVID-19 - last HD treatment was on Tuesday (08/30/20) * HD today but treatment ended early due to hemodynamic instability * follow electrolytes, volume status, and clearance (2) Frequent falls: Code(s): R29.6 - Repeated falls Status: Acute Assessment and Plan: * etiology? - due to orthostatic hypotension? * noted numerous falls as per Home Health * PT/OT evaluation * may need placement (3) Person under investigation for COVID-19: Code(s): Z20.828 - Contact with and (suspected) exposure to other viral communicable diseases Status: Acute Assessment and Plan: * apparently positive and hence why he is getting his HD treatments at another dialysis center * repeat testing positive as well * continue supportive therapy (4) Atrial fibrillation: Code(s): I48.91 - Unspecified atrial fibrillation Status: Acute Assessment and Plan: * as noted today * Cardiology following * not a candidate for anticoagulation (due to falls) * on amiodarone without much improvement * attempt IV digoxin per discussion with Cardiology (5) Essential hypertension: Code(s): I10 - Essential (primary) hypertension Status: Chronic Assessment and Plan: * issues with hypotension noted * continue home medications with parameters * follow trend of hemodynamics (6) Anemia: Code(s): D64.9 - Anemia, unspecified Status: Acute Assessment and Plan: * in range for ESRD * Epogen with HD * follow trend of H/H (7) Diabetes: Code(s): E11.9 - Type 2 diabetes mellitus without complications Status: Chronic Assessment and Plan: * follows with Endocrinology * follow accuchecks * on Lantus and SSI Will continue to follow. Subjective Date/time seen: 09/02/20 12:23 Seen on dialysis and not tolerating treatment well (seen on HD at ~ 11:50AM) - systolic BP in the 80s and heart in the 160s (atrial fibrillation); patient is not feeling well so dialysis treatment aborted/terminated. Exam Narrative: Exam Narrative: General: WD/WN male in NAD Heart: IRRR, tachycardic, normal S1 and S2; no rub Lungs: decreased at bases Abdomen: soft, nontender, nondistended, positive bowel sounds Extremities: no cyanosis or clubbing; no edema Skin: warm and intact Objective Data Vital Signs Vital Signs: Vital Signs Temp Pulse Resp BP Pulse Ox 09/02/20 11:57 36.6 C 161 H 20 106/52 L 09/02/20 11:52 161 H 95/46 L 09/02/20 11:45 164 H 85/43 L 09/02/20 11:30 159 H 92/54 L 09/02/20 11:15 141 H 106/55 L 09/02/20 11:00 141 H 74/36 L 09/02/20 10:45 141 H 85/47 L 09/02/20 10:30 141 H 96/46 L 09/02/20 10:15 141 H 105/52 L 09/02/20 10:00 140 H 83/48 L 09/02/20 09:45 141 H 83/48 L 09/02/20 09:35 140 H 94/47 L 09/02/20 09:31 141 H 77/40 L 09/02/20 09:20 36.6 C 141 H 18 93/47 L 09/02/20 08:03 134 H 09/02/20 08:00 36.6 C 141 H 20 94/54 L 91
--- NOTE | 2020-09-02 12:23 | PM.PNNEP ---
Progress Note: A&P Assessment and Plan (1) End stage renal disease: Code(s): N18.6 - End stage renal disease Status: Chronic Assessment and Plan: normally does Tue/Tue/Tue dialysis schedule however, he was //Sat schedule at [facility] for apparently testing positive for COVID-19 - last HD treatment was on Tuesday (08/30/20) HD today but treatment ended early due to hemodynamic instability follow electrolytes, volume status, and clearance (2) Frequent falls: Code(s): R29.6 - Repeated falls Status: Acute Assessment and Plan: etiology? - due to orthostatic hypotension? noted numerous falls as per Home Health PT/OT evaluation may need placement (3) Person under investigation for COVID-19: Code(s): Z20.828 - Contact with and (suspected) exposure to other viral communicable diseases Status: Acute Assessment and Plan: apparently positive and hence why he is getting his HD treatments at another dialysis center repeat testing positive as well continue supportive therapy (4) Atrial fibrillation: Code(s): I48.91 - Unspecified atrial fibrillation Status: Acute Assessment and Plan: as noted today Cardiology following not a candidate for anticoagulation (due to falls) on amiodarone without much improvement attempt IV digoxin per discussion with Cardiology (5) Essential hypertension: Code(s): I10 - Essential (primary) hypertension Status: Chronic Assessment and Plan: issues with hypotension noted continue home medications with parameters follow trend of hemodynamics (6) Anemia: Code(s): D64.9 - Anemia, unspecified Status: Acute Assessment and Plan: in range for ESRD Epogen with HD follow trend of H/H (7) Diabetes: Code(s): E11.9 - Type 2 diabetes mellitus without complications Status: Chronic Assessment and Plan: follows with Endocrinology follow accuchecks on Lantus and SSI Will continue to follow. Subjective Date/time seen: 09/02/20 12:23 Seen on dialysis and not tolerating treatment well (seen on HD at ~ 11:50AM) - systolic BP in the 80s and heart in the 160s (atrial fibrillation); patient is not feeling well so dialysis treatment aborted/terminated. Exam Narrative: Exam Narrative: General: WD/WN male in NAD Heart: IRRR, tachycardic, normal S1 and S2; no rub Lungs: decreased at bases Abdomen: soft, nontender, nondistended, positive bowel sounds Extremities: no cyanosis or clubbing; no edema Skin: warm and intact Objective Data Vital Signs Vital Signs: Vital Signs Temp Pulse Resp BP Pulse Ox 09/02/20 11:57 36.6 C 161 H 20 106/52 L 09/02/20 11:52 161 H 95/46 L 09/02/20 11:45 164 H 85/43 L 09/02/20 11:30 159 H 92/54 L 09/02/20 11:15 141 H 106/55 L 09/02/20 11:00 141 H 74/36 L 09/02/20 10:45 141 H 85/47 L 09/02/20 10:30 141 H 96/46 L 09/02/20 10:15 141 H 105/52 L 09/02/20 10:00 140 H 83/48 L 09/02/20 09:45 141 H 83/48 L 09/02/20 09:35 140 H 94/47 L 09/02/20 09:31 141 H 77/40 L 09/02/20 09:20 36.6 C 141 H 18 93/47 L 09/02/20 08:03 134 H 09/02/20 08:00 36.6 C 141 H 20 94/54 L 91 09/02/20 06:00 133 H 09/02/20 04:00 36.2 C L 133 H 20 102/56 L 98 09/02/20 02:00 140 H 09/02/20 00:00 36.5 C 140 H 18 99/56 L 99 09/01/20 23:49 140 H 18 100 09/01/20 22:00 140 H 09/01/20 20:40 140 H 09/01/20 20:00 138 H 18 100 09/01/20 19:57 36.4 C 138 H 18 99/52 L 100 09/01/20 18:00 136 H 09/01/20 16:00 36.1 C L 134 H 14 87/49 L 100 09/01/20 15:48 90/52 L 09/01/20 14:31 86/56 L 09/01/20 14:00 131 H 09/01/20 13:30 86/52 L Intake/Output Intake/Output: Intake & Output 12/19/08/31/20 09/01/20 09/02/20 23:59 23:59 23:59 23:59 Intake Total
--- NOTE | 2020-09-02 12:35 | PC.NURSE ---
Patient returned to room following dialysis. Report received from NATASHA Hardy.
[2020-09-02] MEDS: DIGOXIN INJ 250 MCG/ML 2 ML AMP (*BKC) IV PUSH (12:46)
[2020-09-02 12:50] LABS: Glucose Point of Care 120 (65-105)
--- NOTE | 2020-09-02 15:40 | PM.PNCARD ---
Progress Note: A&P Assessment and Plan (1) New onset atrial fibrillation: Code(s): I48.91 - Unspecified atrial fibrillation Status: Acute Assessment and Plan: Amiodarone continues to infuse without much effect on heart rate. Heart rate up to 160's today in dialysis. Digoxin 125 mcg given IV with some effect on rate. He is not an anticoagulation candidate due to frequent falls. 2D echocardiogram Doppler ordered. Has not been done due to COVID and elevated heart rate. (2) Elevated troponin: Code(s): R77.8 - Other specified abnormalities of plasma proteins Status: Acute Assessment and Plan: This is not related to ACS. (3) Frequent falls: Code(s): R29.6 - Repeated falls Status: Acute Assessment and Plan: Frequent falls. Possibly related to orthostatic hypotension? (4) End stage renal disease: Code(s): N18.6 - End stage renal disease Status: Chronic Assessment and Plan: Per nephrology. Did not tolerate dialysis today with elevated heart rate and hypotension. (5) CAD (coronary artery disease): Qualifiers: Associated angina: without angina Coronary Disease-Associated Artery/Lesion type: [place] artery [place] vs. transplanted heart: [place] heart Qualified Code(s): I25.10 - Atherosclerotic heart disease of [place] coronary artery without angina pectoris Code(s): I25.10 - Atherosclerotic heart disease of [place] coronary artery without angina pectoris Status: Acute Assessment and Plan: Followed with [facility] 08/22: FOSTER to LAD. Left radial artery to PDA. Saphenous vein graft to obtuse marginal. Denied chest discomfort. (6) Hypotension: Qualifiers: Hypotension type: unspecified hypotension type Qualified Code(s): I95.9 - Hypotension, unspecified Code(s): I95.9 - Hypotension, unspecified Status: Acute Assessment and Plan: Has not received antihypertensive due to low BP. Will hold carvedilol, enalapril, nifedipine and furosemide for now. Additional Plan Plan discussed Dr. Velasquez [id number] 09/02/2020 Subjective Date/time seen: 09/02/20 15:40 Interval history: Follow-up for: Atrial fibrillation with rapid ventricular response, elevated troponin, frequent falls, end-stage renal disease on hemodialysis Date of service: 09/02/2020 Subjective: Trying to take a nap. Denied chest pain. No shortness of breath. Review of Systems Constitutional: Constitutional: Denies fatigue, Denies headache(s) and Reports weakness Eyes: Eyes: Denies blurry vision ENT: Reports Normal hearing present and Denies headache(s) Cardiovascular: Cardiovascular: Denies chest pain and Denies dyspnea Respiratory: Respiratory: Denies dyspnea Gastrointestinal: Gastrointestinal: Denies abdominal pain Genitourinary: Genitourinary: Denies dysuria Musculoskeletal: Musculoskeletal: Reports back pain and Reports arthralgias Integumentary/Breasts: Skin/Breast: Denies dry skin Neurologic: Reports Normal hearing present, Denies confusion, Denies headache(s) and Reports weakness Psychiatric: Psychiatric: Denies anxiety and Denies confusion Endocrine: Endocrine: Denies fatigue, Denies flushing and Reports palpitations Hematologic/Lymphatic: Hematologic/Lymphatic: Denies easy bleeding Allergic/Immunologic: Allergic/Immunologic: Denies GI upset with certain foods Exam Narrative: Exam Narrative: Drowsy. Pale. Just wants to take a nap. Const: General: comfortable and no acute distress Nutritional Appearance: thin Orientation/consciousness: oriented to person HENMT: General nose exam: Normal nares present Eyes: Sclera: sclerae normal Neck: Neck: supple and no JVD Resp: Auscultation: diminished lung sounds Cardio: Rate: tachy
[2020-09-02 16:58] LABS: Glucose Point of Care 195 (65-105)
--- NOTE | 2020-09-02 17:38 | PM.IMPN ---
Progress Note: A&P Assessment and Plan (1) Elevated troponin: Code(s): R77.8 - Other specified abnormalities of plasma proteins Status: Acute Assessment and Plan: Has a mildly elevated troponin. And he has been having multiple falls. The patient has no complaints of any chest pain any only has mildly elevated troponins. Will check another 1 in the a.m.. The patient's code status is DNR. He is on a daily aspirin. 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, patient denied any associated symptoms of chest pain palpitation or dizziness prior to fall, apparently patient tripped and landed on his knee, brought to the hospital, patient was found to have atrial fibrillation with RVR patient was seen by director of rotc patient was given bolus of amiodarone started the patient on drip, cardiology does not recommend to anticoagulate the patient as he has a history falling and risk of bleeding, today patient HR in 130 but he is hypotensive seen by director of rotc and unable to give amiodoran, patient is also found to elevated tropes patient is seen by Cardiology and suspect most likely secondary to chronic kidney disease and stress from fall, unlikely acute coronary syndrome, there is a concern the patient may have COVID-19 and being isolated and tested patient is positive, on 09/01 discussed with the patient he does not want to be DNR and will switch him over to full code, however today patient was quite somnolent, tachycardia nursing staff spoke with the patient's son who is his POA now patient is DNR, patient seen by director of rotc with tachycardia patient was started on amiodarone drip however the rate was not controlled patient was given digoxin 0.125 mg IV, Patient is clinically stable at the present remains quite somnolent. (2) Frequent falls: Code(s): R29.6 - Repeated falls Status: Acute Assessment and Plan: We have PT and OT evaluation. computer security coordinator for placement. The patient lives home alone he does have a person that comes and helps some but the patient has had multiple falls and his home and patient can no longer live in his home. Please see the home health notes that the patient has fallen several times. The patient has fallen at least 2 times the last 3 days. He just can no longer live at home. At times his blood sugar does drop low but it is typically elevated his last A1c was 10.1. (3) Essential hypertension: Code(s): I10 - Essential (primary) hypertension Status: Chronic Assessment and Plan: Continue with Coreg and enalapril (4) Insulin dependent type 2 diabetes mellitus: Code(s): E11.9 - Type 2 diabetes mellitus without complications; Z79.4 - intermediate frame tender (current) use of insulin Status: Acute Assessment and Plan: His last A1c was 10.1. Accu-Cheks every 6 hours. Sliding scale early 6 hours. Typically his blood sugars do not appear to be controlled. Patient is on gabapentin for neuropathy. The patient is on high-dose sliding scale at this time. Continue with Lantus. (5) End-stage renal disease on hemodialysis: Code(s): N18.6 - End stage renal disease; Z99.2 - Dependence on renal dialysis Status: Acute Assessment and Plan: I did consult Dr. Moyer. The patient looks like he is on dialysis on Tuesday and Tuesday we are not sure when the patient had dialysis last but he does go to [facility] (6) Profound anemia: Qualifiers: Anemia type: iron deficiency Iron deficiency anemia type: chronic blood loss Qualified Code(s): D50.0 - Iron deficiency anemia secondary to blood loss (chronic) Code(s): D64.9 - Anemia, unspecified Status: Acute Assessment and Plan: Due to end-stage renal disease. Continue to monitor and
[2020-09-02 20:12] LABS: Glucose Point of Care 190 (65-105)
[2020-09-02] MEDS: MELATONIN 5 MG TABLET PO (20:16)
[2020-09-02] MEDS: ATORVASTATIN 20 MG TABLET PO (20:16)
[2020-09-03] VITALS (22 sets, daily range): BP systolic 92–124; BP diastolic 38–70; PULSE 99–146; RESP 16–26; TEMP 36.4–38.1; O2SAT 91–100
--- NOTE | 2020-09-03 | ECHO_ITS ---
Patient Info Name: Modesto Gonzalez Age: 79 years : 1940 Gender: Male Ht: 73 in Wt: 162 lbs BSA: 1.94 m2 HR: 125 bpm BP: 102 / 56 mmHg Heart Rhythm: Atrial Fibrillation Technical Quality: Good Exam Date: 09/03/2020 2:00 PM Exam Location: [facility] Card Pulmonary Patient Status: Inpatient Admit Date: 09/01/2020 Staff Ordering Physician: Abiodun Gay MD Area Representative: Antony Ly RDCS Attending Provider: Marjan King MD Referring Physician: Victor Hugo CHADWICK; Exam Type: CA echo doppler color flow Study Info Complete two-dimensional, color flow and Doppler transthoracic echocardiogram is performed. History/Risk Factors Afib; CAD, CHF, ESRD, HTN, DM2. Summary 1. Left ventricular systolic function is lower limits of normal estimated at 50-55%. 2. There is severe concentric increased left ventricular wall thickness. 3. False tendon noted in LV. 4. The left ventricular diastolic function is indeterminate. 5. Left atrial chamber dimension is severely enlarged. 6. Right atrial chamber dimension is moderately enlarged. 7. There is no aortic valve stenosis. 8. There is mild mitral valve regurgitation. 9. There is mild tricuspid valve regurgitation. 10. Mild pulmonary hypertension, estimated pulmonary arterial systolic pressure is 41 mmHg. Left Ventricle Left ventricular chamber dimension is normal. Left ventricular systolic function is lower limits of normal estimated at 50-55%. There is severe concentric increased left ventricular wall thickness. The left ventricular diastolic function is indeterminate. False tendon noted in LV. Right Ventricle Right ventricular chamber dimension is normal. Right ventricular systolic function is normal. Left Atria Left atrial chamber dimension is severely enlarged. Right Atria Right atrial chamber dimension is moderately enlarged. Aortic Valve The aortic valve is trileaflet. There is mild aortic valve sclerosis. There is no aortic valve stenosis. There is trace aortic valve regurgitation. Pulmonic Valve The pulmonic valve is normal. There is mild pulmonic regurgitation. Mitral Valve The mitral valve has normal leaflets. There is mild mitral valve regurgitation. The mitral valve annulus is severely calcified. Tricuspid Valve The tricuspid valve leaflets are normal. There is mild tricuspid valve regurgitation. Mild pulmonary hypertension, estimated pulmonary arterial systolic pressure is 41 mmHg. Pericardium/Pleural The pericardium appears normal. There is trivial pericardial effusion. Inferior Vena Cava Normal inferior vena cava with >50% collapse upon inspiration consistent with normal right atrial pressure, 5 mmHg. Aorta The aortic root size at the sinus of Valsalva is mildly dilated. There is mild aortic atherosclerosis. Left Ventricular Outflow Tract Name Value Normal LVOT 2D LVOT Diameter 1.9 cm LVOT Doppler LVOT Peak Gradient 6 mmHg LVOT Mean Gradient 3 mmHg LVOT VTI 20 cm LVOT VTI/AV VTI Ratio
[2020-09-03 05:40] LABS: Hematocrit 25.4 % (42.0-52.0); Hemoglobin 8.4 g/dL (14.0-18.0); Mean Corpuscular HGB Conc 33.1 g/dl (32-36); Mean Corpuscular Hemoglobin 32.2 pg (26-34); Mean Corpuscular Volume 97.3 fl (80-100); Mean Platelet Volume 10.6 fl (7.4-10.4); Platelet Count Result 222 k/mm3 (150-375); Red Blood Count 2.61 M/mm3 (4.6-6.20); Red Cell Distribution Width 13.2 % (11.5-14.5); White Blood Count 11.8 K/mm3 (4.5-10.0)
[2020-09-03 06:04] LABS: Anion Gap 12 mmol/L (8-16); Blood Urea Nitrogen 50 mg/dL (9-20); Calcium 8.5 mg/dL (8.4-10.2); Carbon Dioxide 26 mmol/L (22-30); Chloride 94 mmol/L (98-107); Estimated CRCL calculation 11 ml/min; Estimated Glomerular Filt Rate 10; Glucose 186 mg/dL (75-110); Potassium 4.9 mmol/L (3.4-5.0); Sodium 132 mmol/L (137-145)
[2020-09-03 08:34] LABS: Glucose Point of Care 170 (65-105)
[2020-09-03] MEDS: SEVELAMER CARBONATE 800 MG TABLET 2400 MG PO ×3 (08:49→17:06)
[2020-09-03] MEDS: TERAZOSIN HCL 5 MG CAPSULE 10 MG PO (08:51)
[2020-09-03] MEDS: ASPIRIN 81 MG ENTERIC TABLET PO (08:52)
[2020-09-03] MEDS: SENNA/DOCUSATE SODIUM TABLET 1 TAB PO (08:52)
[2020-09-03] MEDS: PRAMIPEXOLE 0.25 MG TABLET PO (08:52)
[2020-09-03] MEDS: CHOLECALCIFEROL 1,000 UNITS TABLET 5000 UNITS PO (08:52)
[2020-09-03] MEDS: GABAPENTIN 300 MG CAPSULE PO ×2 (08:52→17:06)
[2020-09-03] MEDS: INSULIN GLARGINE (*BKC) 100 UNITS/ML 30 UNITS SUB-Q (08:58)
[2020-09-03] MEDS: AMIODARONE 360 MG/D5W 200 ML 360 MG/200 ML BAG 16.67 MG IV CONT (08:59)
--- NOTE | 2020-09-03 10:42 | PCPTNOTE ---
The PT treatment was unable to be completed today. Verbal hold issued by RN due to low blood pressure. Will continue per Plan of Care frequency and duration.
--- NOTE | 2020-09-03 11:05 | PCOTNOTE ---
Patient is on hold per nursing this date.
[2020-09-03 12:11] LABS: Glucose Point of Care 261 (65-105)
[2020-09-03] MEDS: INSULIN ASPART (*BKC) 100 UNITS/ML SUB-Q ×2 (12:25→17:06)
--- NOTE | 2020-09-03 12:59 | PCPTNOTE ---
Spoke w/ Dr Varghese regarding pt's low BP. Dr Varghese stated to Hold PT. Will follow.
--- NOTE | 2020-09-03 13:49 | P.PNNP_ITS ---
Progress Note: A&P Assessment and Plan (1) End stage renal disease: Code(s): N18.6 - End stage renal disease Status: Chronic Assessment and Plan: * Due for dialysis tomorrow. * (normally Tuesday but since in the COVID unit he is TTS) * follow electrolytes, volume status, and clearance (2) Frequent falls: Code(s): R29.6 - Repeated falls Status: Acute Assessment and Plan: * etiology? - due to orthostatic hypotension? * noted numerous falls as per Home Health * PT/OT evaluation * may need placement (3) Person under investigation for COVID-19: Code(s): Z20.828 - Contact with and (suspected) exposure to other viral communicable diseases Status: Acute Assessment and Plan: * Is positive. * (4) Atrial fibrillation: Code(s): I48.91 - Unspecified atrial fibrillation Status: Acute Assessment and Plan: * as noted today * Cardiology following * not a candidate for anticoagulation (due to falls) * on amiodarone without much improvement (5) Essential hypertension: Code(s): I10 - Essential (primary) hypertension Status: Chronic Assessment and Plan: * issues with hypotension noted * He is on terazosin, nifedipine, carvedilol, and enalapril. * This is all on hold. * Will probably not restart terazosin at all. (6) Anemia: Code(s): D64.9 - Anemia, unspecified Status: Acute Assessment and Plan: * in range for ESRD * Epogen with HD * Hemoglobin is dropping. Increase EPO dose. (7) Diabetes: Code(s): E11.9 - Type 2 diabetes mellitus without complications Status: Chronic Assessment and Plan: * follows with Endocrinology * follow accuchecks * on Lantus and SSI Subjective Date/time seen: 09/03/20 13:49 Interval history: Patient is comfortable lying in bed . He is on oxygen by nasal cannula. Exam Narrative: Exam Narrative: General: WD/WN male in NAD Heart: IRRR, tachycardic, normal S1 and S2; no rub Lungs: decreased at bases Abdomen: BS+ nontender Extremities: no edema Skin: No rash Objective Data Vital Signs Vital Signs: Vital Signs - 24 hr 09/02/20 14:00 09/02/20 16:00 09/02/20 16:45 Temperature 36.9 C Pulse Rate 157 H 123 H Respiratory Rate 20 Blood Pressure 120/51 L Pulse Oximetry 98 98 09/02/20 18:00 09/02/20 20:00 09/02/20 20:03 Temperature Pulse Rate 146 H 130 H 160 H Respiratory Rate Blood Pressure Pulse Oximetry 99 09/02/20 20:15 09/02/20 20:16 09/02/20 22:00 Temperature 35.9 C L Pulse Rate 67 160 H 127 H Respiratory Rate 18 Blood Pressure 120/48 L Pulse Oximetry 100 09/02/20 22:41 09/02/20 23:45 09/03/20 00:00 Temperature 36.0 C L Pulse Rate 78 110 H Respiratory Rate 22 H Blood Pressure 115/95 H Pulse Oximetry 97 96 99 09/03/20 02:00 09/03/20 03:24 09/03/20 04:00 Temperature 36.5 C Pulse Rate 122 H 118 H Respiratory Rate 18 Blood Pressure 124/70 Pulse Oximetry 99 97 09/03/20 06:00 09/03/20 08:00 09/03/20
--- NOTE | 2020-09-03 13:49 | PM.PNNEP ---
Progress Note: A&P Assessment and Plan (1) End stage renal disease: Code(s): N18.6 - End stage renal disease Status: Chronic Assessment and Plan: Due for dialysis tomorrow. (normally Tuesday but since in the COVID unit he is TTS) follow electrolytes, volume status, and clearance (2) Frequent falls: Code(s): R29.6 - Repeated falls Status: Acute Assessment and Plan: etiology? - due to orthostatic hypotension? noted numerous falls as per Home Health PT/OT evaluation may need placement (3) Person under investigation for COVID-19: Code(s): Z20.828 - Contact with and (suspected) exposure to other viral communicable diseases Status: Acute Assessment and Plan: Is positive. (4) Atrial fibrillation: Code(s): I48.91 - Unspecified atrial fibrillation Status: Acute Assessment and Plan: as noted today Cardiology following not a candidate for anticoagulation (due to falls) on amiodarone without much improvement (5) Essential hypertension: Code(s): I10 - Essential (primary) hypertension Status: Chronic Assessment and Plan: issues with hypotension noted He is on terazosin, nifedipine, carvedilol, and enalapril. This is all on hold. Will probably not restart terazosin at all. (6) Anemia: Code(s): D64.9 - Anemia, unspecified Status: Acute Assessment and Plan: in range for ESRD Epogen with HD Hemoglobin is dropping. Increase EPO dose. (7) Diabetes: Code(s): E11.9 - Type 2 diabetes mellitus without complications Status: Chronic Assessment and Plan: follows with Endocrinology follow accuchecks on Lantus and SSI Subjective Date/time seen: 09/03/20 13:49 Interval history: Patient is comfortable lying in bed . He is on oxygen by nasal cannula. Exam Narrative: Exam Narrative: General: WD/WN male in NAD Heart: IRRR, tachycardic, normal S1 and S2; no rub Lungs: decreased at bases Abdomen: BS+ nontender Extremities: no edema Skin: No rash Objective Data Vital Signs Vital Signs: Vital Signs - 24 hr 09/02/20 14:00 09/02/20 16:00 09/02/20 16:45 Temperature 36.9 C Pulse Rate 157 H 123 H Respiratory Rate 20 Blood Pressure 120/51 L Pulse Oximetry 98 98 09/02/20 18:00 09/02/20 20:00 09/02/20 20:03 Temperature Pulse Rate 146 H 130 H 160 H Respiratory Rate Blood Pressure Pulse Oximetry 99 09/02/20 20:15 09/02/20 20:16 09/02/20 22:00 Temperature 35.9 C L Pulse Rate 67 160 H 127 H Respiratory Rate 18 Blood Pressure 120/48 L Pulse Oximetry 100 09/02/20 22:41 09/02/20 23:45 09/03/20 00:00 Temperature 36.0 C L Pulse Rate 78 110 H Respiratory Rate 22 H Blood Pressure 115/95 H Pulse Oximetry 97 96 99 09/03/20 02:00 09/03/20 03:24 09/03/20 04:00 Temperature 36.5 C Pulse Rate 122 H 118 H Respiratory Rate 18 Blood Pressure 124/70 Pulse Oximetry 99 97 09/03/20 06:00 09/03/20 08:00 09/03/20 08:16 Temperature 36.9 C Pulse Rate 130 H 114 H 129 H Respiratory Rate 20 Blood Pressure 97/49 L Pulse Oximetry 100 09/03/20 08:59 09/03/20 09:45 09/03/20 10:00 Temperature Pulse Rate 129 H 118 H Respiratory Rate Blood Pressure Pulse Oximetry 91 09/03/20 11:29 09/03/20 12:00 Temperature 37.4 C Pulse Rate 118 H 120 H Respiratory Rate 20 Blood Pressure 115/38 L Pulse Oximetry 96 Intake/Output Intake/Output: Intake & Output 08/31/20 09/01/20 09/02/20 09/03/20 23:59 23:59 23:59 23:59 Intake Total 680 900 630 540 Output Total 0 0 250 Balance 680 900 380 540 Meds/Results Medications: Active Medications Generic Name Dose Route Start Last Admin Trade Name Freq PRN Reason Stop Dose Admin Aspirin 81 mg 08/31/20 09:00 09/03/20 08:52 Aspirin 81 Mg Enteric Tablet PO 81 mg DAILY DIOGENES Administration Atorvastatin Ca
--- NOTE | 2020-09-03 14:22 | PM.PNCARD ---
Progress Note: A&P Assessment and Plan (1) New onset atrial fibrillation: Code(s): I48.91 - Unspecified atrial fibrillation Status: Acute Assessment and Plan: He is not an anticoagulation candidate due to frequent falls. 2D echocardiogram Doppler pending. Heart rate is fairly well controlled. Will change to p.o. amiodarone. (2) Elevated troponin: Code(s): R77.8 - Other specified abnormalities of plasma proteins Status: Acute Assessment and Plan: This is not related to ACS. (3) Frequent falls: Code(s): R29.6 - Repeated falls Status: Acute Assessment and Plan: Frequent falls. Possibly related to orthostatic hypotension? (4) End stage renal disease: Code(s): N18.6 - End stage renal disease Status: Chronic Assessment and Plan: Per nephrology. Did not tolerate dialysis today with elevated heart rate and hypotension. (5) CAD (coronary artery disease): Qualifiers: Coronary Disease-Associated Artery/Lesion type: [place] artery [place] vs. transplanted heart: [place] heart Associated angina: without angina Qualified Code(s): I25.10 - Atherosclerotic heart disease of [place] coronary artery without angina pectoris Code(s): I25.10 - Atherosclerotic heart disease of [place] coronary artery without angina pectoris Status: Acute Assessment and Plan: Followed with [facility] 08/22: FOSTER to LAD. Left radial artery to PDA. Saphenous vein graft to obtuse marginal. Denied chest discomfort. (6) Hypotension: Qualifiers: Hypotension type: unspecified hypotension type Qualified Code(s): I95.9 - Hypotension, unspecified Code(s): I95.9 - Hypotension, unspecified Status: Acute Assessment and Plan: Continue to hold carvedilol, enalapril, nifedipine and furosemide due to BP. Terazosin discontinued by Dr. Moyer. Additional Plan Plan discussed Dr. Velasquez [id number] 09/03/2020 Subjective Date/time seen: 09/03/20 14:22 Interval history: Follow-up for: Atrial fibrillation with rapid ventricular response, elevated troponin, frequent falls, end-stage renal disease on hemodialysis Date of service: 09/03/2020 Subjective: Lethargic but arousable. Chest discomfort with coughing. Breathing is ?rough?. ?Just wish the good Lord was finished with me?. Review of Systems Constitutional: Constitutional: Reports fatigue and Reports weakness Eyes: Eyes: Denies blurry vision ENT: Reports Normal hearing present and Denies headache(s) Cardiovascular: Cardiovascular: Reports chest pain (With coughing) and Reports dyspnea Respiratory: Respiratory: Reports dyspnea Gastrointestinal: Gastrointestinal: Denies abdominal pain Genitourinary: Genitourinary: Denies dysuria Musculoskeletal: Musculoskeletal: Reports back pain and Reports arthralgias Integumentary/Breasts: Skin/Breast: Denies dry skin Neurologic: Reports Normal hearing present, Reports confusion, Denies headache(s) and Reports weakness Psychiatric: Psychiatric: Denies anxiety and Reports confusion Endocrine: Endocrine: Denies fatigue and Denies flushing Hematologic/Lymphatic: Hematologic/Lymphatic: Denies easy bleeding Allergic/Immunologic: Allergic/Immunologic: Denies GI upset with certain foods Exam Narrative: Exam Narrative: Lethargic but arousable. Comfortable. No distress. Const: General: comfortable, no acute distress and confusion Nutritional Appearance: thin Orientation/consciousness: oriented to person and confusion HENMT: General nose exam: Normal nares present Mouth: Yes dry mucous membranes Eyes: Sclera: sclerae normal Neck: Neck: supple and no JVD Resp: Auscultation: diminished lung sounds Cardio: Rate: tachycardic Rhyth
--- NOTE | 2020-09-03 16:45 | PM.IMPN ---
Progress Note: A&P Assessment and Plan (1) Elevated troponin: Code(s): R77.8 - Other specified abnormalities of plasma proteins Status: Acute Assessment and Plan: Has a mildly elevated troponin. And he has been having multiple falls. The patient has no complaints of any chest pain any only has mildly elevated troponins. Will check another 1 in the a.m.. The patient's code status is DNR. He is on a daily aspirin. 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, patient denied any associated symptoms of chest pain palpitation or dizziness prior to fall, apparently patient tripped and landed on his knee, brought to the hospital, patient was found to have atrial fibrillation with RVR patient was seen by technical services manager patient was given bolus of amiodarone started the patient on drip, cardiology does not recommend to anticoagulate the patient as he has a history falling and risk of bleeding, today patient HR in 130 but he is hypotensive seen by technical services manager and unable to give amiodoran, patient is also found to elevated tropes patient is seen by Cardiology and suspect most likely secondary to chronic kidney disease and stress from fall, unlikely acute coronary syndrome, there is a concern the patient may have COVID-19 and being isolated and tested patient is positive, on 09/01 discussed with the patient he does not want to be DNR and will switch him over to full code, however on 09/02 patient was quite somnolent, tachycardia nursing staff spoke with the patient's son who is his POA patient was plaed on DNR, patient seen by technical services manager with tachycardia patient was started on amiodarone drip however the rate was not controlled patient was given digoxin 0.125 mg IV. today patient is switch to oral amiodoran technical services manager rate is controlled, seen by Nephrology patient will dialysis tomorrow, patient clinically symptoms are improving he is now on 1 L of oxygen has not had any fever if remains clinically stable rate is controlled will transfer the patient also IMU to medical floor and may possibly to the discharge planning, Patient is clinically stable at the present remains quite somnolent. (2) Frequent falls: Code(s): R29.6 - Repeated falls Status: Acute Assessment and Plan: We have PT and OT evaluation. community health coordinator for placement. The patient lives home alone he does have a person that comes and helps some but the patient has had multiple falls and his home and patient can no longer live in his home. Please see the home health notes that the patient has fallen several times. The patient has fallen at least 2 times the last 3 days. He just can no longer live at home. At times his blood sugar does drop low but it is typically elevated his last A1c was 10.1. (3) Essential hypertension: Code(s): I10 - Essential (primary) hypertension Status: Chronic Assessment and Plan: Continue with Coreg and enalapril (4) Insulin dependent type 2 diabetes mellitus: Code(s): E11.9 - Type 2 diabetes mellitus without complications; Z79.4 - [facility]iary (current) use of insulin Status: Acute Assessment and Plan: His last A1c was 10.1. Accu-Cheks every 6 hours. Sliding scale early 6 hours. Typically his blood sugars do not appear to be controlled. Patient is on gabapentin for neuropathy. The patient is on high-dose sliding scale at this time. Continue with Lantus. (5) End-stage renal disease on hemodialysis: Code(s): N18.6 - End stage renal disease; Z99.2 - Dependence on renal dialysis Status: Acute Assessment and Plan: I did consult Dr. Moyer. The patient looks like he is on dialysis on Tuesday and Tuesday we are not sure when the patient had dialysis last but he does go to
[2020-09-03 17:02] LABS: Glucose Point of Care 246 (65-105)
[2020-09-03 20:09] LABS: Glucose Point of Care 105 (65-105)
[2020-09-03] MEDS: ATORVASTATIN 20 MG TABLET PO (20:58)
[2020-09-03] MEDS: AMIODARONE HCL 200 MG TABLET PO (20:58)
[2020-09-03] MEDS: MELATONIN 5 MG TABLET PO (20:58)
[2020-09-04] VITALS (37 sets, daily range): BP systolic 85–145; BP diastolic 45–119; PULSE 66–213; RESP 16–20; TEMP 36–37; O2SAT 91–95
[2020-09-04 05:39] LABS: Hematocrit 25.6 % (42.0-52.0); Hemoglobin 8.1 g/dL (14.0-18.0); Mean Corpuscular HGB Conc 31.6 g/dl (32-36); Mean Corpuscular Hemoglobin 31.2 pg (26-34); Mean Corpuscular Volume 98.5 fl (80-100); Mean Platelet Volume 10.5 fl (7.4-10.4); Platelet Count Result 248 k/mm3 (150-375); Red Cell Distribution Width 13.2 % (11.5-14.5); White Blood Count 13.1 K/mm3 (4.5-10.0)
[2020-09-04 06:07] LABS: Albumin Level 2.9 g/dL (3.5-5.1); Anion Gap 12 mmol/L (8-16); Blood Urea Nitrogen 59 mg/dL (9-20); Calcium 8.4 mg/dL (8.4-10.2); Carbon Dioxide 29 mmol/L (22-30); Chloride 93 mmol/L (98-107); Estimated CRCL calculation 9 ml/min; Estimated Glomerular Filt Rate 7; Glucose 93 mg/dL (75-110); Phosphorus 4.4 mg/dL (2.5-4.5); Potassium 4.6 mmol/L (3.4-5.0); Sodium 134 mmol/L (137-145)
[2020-09-04] MEDS: GABAPENTIN 300 MG CAPSULE PO ×2 (08:57→21:29)
[2020-09-04] MEDS: SENNA/DOCUSATE SODIUM TABLET 1 TAB PO (08:57)
[2020-09-04] MEDS: CHOLECALCIFEROL 1,000 UNITS TABLET 5000 UNITS PO (08:57)
[2020-09-04] MEDS: SEVELAMER CARBONATE 800 MG TABLET 2400 MG PO ×2 (08:57→12:39)
[2020-09-04] MEDS: ASPIRIN 81 MG ENTERIC TABLET PO (08:58)
[2020-09-04] MEDS: PRAMIPEXOLE 0.25 MG TABLET PO (08:58)
[2020-09-04] MEDS: AMIODARONE HCL 200 MG TABLET PO ×2 (08:58→21:28)
[2020-09-04 10:58] LABS: Glucose Point of Care 115 (65-105)
--- NOTE | 2020-09-04 12:46 | P.PNNP_ITS ---
Progress Note: A&P Assessment and Plan (1) End stage renal disease: Code(s): N18.6 - End stage renal disease Status: Chronic Assessment and Plan: * Due for dialysis today.. * (normally Tuesday but since in the COVID unit he is TTS) * follow electrolytes, volume status, and clearance (2) Frequent falls: Code(s): R29.6 - Repeated falls Status: Acute Assessment and Plan: * etiology? - due to orthostatic hypotension? * noted numerous falls as per Home Health * PT/OT evaluation * Still very weak. (3) Person under investigation for COVID-19: Code(s): Z20.828 - Contact with and (suspected) exposure to other viral communicable diseases Status: Acute Assessment and Plan: * Is positive. * (4) Atrial fibrillation: Code(s): I48.91 - Unspecified atrial fibrillation Status: Acute Assessment and Plan: * as noted today * Cardiology following * not a candidate for anticoagulation (due to falls) * on amiodarone and metoprolol. (5) Essential hypertension: Code(s): I10 - Essential (primary) hypertension Status: Chronic Assessment and Plan: * issues with hypotension noted * He is on terazosin, nifedipine, carvedilol, and enalapril. * This is all on hold. * Blood pressure is better this morning off his medicines. (6) Anemia: Code(s): D64.9 - Anemia, unspecified Status: Acute Assessment and Plan: * in range for ESRD * Epogen with HD * Hemoglobin is dropping. Increased EPO dose. (7) Diabetes: Code(s): E11.9 - Type 2 diabetes mellitus without complications Status: Chronic Assessment and Plan: * follows with Endocrinology * follow accuchecks * on Lantus and SSI Subjective Date/time seen: 09/04/20 12:46 Interval history: Patient is comfortable lying in bed He says he hurts everywhere. Exam Narrative: Exam Narrative: General: WD/WN male in NAD Heart: IRRR, tachycardic, normal S1 and S2; no rub Lungs: decreased at bases Abdomen: BS+ nontender Extremities: no edema Skin: No rash or subcu nodules Objective Data Vital Signs Vital Signs: Vital Signs - 24 hr 09/03/20 14:00 09/03/20 14:25 09/03/20 16:00 Temperature 38.1 C H Pulse Rate 109 H 101 H 119 H Respiratory Rate 26 H Blood Pressure 104/47 L Pulse Oximetry 91 09/03/20 18:00 09/03/20 20:00 09/03/20 20:15 Temperature 36.4 C Pulse Rate 127 H 146 H 134 H Respiratory Rate 16 Blood Pressure 102/56 L Pulse Oximetry 97 94 09/03/20 20:58 09/03/20 22:00 09/03/20 23:27 Temperature Pulse Rate 127 H 115 H Respiratory Rate Blood Pressure Pulse Oximetry 98 09/03/20 23:59 09/04/20 00:00 09/04/20 02:00 Temperature 36.9 C Pulse Rate 113 H 115 H 116 H Respiratory Rate 16 Blood Pressure 92/48 L Pulse Oximetry 95 09/04/20 03:56 09/04/20 04:00 09/04/20 07:15 Temperature 36.6 C 36.9 C Pulse Rate 128 H 115 H Respiratory Rate 18 20 Blood Pressure 145/119 H 113/96 H Pulse Oximetry 92 91 92 09/04/20 08:0
--- NOTE | 2020-09-04 12:46 | PM.PNNEP ---
Progress Note: A&P Assessment and Plan (1) End stage renal disease: Code(s): N18.6 - End stage renal disease Status: Chronic Assessment and Plan: Due for dialysis today.. (normally Tuesday but since in the COVID unit he is TTS) follow electrolytes, volume status, and clearance (2) Frequent falls: Code(s): R29.6 - Repeated falls Status: Acute Assessment and Plan: etiology? - due to orthostatic hypotension? noted numerous falls as per Home Health PT/OT evaluation Still very weak. (3) Person under investigation for COVID-19: Code(s): Z20.828 - Contact with and (suspected) exposure to other viral communicable diseases Status: Acute Assessment and Plan: Is positive. (4) Atrial fibrillation: Code(s): I48.91 - Unspecified atrial fibrillation Status: Acute Assessment and Plan: as noted today Cardiology following not a candidate for anticoagulation (due to falls) on amiodarone and metoprolol. (5) Essential hypertension: Code(s): I10 - Essential (primary) hypertension Status: Chronic Assessment and Plan: issues with hypotension noted He is on terazosin, nifedipine, carvedilol, and enalapril. This is all on hold. Blood pressure is better this morning off his medicines. (6) Anemia: Code(s): D64.9 - Anemia, unspecified Status: Acute Assessment and Plan: in range for ESRD Epogen with HD Hemoglobin is dropping. Increased EPO dose. (7) Diabetes: Code(s): E11.9 - Type 2 diabetes mellitus without complications Status: Chronic Assessment and Plan: follows with Endocrinology follow accuchecks on Lantus and SSI Subjective Date/time seen: 09/04/20 12:46 Interval history: Patient is comfortable lying in bed He says he hurts everywhere. Exam Narrative: Exam Narrative: General: WD/WN male in NAD Heart: IRRR, tachycardic, normal S1 and S2; no rub Lungs: decreased at bases Abdomen: BS+ nontender Extremities: no edema Skin: No rash or subcu nodules Objective Data Vital Signs Vital Signs: Vital Signs - 24 hr 09/03/20 14:00 09/03/20 14:25 09/03/20 16:00 Temperature 38.1 C H Pulse Rate 109 H 101 H 119 H Respiratory Rate 26 H Blood Pressure 104/47 L Pulse Oximetry 91 09/03/20 18:00 09/03/20 20:00 09/03/20 20:15 Temperature 36.4 C Pulse Rate 127 H 146 H 134 H Respiratory Rate 16 Blood Pressure 102/56 L Pulse Oximetry 97 94 09/03/20 20:58 09/03/20 22:00 09/03/20 23:27 Temperature Pulse Rate 127 H 115 H Respiratory Rate Blood Pressure Pulse Oximetry 98 09/03/20 23:59 09/04/20 00:00 09/04/20 02:00 Temperature 36.9 C Pulse Rate 113 H 115 H 116 H Respiratory Rate 16 Blood Pressure 92/48 L Pulse Oximetry 95 09/04/20 03:56 09/04/20 04:00 09/04/20 07:15 Temperature 36.6 C 36.9 C Pulse Rate 128 H 115 H Respiratory Rate 18 20 Blood Pressure 145/119 H 113/96 H Pulse Oximetry 92 91 92 09/04/20 08:00 09/04/20 08:58 09/04/20 10:00 Temperature Pulse Rate 139 H 140 H 129 H Respiratory Rate Blood Pressure Pulse Oximetry Intake/Output Intake/Output: Intake & Output 09/01/20 09/02/20 09/03/20 09/04/20 23:59 23:59 23:59 23:59 Intake Total 900 630 640 50 Output Total 0 250 Balance 900 380 640 50 Meds/Results Medications: Active Medications Generic Name Dose Route Start Last Admin Trade Name Freq PRN Reason Stop Dose Admin Amiodarone HCl 200 mg 09/03/20 21:00 09/04/20 08:58 Amiodarone Hcl 200 Mg Tablet PO 200 mg Q12HR DIOGENES Administration Aspirin 81 mg 08/31/20 09:00 09/04/20 08:58 Aspirin 81 Mg Enteric Tablet PO 81 mg DAILY DIOGENES Administration Atorvastatin Calcium 20 mg 08/30/20 22:50 09/03/20 20:58 Atorvastatin 20 Mg Tablet PO 20 mg HS DIOGENES Administration Dextrose 12.5 gm 08/30/20 18:50 Dextros
[2020-09-04] MEDS: METOPROLOL TARTRATE INJ 5 MG/5 ML VIAL 2.5 MG IV PUSH ×2 (12:54→21:29)
[2020-09-04 13:09] LABS: Glucose Point of Care 133 (65-105)
--- NOTE | 2020-09-04 15:14 | PM.IMPN ---
Progress Note: A&P Assessment and Plan (1) Elevated troponin: Code(s): R77.8 - Other specified abnormalities of plasma proteins Status: Acute Assessment and Plan: Has a mildly elevated troponin. And he has been having multiple falls. The patient has no complaints of any chest pain any only has mildly elevated troponins. Will check another 1 in the a.m.. The patient's code status is DNR. He is on a daily aspirin. 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, patient denied any associated symptoms of chest pain palpitation or dizziness prior to fall, apparently patient tripped and landed on his knee, brought to the hospital, patient was found to have atrial fibrillation with RVR patient was seen by operations systems specialist patient was given bolus of amiodarone started the patient on drip, cardiology does not recommend to anticoagulate the patient as he has a history falling and risk of bleeding, today patient HR in 130 but he is hypotensive seen by operations systems specialist and unable to give amiodoran, patient is also found to elevated tropes patient is seen by Cardiology and suspect most likely secondary to chronic kidney disease and stress from fall, unlikely acute coronary syndrome, there is a concern the patient may have COVID-19 and being isolated and tested patient is positive, on 09/01 discussed with the patient he does not want to be DNR and will switch him over to full code, however on 09/02 patient was quite somnolent, tachycardia nursing staff spoke with the patient's son who is his POA patient was plaed on DNR, patient seen by operations systems specialist with tachycardia patient was started on amiodarone drip however the rate was not controlled patient was given digoxin 0.125 mg IV. on 09/03 patient was switch to oral amiodoran by operations systems specialist rate was controlled, however today patient HR is trending up and operations systems specialist gave lopressor 2.5mg IV, will continue to monitor, seen by Nephrology patient will dialysis today, , patient clinically symptoms are improving he is now on 1 L of oxygen has not had any fever if remains clinically stable rate is controlled will transfer the patient out of IMU to medical floor and may possibly to the discharge planning, Patient is clinically stable at the present remains quite somnolent. (2) Frequent falls: Code(s): R29.6 - Repeated falls Status: Acute Assessment and Plan: We have PT and OT evaluation. construction project coordinator for placement. The patient lives home alone he does have a person that comes and helps some but the patient has had multiple falls and his home and patient can no longer live in his home. Please see the home health notes that the patient has fallen several times. The patient has fallen at least 2 times the last 3 days. He just can no longer live at home. At times his blood sugar does drop low but it is typically elevated his last A1c was 10.1. (3) Essential hypertension: Code(s): I10 - Essential (primary) hypertension Status: Chronic Assessment and Plan: Continue with Coreg and enalapril (4) Insulin dependent type 2 diabetes mellitus: Code(s): E11.9 - Type 2 diabetes mellitus without complications; Z79.4 - prison (current) use of insulin Status: Acute Assessment and Plan: His last A1c was 10.1. Accu-Cheks every 6 hours. Sliding scale early 6 hours. Typically his blood sugars do not appear to be controlled. Patient is on gabapentin for neuropathy. The patient is on high-dose sliding scale at this time. Continue with Lantus. (5) End-stage renal disease on hemodialysis: Code(s): N18.6 - End stage renal disease; Z99.2 - Dependence on renal dialysis Status: Acute Assessment and Plan: I did consult Dr. Moyer. The patient looks li
[2020-09-04 17:41] LABS: Glucose Point of Care 115 (65-105)
[2020-09-04] MEDS: EPOETIN ALFA-EPBX 20,000 UNITS/ML VIAL 20000 UNITS IV PUSH (18:58)
[2020-09-04 20:49] LABS: Glucose Point of Care 104 (65-105)
[2020-09-04] MEDS: ATORVASTATIN 20 MG TABLET PO (21:28)
[2020-09-04] MEDS: MELATONIN 5 MG TABLET PO (21:29)
[2020-09-05] VITALS (18 sets, daily range): BP systolic 95–131; BP diastolic 51–85; PULSE 112–137; RESP 16–20; TEMP 36.3–36.8; O2SAT 90–99
[2020-09-05] MEDS: METOPROLOL TARTRATE INJ 5 MG/5 ML VIAL 2.5 MG IV PUSH ×4 (05:14→21:41)
[2020-09-05 05:16] LABS: Hematocrit 25.6 % (42.0-52.0); Hemoglobin 8.2 g/dL (14.0-18.0); Mean Corpuscular Hemoglobin 31.8 pg (26-34); Mean Corpuscular Volume 99.2 fl (80-100); Mean Platelet Volume 10.4 fl (7.4-10.4); Platelet Count Result 269 k/mm3 (150-375); Red Blood Count 2.58 M/mm3 (4.6-6.20); Red Cell Distribution Width 13.2 % (11.5-14.5); White Blood Count 11.4 K/mm3 (4.5-10.0)
[2020-09-05 05:39] LABS: Anion Gap 10 mmol/L (8-16); Blood Urea Nitrogen 30 mg/dL (9-20); Calcium 8.2 mg/dL (8.4-10.2); Carbon Dioxide 33 mmol/L (22-30); Chloride 94 mmol/L (98-107); Estimated CRCL calculation 15 ml/min; Estimated Glomerular Filt Rate 14; Glucose 102 mg/dL (75-110); Potassium 4.3 mmol/L (3.4-5.0); Sodium 137 mmol/L (137-145)
--- NOTE | 2020-09-05 09:09 | P.PNNP_ITS ---
Progress Note: A&P Assessment and Plan (1) End stage renal disease: Code(s): N18.6 - End stage renal disease Status: Chronic Assessment and Plan: * Due for dialysis tomorrow * Volume status looks okay. * No fluid removed on dialysis yesterday. * He is not eating very well. (2) Frequent falls: Code(s): R29.6 - Repeated falls Status: Acute Assessment and Plan: * etiology? - due to orthostatic hypotension? * noted numerous falls as per Home Health * PT/OT in progress * Still very weak. (3) Person under investigation for COVID-19: Code(s): Z20.828 - Contact with and (suspected) exposure to other viral communicable diseases Status: Acute Assessment and Plan: * Is positive. * Supportive care (4) Atrial fibrillation: Code(s): I48.91 - Unspecified atrial fibrillation Status: Acute Assessment and Plan: * as noted today * Cardiology following * not a candidate for anticoagulation (due to falls) * Heart rate is still somewhat high * on amiodarone and metoprolol. (5) Essential hypertension: Code(s): I10 - Essential (primary) hypertension Status: Chronic Assessment and Plan: * issues with hypotension noted * He is on terazosin, nifedipine, carvedilol, and enalapril. * This is all on hold. * Blood pressure is better this morning off his medicines. (6) Anemia: Code(s): D64.9 - Anemia, unspecified Status: Acute Assessment and Plan: * in range for ESRD * Epogen with HD * Hemoglobin is dropping. Increased EPO dose. (7) Diabetes: Code(s): E11.9 - Type 2 diabetes mellitus without complications Status: Chronic Assessment and Plan: * follows with Endocrinology * follow accuchecks * on Lantus and SSI Subjective Date/time seen: 09/05/20 09:09 Interval history: Patient is comfortable lying in bed He is hungry for breakfast. I asked nursing to ordering some scrambled eggs. Exam Narrative: Exam Narrative: General: WD/WN male in NAD Heart: IRRR, tachycardic, normal S1 and S2; no rub Lungs: decreased at bases Abdomen: BS+ nontender and soft Extremities: no edema Skin: No rash or subcu nodules Objective Data Vital Signs Vital Signs: Vital Signs - 24 hr 09/04/20 10:00 09/04/20 12:00 09/04/20 12:40 Temperature 36.6 C Pulse Rate 129 H 116 H Respiratory Rate 16 Blood Pressure 90/64 L Pulse Oximetry 93 93 09/04/20 12:54 09/04/20 14:00 09/04/20 15:56 Temperature 36.8 C Pulse Rate 124 H 124 H 126 H Respiratory Rate 16 Blood Pressure 91/52 L Pulse Oximetry 09/04/20 16:00 09/04/20 16:03 09/04/20 16:15 Temperature 36.7 C Pulse Rate 107 H 103 H 110 H Respiratory Rate 16 Blood Pressure 108/68 95/50 L 110/49 L Pulse Oximetry 95 09/04/20 16:25 09/04/20 16:30 09/04/20 16:45 Temperature Pulse Rate 108 H 102 H Respiratory Rate Blood Pressure 110/60 116/64 Pulse Oximetry 94 09/04/20 17:00 09/04/20 17:15 09/04/20 17:30 Temperature Pulse Rate 132 H 141 H 66 Respiratory Rate Blood Pressure 115/61 127/
--- NOTE | 2020-09-05 09:09 | PM.PNNEP ---
Progress Note: A&P Assessment and Plan (1) End stage renal disease: Code(s): N18.6 - End stage renal disease Status: Chronic Assessment and Plan: Due for dialysis tomorrow Volume status looks okay. No fluid removed on dialysis yesterday. He is not eating very well. (2) Frequent falls: Code(s): R29.6 - Repeated falls Status: Acute Assessment and Plan: etiology? - due to orthostatic hypotension? noted numerous falls as per Home Health PT/OT in progress Still very weak. (3) Person under investigation for COVID-19: Code(s): Z20.828 - Contact with and (suspected) exposure to other viral communicable diseases Status: Acute Assessment and Plan: Is positive. Supportive care (4) Atrial fibrillation: Code(s): I48.91 - Unspecified atrial fibrillation Status: Acute Assessment and Plan: as noted today Cardiology following not a candidate for anticoagulation (due to falls) Heart rate is still somewhat high on amiodarone and metoprolol. (5) Essential hypertension: Code(s): I10 - Essential (primary) hypertension Status: Chronic Assessment and Plan: issues with hypotension noted He is on terazosin, nifedipine, carvedilol, and enalapril. This is all on hold. Blood pressure is better this morning off his medicines. (6) Anemia: Code(s): D64.9 - Anemia, unspecified Status: Acute Assessment and Plan: in range for ESRD Epogen with HD Hemoglobin is dropping. Increased EPO dose. (7) Diabetes: Code(s): E11.9 - Type 2 diabetes mellitus without complications Status: Chronic Assessment and Plan: follows with Endocrinology follow accuchecks on Lantus and SSI Subjective Date/time seen: 09/05/20 09:09 Interval history: Patient is comfortable lying in bed He is hungry for breakfast. I asked nursing to ordering some scrambled eggs. Exam Narrative: Exam Narrative: General: WD/WN male in NAD Heart: IRRR, tachycardic, normal S1 and S2; no rub Lungs: decreased at bases Abdomen: BS+ nontender and soft Extremities: no edema Skin: No rash or subcu nodules Objective Data Vital Signs Vital Signs: Vital Signs - 24 hr 09/04/20 10:00 09/04/20 12:00 09/04/20 12:40 Temperature 36.6 C Pulse Rate 129 H 116 H Respiratory Rate 16 Blood Pressure 90/64 L Pulse Oximetry 93 93 09/04/20 12:54 09/04/20 14:00 09/04/20 15:56 Temperature 36.8 C Pulse Rate 124 H 124 H 126 H Respiratory Rate 16 Blood Pressure 91/52 L Pulse Oximetry 09/04/20 16:00 09/04/20 16:03 09/04/20 16:15 Temperature 36.7 C Pulse Rate 107 H 103 H 110 H Respiratory Rate 16 Blood Pressure 108/68 95/50 L 110/49 L Pulse Oximetry 95 09/04/20 16:25 09/04/20 16:30 09/04/20 16:45 Temperature Pulse Rate 108 H 102 H Respiratory Rate Blood Pressure 110/60 116/64 Pulse Oximetry 94 09/04/20 17:00 09/04/20 17:15 09/04/20 17:30 Temperature Pulse Rate 132 H 141 H 66 Respiratory Rate Blood Pressure 115/61 127/78 85/51 L Pulse Oximetry 09/04/20 17:45 09/04/20 18:00 09/04/20 18:15 Temperature Pulse Rate 132 H 84 110 H Respiratory Rate Blood Pressure 101/58 L 96/59 L 125/62 Pulse Oximetry 09/04/20 18:30 09/04/20 18:45 09/04/20 19:00 Temperature Pulse Rate 83 92 128 H Respiratory Rate Blood Pressure 136/70 137/45 L 115/51 L Pulse Oximetry 09/04/20 19:15 09/04/20 19:30 09/04/20 19:33 Temperature Pulse Rate 106 H 111 H 114 H Respiratory Rate Blood Pressure 123/50 L 105/52 L 140/61 Pulse Oximetry 09/04/20 19:50 09/04/20 20:00 09/04/20 21:28 Temperature 36.2 C L 36.2 C L Pulse Rate 100 132 H 136 H Respiratory Rate 16 20 Blood Pressure 122/61 98/75 L Pulse Oximetry 92 09/04/20 22:00 09/05/20 00:00 09/05/20 02:00 Temperature 36.8 C Pulse Rate 123 H 128 H 126 H Respiratory Rate 20
[2020-09-05] MEDS: GABAPENTIN 300 MG CAPSULE PO ×2 (10:19→18:34)
[2020-09-05] MEDS: CHOLECALCIFEROL 1,000 UNITS TABLET 5000 UNITS PO (10:20)
[2020-09-05] MEDS: SENNA/DOCUSATE SODIUM TABLET 1 TAB PO (10:20)
[2020-09-05] MEDS: SEVELAMER CARBONATE 800 MG TABLET 2400 MG PO ×3 (10:20→18:33)
[2020-09-05] MEDS: ASPIRIN 81 MG ENTERIC TABLET PO (10:20)
[2020-09-05] MEDS: AMIODARONE HCL 200 MG TABLET PO (10:21)
[2020-09-05] MEDS: INSULIN GLARGINE (*BKC) 100 UNITS/ML 30 UNITS SUB-Q (10:27)
[2020-09-05 13:32] LABS: Glucose Point of Care 117 (65-105)
[2020-09-05 13:32] LABS: Glucose Point of Care 114 (65-105)
--- NOTE | 2020-09-05 14:09 | PM.PNCARD ---
Progress Note: A&P Assessment and Plan (1) New onset atrial fibrillation: Code(s): I48.91 - Unspecified atrial fibrillation Status: Acute Assessment and Plan: He is not an anticoagulation candidate due to frequent falls. Heart rate is not well controlled on amiodarone 200 mg b.i.d., will increase to 400 mg q12 H, and also add p.r.n. IV metoprolol if his blood pressure allows. (2) Elevated troponin: Code(s): R77.8 - Other specified abnormalities of plasma proteins Status: Acute Assessment and Plan: This is not related to ACS. (3) Frequent falls: Code(s): R29.6 - Repeated falls Status: Acute Assessment and Plan: Frequent falls. Possibly related to orthostatic hypotension? (4) End stage renal disease: Code(s): N18.6 - End stage renal disease Status: Chronic Assessment and Plan: Per nephrology. On dialysis. (5) CAD (coronary artery disease): Qualifiers: Coronary Disease-Associated Artery/Lesion type: [place] artery [place] vs. transplanted heart: [place] heart Associated angina: without angina Qualified Code(s): I25.10 - Atherosclerotic heart disease of [place] coronary artery without angina pectoris Code(s): I25.10 - Atherosclerotic heart disease of [place] coronary artery without angina pectoris Status: Acute Assessment and Plan: Followed with [facility] 08/22: FOSTER to LAD. Left radial artery to PDA. Saphenous vein graft to obtuse marginal. Denied chest discomfort. (6) Hypotension: Qualifiers: Hypotension type: unspecified hypotension type Qualified Code(s): I95.9 - Hypotension, unspecified Code(s): I95.9 - Hypotension, unspecified Status: Acute Assessment and Plan: Continue to hold carvedilol, enalapril, nifedipine and furosemide due to BP. Terazosin discontinued by Dr. Moyer. (7) COVID-19: Code(s): U07.1 - COVID-19 Status: Acute Assessment and Plan: Tx per hospitalists. Subjective Date/time seen: 09/05/20 14:09 Interval history: Follow-up for: Atrial fibrillation with rapid ventricular response, elevated troponin, frequent falls, end-stage renal disease on hemodialysis, COVID positive Visit: 09/03/2020 Subjective: Lethargic but arousable. Chest discomfort with coughing. Breathing is ?rough?. ?Just wish the good Lord was finished with me?. Date of service 09/05/2020: Patient has no complaints, remains on O2. Answers questions with one-word answers. Telemetry shows AFib with heart rates high at times, currently 120-135 beats per minute. Echo showed normal LV function 50-55% with severe LVH, no significant valve disease. Review of Systems Constitutional: Constitutional: Reports fatigue and Reports weakness Cardiovascular: Cardiovascular: Denies chest pain and Denies pedal edema Respiratory: Respiratory: Denies dyspnea and Reports dyspnea on exertion Gastrointestinal: Gastrointestinal: Denies abdominal pain Genitourinary: Genitourinary: Denies dysuria Musculoskeletal: Musculoskeletal: Reports no additional musculoskeletal complaints Integumentary/Breasts: Skin/Breast: Reports system reviewed and no additional complaints, except as docu Neurologic: Reports confusion (Slow to respond) Psychiatric: Psychiatric: Reports confusion Exam Narrative: Exam Narrative: Patient on O2, staring out the window, very quiet and calm, does not answer questions very well. Const: General: comfortable; No in distress HENMT: General nose exam: no epistaxis Neck: Neck: no JVD Resp: Auscultation: diminished lung sounds Cardio: Rhythm: abnormal rhythm irregularly irregular GI: Inspection: non-distended GI Palp: Ye
[2020-09-05] MEDS: PRAMIPEXOLE 0.25 MG TABLET PO (14:19)
--- NOTE | 2020-09-05 15:33 | PM.IMPN ---
Progress Note: A&P Assessment and Plan (1) Elevated troponin: Code(s): R77.8 - Other specified abnormalities of plasma proteins Status: Acute Assessment and Plan: Has a mildly elevated troponin. And he has been having multiple falls. The patient has no complaints of any chest pain any only has mildly elevated troponins. Will check another 1 in the a.m.. The patient's code status is DNR. He is on a daily aspirin. 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, patient denied any associated symptoms of chest pain palpitation or dizziness prior to fall, apparently patient tripped and landed on his knee, brought to the hospital, patient was found to have atrial fibrillation with RVR patient was seen by emergency man patient was given bolus of amiodarone started the patient on drip, cardiology does not recommend to anticoagulate the patient as he has a history falling and risk of bleeding, today patient HR in 130 but he is hypotensive seen by emergency man and unable to give amiodoran, patient is also found to elevated tropes patient is seen by Cardiology and suspect most likely secondary to chronic kidney disease and stress from fall, unlikely acute coronary syndrome, there is a concern the patient may have COVID-19 and being isolated and tested patient is positive, on 09/01 discussed with the patient he does not want to be DNR and will switch him over to full code, however on 09/02 patient was quite somnolent, tachycardia nursing staff spoke with the patient's son who is his POA patient was plaed on DNR, patient seen by emergency man with tachycardia patient was started on amiodarone drip however the rate was not controlled patient was given digoxin 0.125 mg IV. on 09/03 patient was switch to oral amiodoran by emergency man rate was controlled, however today patient HR is trending up while amiodoran 200mg BID patient was seen by emergency man and increased it to 400mg BID and started lopressor 2.5mg IV PRN for better HR controlled, will continue to monitor, seen by Nephrology patient had dialysis on 09/04, , patient clinically symptoms are improving he is now on 1 L of oxygen has not had any fever if remains clinically stable rate is controlled will transfer the patient out of IMU to medical floor and may possibly to the discharge planning, Patient is clinically stable at the present remains quite somnolent. (2) Frequent falls: Code(s): R29.6 - Repeated falls Status: Acute Assessment and Plan: We have PT and OT evaluation. community relations coordinator for placement. The patient lives home alone he does have a person that comes and helps some but the patient has had multiple falls and his home and patient can no longer live in his home. Please see the home health notes that the patient has fallen several times. The patient has fallen at least 2 times the last 3 days. He just can no longer live at home. At times his blood sugar does drop low but it is typically elevated his last A1c was 10.1. (3) Essential hypertension: Code(s): I10 - Essential (primary) hypertension Status: Chronic Assessment and Plan: Continue with Coreg and enalapril (4) Insulin dependent type 2 diabetes mellitus: Code(s): E11.9 - Type 2 diabetes mellitus without complications; Z79.4 - buttermaker helper (current) use of insulin Status: Acute Assessment and Plan: His last A1c was 10.1. Accu-Cheks every 6 hours. Sliding scale early 6 hours. Typically his blood sugars do not appear to be controlled. Patient is on gabapentin for neuropathy. The patient is on high-dose sliding scale at this time. Continue with Lantus. (5) End-stage renal disease on hemodialysis: Code(s): N18.6 - End stage renal disease; Z99.2 - Dependence on
[2020-09-05 19:16] LABS: Glucose Point of Care 100 (65-105)
[2020-09-05 20:37] LABS: Glucose Point of Care 104 (65-105)
[2020-09-05] MEDS: AMIODARONE HCL 200 MG TABLET 400 MG PO (21:40)
[2020-09-05] MEDS: MELATONIN 5 MG TABLET PO (21:41)
[2020-09-05] MEDS: ATORVASTATIN 20 MG TABLET PO (21:41)
[2020-09-06] VITALS (18 sets, daily range): BP systolic 98–123; BP diastolic 57–81; PULSE 50–128; RESP 18; TEMP 36–36.9; O2SAT 90–98; BMI 10.0
[2020-09-06] MEDS: METOPROLOL TARTRATE INJ 5 MG/5 ML VIAL 2.5 MG IV PUSH ×3 (02:34→09:09)
[2020-09-06 05:44] LABS: Hematocrit 26.4 % (42.0-52.0); Hemoglobin 8.3 g/dL (14.0-18.0); Mean Corpuscular HGB Conc 31.4 g/dl (32-36); Mean Corpuscular Hemoglobin 31.3 pg (26-34); Mean Corpuscular Volume 99.6 fl (80-100); Mean Platelet Volume 10.4 fl (7.4-10.4); Platelet Count Result 308 k/mm3 (150-375); Red Blood Count 2.65 M/mm3 (4.6-6.20); Red Cell Distribution Width 13.2 % (11.5-14.5); White Blood Count 9.3 K/mm3 (4.5-10.0)
[2020-09-06 06:01] LABS: Anion Gap 10 mmol/L (8-16); Blood Urea Nitrogen 49 mg/dL (9-20); Calcium 8.3 mg/dL (8.4-10.2); Carbon Dioxide 33 mmol/L (22-30); Chloride 92 mmol/L (98-107); Estimated CRCL calculation 11 ml/min; Estimated Glomerular Filt Rate 10; Glucose 87 mg/dL (75-110); Potassium 4.1 mmol/L (3.4-5.0); Sodium 135 mmol/L (137-145)
[2020-09-06] MEDS: SEVELAMER CARBONATE 800 MG TABLET 2400 MG PO ×3 (08:07→17:29)
[2020-09-06] MEDS: CHOLECALCIFEROL 1,000 UNITS TABLET 5000 UNITS PO (08:07)
[2020-09-06] MEDS: ASPIRIN 81 MG ENTERIC TABLET PO (08:08)
[2020-09-06] MEDS: SENNA/DOCUSATE SODIUM TABLET 1 TAB PO (08:08)
[2020-09-06] MEDS: GABAPENTIN 300 MG CAPSULE PO ×2 (08:08→17:29)
[2020-09-06] MEDS: AMIODARONE HCL 200 MG TABLET 400 MG PO ×2 (08:08→20:53)
[2020-09-06] MEDS: INSULIN GLARGINE (*BKC) 100 UNITS/ML 30 UNITS SUB-Q (08:09)
[2020-09-06] MEDS: PRAMIPEXOLE 0.25 MG TABLET PO (08:09)
[2020-09-06 08:24] LABS: Glucose Point of Care 106 (65-105)
[2020-09-06 11:53] LABS: Glucose Point of Care 144 (65-105)
[2020-09-06] MEDS: METOPROLOL TARTRATE 12.5 MG TABLET PO ×2 (12:32→20:55)
--- NOTE | 2020-09-06 13:45 | PM.IMPN ---
Progress Note: A&P Assessment and Plan (1) Elevated troponin: Code(s): R77.8 - Other specified abnormalities of plasma proteins Status: Acute Assessment and Plan: Has a mildly elevated troponin. And he has been having multiple falls. The patient has no complaints of any chest pain any only has mildly elevated troponins. Will check another 1 in the a.m.. The patient's code status is DNR. He is on a daily aspirin. 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, patient denied any associated symptoms of chest pain palpitation or dizziness prior to fall, apparently patient tripped and landed on his knee, brought to the hospital, patient was found to have atrial fibrillation with RVR patient was seen by hand candy cutter patient was given bolus of amiodarone started the patient on drip, cardiology does not recommend to anticoagulate the patient as he has a history falling and risk of bleeding, today patient HR in 130 but he is hypotensive seen by hand candy cutter and unable to give amiodoran, patient is also found to elevated tropes patient is seen by Cardiology and suspect most likely secondary to chronic kidney disease and stress from fall, unlikely acute coronary syndrome, there is a concern the patient may have COVID-19 and being isolated and tested patient is positive, on 09/01 discussed with the patient he does not want to be DNR and will switch him over to full code, however on 09/02 patient was quite somnolent, tachycardia nursing staff spoke with the patient's son who is his POA patient was plaed on DNR, patient seen by hand candy cutter with tachycardia patient was started on amiodarone drip however the rate was not controlled patient was given digoxin 0.125 mg IV. on 09/03 patient was switch to oral amiodoran by hand candy cutter rate was controlled, however on 09/05 patient HR was trending up while on amiodoran 200mg BID patient was seen by hand candy cutter and increased it to 400mg BID and started lopressor 2.5mg IV PRN for better HR controlled, today patient HR still above 100s, seen by hand candy cutter and added metoprolol 12.5,mg q8, will continue to monitor, seen by Nephrology patient had dialysis on 09/04, patient clinically symptoms are improving he is now on RA has not had any fever if remains clinically stable rate is controlled will transfer the patient out of IMU to medical floor and may possibly to the discharge planning, will PT/OT to evaluate the patient, Patient is clinically stable at the present remains quite somnolent. (2) Frequent falls: Code(s): R29.6 - Repeated falls Status: Acute Assessment and Plan: We have PT and OT evaluation. accounts payable payroll coordinator for placement. The patient lives home alone he does have a person that comes and helps some but the patient has had multiple falls and his home and patient can no longer live in his home. Please see the home health notes that the patient has fallen several times. The patient has fallen at least 2 times the last 3 days. He just can no longer live at home. At times his blood sugar does drop low but it is typically elevated his last A1c was 10.1. 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 Accu-Cheks every 6 hours. Sliding scale early 6 hours. Typically his blood sugars do not appear to be controlled. Patient is on gabapentin for neuropathy. The patient is on high-dose sliding scale at this time. Continue with Lantu
[2020-09-06 16:24] LABS: Glucose Point of Care 172 (65-105)
--- NOTE | 2020-09-06 18:23 | PC.NURSE ---
This patient, Modesto Gonzalez, was received from [IMU] on 09/06/20 at 1820. Patient/family oriented to unit policies and routines
--- NOTE | 2020-09-06 18:27 | PC.NURSE ---
Patient transferred to room 322, report given to Natalie RN, all belongings sent with patient
[2020-09-06] MEDS: ATORVASTATIN 20 MG TABLET PO (20:53)
[2020-09-06] MEDS: ACETAMINOPHEN 325 MG TABLET 650 MG (20:53)
[2020-09-06] MEDS: MELATONIN 5 MG TABLET PO (20:56)
[2020-09-06 21:34] LABS: Glucose Point of Care 177 (65-105)
[2020-09-07] VITALS (26 sets, daily range): BP systolic 96–130; BP diastolic 32–78; PULSE 60–131; RESP 16–20; TEMP 36.4–37.8; O2SAT 91–96
[2020-09-07] MEDS: METOPROLOL TARTRATE 12.5 MG TABLET PO ×3 (03:20→21:23)
[2020-09-07 07:49] LABS: Hematocrit 25.9 % (42.0-52.0); Hemoglobin 8.2 g/dL (14.0-18.0); Mean Corpuscular HGB Conc 31.7 g/dl (32-36); Mean Corpuscular Hemoglobin 31.8 pg (26-34); Mean Corpuscular Volume 100.4 fl (80-100); Mean Platelet Volume 10.2 fl (7.4-10.4); Platelet Count Result 326 k/mm3 (150-375); Red Blood Count 2.58 M/mm3 (4.6-6.20); Red Cell Distribution Width 13.2 % (11.5-14.5); White Blood Count 8.9 K/mm3 (4.5-10.0)
[2020-09-07 08:11] LABS: Anion Gap 8 mmol/L (8-16); Blood Urea Nitrogen 61 mg/dL (9-20); Calcium 8.1 mg/dL (8.4-10.2); Carbon Dioxide 34 mmol/L (22-30); Chloride 91 mmol/L (98-107); Estimated CRCL calculation 9 ml/min; Estimated Glomerular Filt Rate 8; Glucose 216 mg/dL (75-110); Potassium 4.1 mmol/L (3.4-5.0); Sodium 133 mmol/L (137-145)
[2020-09-07] MEDS: INSULIN ASPART (*BKC) 100 UNITS/ML SUB-Q (08:35)
[2020-09-07] MEDS: SEVELAMER CARBONATE 800 MG TABLET 2400 MG PO ×3 (08:36→21:21)
[2020-09-07] MEDS: CHOLECALCIFEROL 1,000 UNITS TABLET 5000 UNITS PO (08:37)
[2020-09-07] MEDS: AMIODARONE HCL 200 MG TABLET 400 MG PO ×2 (08:37→21:22)
[2020-09-07] MEDS: GABAPENTIN 300 MG CAPSULE PO ×2 (08:37→18:08)
[2020-09-07] MEDS: INSULIN GLARGINE (*BKC) 100 UNITS/ML 30 UNITS SUB-Q (08:38)
[2020-09-07] MEDS: PRAMIPEXOLE 0.25 MG TABLET PO (08:38)
[2020-09-07] MEDS: ASPIRIN 81 MG ENTERIC TABLET PO (08:38)
[2020-09-07] MEDS: SENNA/DOCUSATE SODIUM TABLET 1 TAB PO (08:38)
[2020-09-07 09:28] LABS: Glucose Point of Care 232 (65-105)
--- NOTE | 2020-09-07 10:08 | P.PNNP_ITS ---
Progress Note: A&P Assessment and Plan (1) End stage renal disease: Code(s): N18.6 - End stage renal disease Status: Chronic Assessment and Plan: * Due for dialysis today * Volume status looks okay. * Will try for 1 or 2L today. * He is not eating very well. (2) Frequent falls: Code(s): R29.6 - Repeated falls Status: Acute Assessment and Plan: * etiology? - due to orthostatic hypotension? * noted numerous falls as per Home Health * PT/OT in progress * Still very weak. (3) Person under investigation for COVID-19: Code(s): Z20.828 - Contact with and (suspected) exposure to other viral communicable diseases Status: Acute Assessment and Plan: * Is positive. * Supportive care (4) Atrial fibrillation: Code(s): I48.91 - Unspecified atrial fibrillation Status: Acute Assessment and Plan: * as noted today * Cardiology following * not a candidate for anticoagulation (due to falls) * Heart rate is still somewhat high * on amiodarone and metoprolol. (5) Essential hypertension: Code(s): I10 - Essential (primary) hypertension Status: Chronic Assessment and Plan: * issues with hypotension noted * Blood pressure is doing well off meds. (6) Anemia: Code(s): D64.9 - Anemia, unspecified Status: Acute Assessment and Plan: * in range for ESRD * Epogen with HD * Hemoglobin is dropping. Increased EPO dose. (7) Diabetes: Code(s): E11.9 - Type 2 diabetes mellitus without complications Status: Chronic Assessment and Plan: * follows with Endocrinology * follow accuchecks * on Lantus and SSI Subjective Date/time seen: 09/07/20 10:08 Interval history: Patient is comfortable lying in bed He is coughing a little today. No shortness of breath Exam Narrative: Exam Narrative: General: WD/WN male in NAD Heart: IRRR, tachycardic, normal S1 and S2; no rub Lungs: decreased at bases Abdomen: BS+ nontender and soft Extremities: no edema Skin: No rash or subcu nodules Objective Data Vital Signs Vital Signs: Vital Signs - 24 hr 09/06/20 12:00 09/06/20 16:00 09/06/20 18:20 Temperature 36.0 C L 36.6 C 36.5 C Pulse Rate 124 H 115 H 83 Respiratory Rate 18 18 18 Blood Pressure 107/60 98/74 L 113/81 Pulse Oximetry 95 93 96 09/06/20 20:00 09/06/20 20:53 09/06/20 20:55 Temperature 36.9 C Pulse Rate 108 H 64 64 Respiratory Rate 18 Blood Pressure 104/57 L Pulse Oximetry 90 09/06/20 22:20 09/07/20 00:00 09/07/20 03:20 Temperature 36.4 C L Pulse Rate 118 H 97 Respiratory Rate 16 Blood Pressure 100/40 L Pulse Oximetry 93 93 09/07/20 04:00 09/07/20 08:00 09/07/20 08:37 Temperature 36.5 C 36.5 C Pulse Rate 106 H 112 H 115 H Respiratory Rate 18 16 Blood Pressure 100/78 105/69 Pulse Oximetry 95 91 Intake/Output Intake/Output: Intake & Output 09/04/20 09/05/20 09/06/20 09/07/20 23:59 23:59 23:59 23:59 Intake Total 317 431 0074 300 Output Total 0 0 Balance 149 303 7956 300 Me
--- NOTE | 2020-09-07 10:08 | PM.PNNEP ---
Progress Note: A&P Assessment and Plan (1) End stage renal disease: Code(s): N18.6 - End stage renal disease Status: Chronic Assessment and Plan: Due for dialysis today Volume status looks okay. Will try for 1 or 2L today. He is not eating very well. (2) Frequent falls: Code(s): R29.6 - Repeated falls Status: Acute Assessment and Plan: etiology? - due to orthostatic hypotension? noted numerous falls as per Home Health PT/OT in progress Still very weak. (3) Person under investigation for COVID-19: Code(s): Z20.828 - Contact with and (suspected) exposure to other viral communicable diseases Status: Acute Assessment and Plan: Is positive. Supportive care (4) Atrial fibrillation: Code(s): I48.91 - Unspecified atrial fibrillation Status: Acute Assessment and Plan: as noted today Cardiology following not a candidate for anticoagulation (due to falls) Heart rate is still somewhat high on amiodarone and metoprolol. (5) Essential hypertension: Code(s): I10 - Essential (primary) hypertension Status: Chronic Assessment and Plan: issues with hypotension noted Blood pressure is doing well off meds. (6) Anemia: Code(s): D64.9 - Anemia, unspecified Status: Acute Assessment and Plan: in range for ESRD Epogen with HD Hemoglobin is dropping. Increased EPO dose. (7) Diabetes: Code(s): E11.9 - Type 2 diabetes mellitus without complications Status: Chronic Assessment and Plan: follows with Endocrinology follow accuchecks on Lantus and SSI Subjective Date/time seen: 09/07/20 10:08 Interval history: Patient is comfortable lying in bed He is coughing a little today. No shortness of breath Exam Narrative: Exam Narrative: General: WD/WN male in NAD Heart: IRRR, tachycardic, normal S1 and S2; no rub Lungs: decreased at bases Abdomen: BS+ nontender and soft Extremities: no edema Skin: No rash or subcu nodules Objective Data Vital Signs Vital Signs: Vital Signs - 24 hr 09/06/20 12:00 09/06/20 16:00 09/06/20 18:20 Temperature 36.0 C L 36.6 C 36.5 C Pulse Rate 124 H 115 H 83 Respiratory Rate 18 18 18 Blood Pressure 107/60 98/74 L 113/81 Pulse Oximetry 95 93 96 09/06/20 20:00 09/06/20 20:53 09/06/20 20:55 Temperature 36.9 C Pulse Rate 108 H 64 64 Respiratory Rate 18 Blood Pressure 104/57 L Pulse Oximetry 90 09/06/20 22:20 09/07/20 00:00 09/07/20 03:20 Temperature 36.4 C L Pulse Rate 118 H 97 Respiratory Rate 16 Blood Pressure 100/40 L Pulse Oximetry 93 93 09/07/20 04:00 09/07/20 08:00 09/07/20 08:37 Temperature 36.5 C 36.5 C Pulse Rate 106 H 112 H 115 H Respiratory Rate 18 16 Blood Pressure 100/78 105/69 Pulse Oximetry 95 91 Intake/Output Intake/Output: Intake & Output 09/04/20 09/05/20 09/06/20 09/07/20 23:59 23:59 23:59 23:59 Intake Total 959 547 5824 300 Output Total 0 0 Balance 596 028 1949 300 Meds/Results Medications: Active Medications Generic Name Dose Route Start Last Admin Trade Name Freq PRN Reason Stop Dose Admin Acetaminophen 650 mg 09/06/20 20:45 Acetaminophen 325 Mg Tablet PO Q4H PRN Headache Amiodarone HCl 400 mg 09/05/20 21:00 09/07/20 08:37 Amiodarone Hcl 200 Mg Tablet PO 400 mg Q12HR DIOGENES Administration Aspirin 81 mg 08/31/20 09:00 09/07/20 08:38 Aspirin 81 Mg Enteric Tablet PO 81 mg DAILY DIOGENES Administration Atorvastatin Calcium 20 mg 08/30/20 22:50 09/06/20 20:53 Atorvastatin 20 Mg Tablet PO 20 mg HS DIOGENES Administration Dextrose 12.5 gm 08/30/20 18:50 Dextrose 50% 25 Gm/50 Ml Syringe IV PUSH PRN PRN Hypoglycemia Protocol Epoetin Homar-epbx 20,000 units 09/04/20 16:00 09/04/20 18:58 Epoetin Homar-Epbx 20,000 Units/Ml Vial IV PUSH 20,000 units TuThSa@1600 [facility] Administra
[2020-09-07 13:01] LABS: Glucose Point of Care 153 (65-105)
[2020-09-07] MEDS: ACETAMINOPHEN 325 MG TABLET 650 MG PO (13:32)
--- NOTE | 2020-09-07 14:52 | PM.IMPN ---
Progress Note: A&P Assessment and Plan (1) Elevated troponin: Code(s): R77.8 - Other specified abnormalities of plasma proteins Status: Acute Assessment and Plan: Has a mildly elevated troponin. And he has been having multiple falls. The patient has no complaints of any chest pain any only has mildly elevated troponins. Will check another 1 in the a.m.. The patient's code status is DNR. He is on a daily aspirin. 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, patient denied any associated symptoms of chest pain palpitation or dizziness prior to fall, apparently patient tripped and landed on his knee, brought to the hospital, patient was found to have atrial fibrillation with RVR patient was seen by insurance underwriter sales patient was given bolus of amiodarone started the patient on drip, cardiology does not recommend to anticoagulate the patient as he has a history falling and risk of bleeding, today patient HR in 130 but he is hypotensive seen by insurance underwriter sales and unable to give amiodoran, patient is also found to elevated tropes patient is seen by Cardiology and suspect most likely secondary to chronic kidney disease and stress from fall, unlikely acute coronary syndrome, there is a concern the patient may have COVID-19 and being isolated and tested patient is positive, on 09/01 discussed with the patient he does not want to be DNR and will switch him over to full code, however on 09/02 patient was quite somnolent, tachycardia nursing staff spoke with the patient's son who is his POA patient was plaed on DNR, patient seen by insurance underwriter sales with tachycardia patient was started on amiodarone drip however the rate was not controlled patient was given digoxin 0.125 mg IV. on 09/03 patient was switch to oral amiodoran by insurance underwriter sales rate was controlled, however on 09/05 patient HR was trending up while on amiodoran 200mg BID patient was seen by insurance underwriter sales and increased it to 400mg BID and started lopressor 2.5mg IV PRN for better HR controlled, today patient HR still above 100s, seen by insurance underwriter sales and added metoprolol 12.5,mg q8, will continue to monitor, seen by Nephrology patient had dialysis on 09/04, 09/06 patient was doing well on room air and transferred out of IMU to medical floor, today patient states is feeling much better even sounds better, still on room air, and has no fever, seen by Nephrology will have dialysis today, his heart rate is improving now close to 100, patient be seen by insurance underwriter sales, patient is encouraged to participate in physical therapy, once clinically stable will do the discharge planning. (2) Frequent falls: Code(s): R29.6 - Repeated falls Status: Acute Assessment and Plan: We have PT and OT evaluation. charge coordinator for placement. The patient lives home alone he does have a person that comes and helps some but the patient has had multiple falls and his home and patient can no longer live in his home. Please see the home health notes that the patient has fallen several times. The patient has fallen at least 2 times the last 3 days. He just can no longer live at home. At times his blood sugar does drop low but it is typically elevated his last A1c was 10.1. (3) Essential hypertension: Code(s): I10 - Essential (primary) hypertension Status: Chronic Assessment and Plan: Continue with Coreg and enalapril (4) Insulin dependent type 2 diabetes mellitus: Code(s): E11.9 - Type 2 diabetes mellitus without complications; Z79.4 - senior living (current) use of insulin Status: Acute Assessment and Plan: His last A1c was 10.1. Accu-Cheks every 6 hours. Sliding scale early 6 hours. Typically his blood sugars do not appear to be controlled. Patient is on gabapentin for n
--- NOTE | 2020-09-07 15:35 | PM.PNCARD ---
Progress Note: A&P Assessment and Plan (1) New onset atrial fibrillation: Code(s): I48.91 - Unspecified atrial fibrillation Status: Acute Assessment and Plan: He is not an anticoagulation candidate due to frequent falls. Heart rate is reasonably controlled on amiodarone 400 mg q12 H, and metoprolol 12.5 mg q.8 hours. Will follow intermittently and likely reduce the dose of amiodarone in a few days. OK to discontinue telemetry. (2) Elevated troponin: Code(s): R77.8 - Other specified abnormalities of plasma proteins Status: Acute Assessment and Plan: This is not related to ACS. (3) Frequent falls: Code(s): R29.6 - Repeated falls Status: Acute Assessment and Plan: Frequent falls. Possibly related to orthostatic hypotension? (4) End stage renal disease: Code(s): N18.6 - End stage renal disease Status: Chronic Assessment and Plan: On dialysis. Still getting IV Lasix however. Management per Dr. Moyer. (5) CAD (coronary artery disease): Qualifiers: Coronary Disease-Associated Artery/Lesion type: [place] artery [place] vs. transplanted heart: saxman heart Associated angina: without angina Qualified Code(s): I25.10 - Atherosclerotic heart disease of saxman coronary artery without angina pectoris Code(s): I25.10 - Atherosclerotic heart disease of saxman coronary artery without angina pectoris Status: Acute Assessment and Plan: Followed with [facility]. CABG 2010. Stable CAD. Continue aspirin, statin, beta-lucina (6) Hypotension: Qualifiers: Hypotension type: unspecified hypotension type Qualified Code(s): I95.9 - Hypotension, unspecified Code(s): I95.9 - Hypotension, unspecified Status: Acute Assessment and Plan: Terazosin discontinued by Dr. Moyer. (7) COVID-19: Code(s): U07.1 - COVID-19 Status: Acute Assessment and Plan: Tx per hospitalists. Subjective Date/time seen: 09/07/20 15:35 Interval history: Follow-up for: Atrial fibrillation with rapid ventricular response, elevated troponin, frequent falls, end-stage renal disease on hemodialysis, COVID positive 09/03/2020 Subjective: Lethargic but arousable. Chest discomfort with coughing. Breathing is ?rough?. ?Just wish the good Lord was finished with me?. 09/05/2020: Patient has no complaints, remains on O2. Answers questions with one-word answers. Telemetry shows AFib with heart rates high at times, currently 120-135 beats per minute. Echo showed normal LV function 50-55% with severe LVH, no significant valve disease. Increased amiodarone to 400 mg b.i.d. and increased metoprolol. Date of service 09/07/2020: Patient remains lethargic. Apparently has no complaints. Telemetry shows AFib rate 90-110 beats per minute. Review of Systems Review of Systems: ROS unobtainable: Yes unobtainable due to mental status Constitutional: Constitutional: Reports weakness ENT: Denies epistaxis Cardiovascular: Cardiovascular: Denies chest pain Respiratory: Respiratory: Denies dyspnea Gastrointestinal: Gastrointestinal: Denies abdominal pain Genitourinary: Genitourinary: Denies hematuria Musculoskeletal: Musculoskeletal: Reports no additional musculoskeletal complaints Exam Const: General: comfortable and no acute distress HENMT: General nose exam: Normal nares present and no epistaxis Eyes: General: appearance normal, both eyes and all related structures Neck: Thyroid: thyroid normal Resp: Effort & Inspection: normal respiratory effort Cardio: Rhythm: abnormal rhythm irregularly irregular GI: Inspection: non-distended Skin: General skin exam: normal color Neur
[2020-09-07 19:01] LABS: Glucose Point of Care 93 (65-105)
[2020-09-07] MEDS: ATORVASTATIN 20 MG TABLET PO (21:24)
[2020-09-07] MEDS: MELATONIN 5 MG TABLET PO (21:24)
[2020-09-07 21:38] LABS: Glucose Point of Care 76 (65-105)
[2020-09-08] VITALS (9 sets, daily range): BP systolic 101–117; BP diastolic 49–71; PULSE 83–128; RESP 16–18; TEMP 36.2–37; O2SAT 93–97; BMI 22.8
[2020-09-08] MEDS: METOPROLOL TARTRATE 12.5 MG TABLET PO ×3 (04:32→20:03)
[2020-09-08 06:54] LABS: Hematocrit 26.8 % (42.0-52.0); Hemoglobin 8.6 g/dL (14.0-18.0); Mean Corpuscular HGB Conc 32.1 g/dl (32-36); Mean Corpuscular Hemoglobin 31.7 pg (26-34); Mean Corpuscular Volume 98.9 fl (80-100); Platelet Count Result 309 k/mm3 (150-375); Red Blood Count 2.71 M/mm3 (4.6-6.20); Red Cell Distribution Width 13.1 % (11.5-14.5); White Blood Count 9.5 K/mm3 (4.5-10.0)
[2020-09-08 07:11] LABS: Anion Gap 6 mmol/L (8-16); Blood Urea Nitrogen 35 mg/dL (9-20); Carbon Dioxide 33 mmol/L (22-30); Chloride 96 mmol/L (98-107); Estimated CRCL calculation 16 ml/min; Estimated Glomerular Filt Rate 14; Glucose 89 mg/dL (75-110); Sodium 135 mmol/L (137-145)
--- NOTE | 2020-09-08 08:23 | PCSTNOTE ---
This note is a late entry from September 03. This therapist entered patient room in an attempt to complete a Speech Therapy session. Therapist requested patient to participate in swallowing strengthening exercises. Patient shook head no and closed eyes, however when therapist stopped talking, the patient would vocalize, then when therapist re-engaged, patient closed eyes and would not participate. This happened more than three times with no success. Therapist terminated session. No charge session.
--- NOTE | 2020-09-08 11:35 | P.PNNP_ITS ---
Progress Note: A&P Assessment and Plan (1) End stage renal disease: Code(s): N18.6 - End stage renal disease Status: Chronic Assessment and Plan: * Due for dialysis today * Volume status looks okay. * Will try for 1 or 2L today. * He is not eating very well. (2) Frequent falls: Code(s): R29.6 - Repeated falls Status: Acute Assessment and Plan: * etiology? - due to orthostatic hypotension? * noted numerous falls as per Home Health * PT/OT in progress * Still very weak. (3) Person under investigation for COVID-19: Code(s): Z20.828 - Contact with and (suspected) exposure to other viral communicable diseases Status: Acute Assessment and Plan: * Is positive. * Supportive care (4) Atrial fibrillation: Code(s): I48.91 - Unspecified atrial fibrillation Status: Acute Assessment and Plan: * as noted today * Cardiology following * not a candidate for anticoagulation (due to falls) * Heart rate has been better, 90s or so. * on amiodarone and metoprolol. (5) Essential hypertension: Code(s): I10 - Essential (primary) hypertension Status: Chronic Assessment and Plan: * Blood pressure is doing well off meds. (6) Anemia: Code(s): D64.9 - Anemia, unspecified Status: Acute Assessment and Plan: * in range for ESRD * Epogen with HD * Hemoglobin is dropping. Increased EPO dose. (7) Diabetes: Code(s): E11.9 - Type 2 diabetes mellitus without complications Status: Chronic Assessment and Plan: * follows with Endocrinology * follow accuchecks * on Lantus and SSI Subjective Date/time seen: 09/08/20 11:35 Interval history: Patient is comfortable lying in bed hungry to eat. I asked nursing to order him some food. no cough. No shortness of breath Exam Narrative: Exam Narrative: General: WD/WN male in NAD Heart: IRRR, tachycardic, normal S1 and S2; no rub Lungs: decreased at bases Abdomen: BS+ nontender and soft Extremities: no edema or cyanosis. Skin: No rash or subcu nodules Objective Data Vital Signs Vital Signs: Vital Signs - 24 hr 09/07/20 12:00 09/07/20 13:32 09/07/20 16:38 Temperature 36.4 C 36.4 C Pulse Rate 96 100 82 Respiratory Rate 16 16 Blood Pressure 107/52 L 116/35 L Pulse Oximetry 94 96 09/07/20 17:16 09/07/20 17:30 09/07/20 17:45 Temperature Pulse Rate 89 95 112 H Respiratory Rate Blood Pressure 104/52 L 100/41 L 98/52 L Pulse Oximetry 09/07/20 18:00 09/07/20 18:15 09/07/20 18:30 Temperature Pulse Rate 117 H 131 H 110 H Respiratory Rate Blood Pressure 121/59 L 118/47 L 112/51 L Pulse Oximetry 09/07/20 18:45 09/07/20 19:00 09/07/20 19:15 Temperature Pulse Rate 70 80 106 H Respiratory Rate Blood Pressure 128/32 L 116/51 L 130/36 L Pulse Oximetry 09/07/20 19:30 09/07/20 19:45 09/07/20 20:00 Temperature 37.1 C Pulse Rate 66 120 H 86 Respiratory Rate 20 Blood Pressure 111/42 L 96/62 L 117/48 L Pulse Oximetry 96
--- NOTE | 2020-09-08 11:35 | PM.PNNEP ---
Progress Note: A&P Assessment and Plan (1) End stage renal disease: Code(s): N18.6 - End stage renal disease Status: Chronic Assessment and Plan: Due for dialysis today Volume status looks okay. Will try for 1 or 2L today. He is not eating very well. (2) Frequent falls: Code(s): R29.6 - Repeated falls Status: Acute Assessment and Plan: etiology? - due to orthostatic hypotension? noted numerous falls as per Home Health PT/OT in progress Still very weak. (3) Person under investigation for COVID-19: Code(s): Z20.828 - Contact with and (suspected) exposure to other viral communicable diseases Status: Acute Assessment and Plan: Is positive. Supportive care (4) Atrial fibrillation: Code(s): I48.91 - Unspecified atrial fibrillation Status: Acute Assessment and Plan: as noted today Cardiology following not a candidate for anticoagulation (due to falls) Heart rate has been better, 90s or so. on amiodarone and metoprolol. (5) Essential hypertension: Code(s): I10 - Essential (primary) hypertension Status: Chronic Assessment and Plan: Blood pressure is doing well off meds. (6) Anemia: Code(s): D64.9 - Anemia, unspecified Status: Acute Assessment and Plan: in range for ESRD Epogen with HD Hemoglobin is dropping. Increased EPO dose. (7) Diabetes: Code(s): E11.9 - Type 2 diabetes mellitus without complications Status: Chronic Assessment and Plan: follows with Endocrinology follow accuchecks on Lantus and SSI Subjective Date/time seen: 09/08/20 11:35 Interval history: Patient is comfortable lying in bed hungry to eat. I asked nursing to order him some food. no cough. No shortness of breath Exam Narrative: Exam Narrative: General: WD/WN male in NAD Heart: IRRR, tachycardic, normal S1 and S2; no rub Lungs: decreased at bases Abdomen: BS+ nontender and soft Extremities: no edema or cyanosis. Skin: No rash or subcu nodules Objective Data Vital Signs Vital Signs: Vital Signs - 24 hr 09/07/20 12:00 09/07/20 13:32 09/07/20 16:38 Temperature 36.4 C 36.4 C Pulse Rate 96 100 82 Respiratory Rate 16 16 Blood Pressure 107/52 L 116/35 L Pulse Oximetry 94 96 09/07/20 17:16 09/07/20 17:30 09/07/20 17:45 Temperature Pulse Rate 89 95 112 H Respiratory Rate Blood Pressure 104/52 L 100/41 L 98/52 L Pulse Oximetry 09/07/20 18:00 09/07/20 18:15 09/07/20 18:30 Temperature Pulse Rate 117 H 131 H 110 H Respiratory Rate Blood Pressure 121/59 L 118/47 L 112/51 L Pulse Oximetry 09/07/20 18:45 09/07/20 19:00 09/07/20 19:15 Temperature Pulse Rate 70 80 106 H Respiratory Rate Blood Pressure 128/32 L 116/51 L 130/36 L Pulse Oximetry 09/07/20 19:30 09/07/20 19:45 09/07/20 20:00 Temperature 37.1 C Pulse Rate 66 120 H 86 Respiratory Rate 20 Blood Pressure 111/42 L 96/62 L 117/48 L Pulse Oximetry 96 09/07/20 20:15 09/07/20 20:25 09/07/20 20:27 Temperature 36.6 C Pulse Rate 79 79 100 Respiratory Rate 18 Blood Pressure 107/51 L 119/53 L 117/47 L Pulse Oximetry 09/07/20 21:22 09/07/20 21:23 09/08/20 00:00 Temperature 37.0 C Pulse Rate 60 60 83 Respiratory Rate 18 Blood Pressure 110/49 L Pulse Oximetry 97 09/08/20 04:00 09/08/20 04:32 09/08/20 08:00 Temperature 36.6 C 36.2 C L Pulse Rate 94 93 94 Respiratory Rate 18 16 Blood Pressure 101/63 102/71 Pulse Oximetry 93 96 Intake/Output Intake/Output: Intake & Output 09/05/20 09/06/20 09/07/20 09/08/20 23:59 23:59 23:59 23:59 Intake Total 300 1280 780 120 Output Total 1000 0 Balance 300 1280 -220 120 Meds/Results Medications: Active Medications Generic Name Dose Route Start Last Admin Trade Name Freq PRN Reason Stop Dose Admin Acetaminophen 650 mg 09/06/20 20:45 09/07/20 13:32
[2020-09-08] MEDS: ASPIRIN 81 MG ENTERIC TABLET PO (11:57)
[2020-09-08] MEDS: SENNA/DOCUSATE SODIUM TABLET 1 TAB PO (11:57)
[2020-09-08] MEDS: AMIODARONE HCL 200 MG TABLET 400 MG PO ×2 (11:58→20:03)
[2020-09-08] MEDS: SEVELAMER CARBONATE 800 MG TABLET 2400 MG PO ×3 (11:58→17:44)
[2020-09-08] MEDS: CHOLECALCIFEROL 1,000 UNITS TABLET 5000 UNITS PO (11:59)
[2020-09-08] MEDS: GABAPENTIN 300 MG CAPSULE PO ×2 (11:59→17:44)
[2020-09-08 12:13] LABS: Glucose Point of Care 96 (65-105)
[2020-09-08] MEDS: PRAMIPEXOLE 0.25 MG TABLET PO (12:18)
[2020-09-08 12:30] LABS: Glucose Point of Care 197 (65-105)
--- NOTE | 2020-09-08 14:21 | PM.IMPN ---
Progress Note: A&P Assessment and Plan (1) Elevated troponin: Code(s): R77.8 - Other specified abnormalities of plasma proteins Status: Acute Assessment and Plan: Has a mildly elevated troponin. And he has been having multiple falls. The patient has no complaints of any chest pain any only has mildly elevated troponins. Will check another 1 in the a.m.. The patient's code status is DNR. He is on a daily aspirin. 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, patient denied any associated symptoms of chest pain palpitation or dizziness prior to fall, apparently patient tripped and landed on his knee, brought to the hospital, patient was found to have atrial fibrillation with RVR patient was seen by logistics planning engineer patient was given bolus of amiodarone started the patient on drip, cardiology does not recommend to anticoagulate the patient as he has a history falling and risk of bleeding, today patient HR in 130 but he is hypotensive seen by logistics planning engineer and unable to give amiodoran, patient is also found to elevated tropes patient is seen by Cardiology and suspect most likely secondary to chronic kidney disease and stress from fall, unlikely acute coronary syndrome, there is a concern the patient may have COVID-19 and being isolated and tested patient is positive, on 09/01 discussed with the patient he does not want to be DNR and will switch him over to full code, however on 09/02 patient was quite somnolent, tachycardia nursing staff spoke with the patient's son who is his POA patient was plaed on DNR, patient seen by logistics planning engineer with tachycardia patient was started on amiodarone drip however the rate was not controlled patient was given digoxin 0.125 mg IV. on 09/03 patient was switch to oral amiodoran by logistics planning engineer rate was controlled, however on 09/05 patient HR was trending up while on amiodoran 200mg BID patient was seen by logistics planning engineer and increased it to 400mg BID and started lopressor 2.5mg IV PRN for better HR controlled, today patient HR still above 100s, seen by logistics planning engineer and added metoprolol 12.5,mg q8, will continue to monitor, seen by Nephrology patient had dialysis on 09/04, 09/06 patient was doing well on room air and transferred out of IMU to medical floor, today patient states is feeling much better even sounds better, still on room air, and has no fever, seen by Nephrology will have dialysis, on 09/07 his heart rate was improving close to 100, today 09/08 his HR is less than 100, he has no fever and is on room air, patient wii be seen by logistics planning engineer, patient is encouraged to participate in physical therapy, patient will have dialysis tomorrow, if patient remains clinically stayed no fever not requiring any oxygen will do the discharge planning. (2) Frequent falls: Code(s): R29.6 - Repeated falls Status: Acute Assessment and Plan: We have PT and OT evaluation. billing and insurance coordinator for placement. The patient lives home alone he does have a person that comes and helps some but the patient has had multiple falls and his home and patient can no longer live in his home. Please see the home health notes that the patient has fallen several times. The patient has fallen at least 2 times the last 3 days. He just can no longer live at home. At times his blood sugar does drop low but it is typically elevated his last A1c was 10.1. (3) Essential hypertension: Code(s): I10 - Essential (primary) hypertension Status: Chronic Assessment and Plan: Continue with Coreg and enalapril (4) Insulin dependent type 2 diabetes mellitus: Code(s): E11.9 - Type 2 diabetes mellitus without complications; Z79.4 - [facility] (current) use of insulin Status: Acute Assessment and Plan: His la
--- NOTE | 2020-09-08 15:32 | PCOTNOTE ---
The OT treatment session was unable to be completed today, will continue plan of care tomorrow, 09/09/2020.
[2020-09-08] MEDS: INSULIN ASPART (*BKC) 100 UNITS/ML SUB-Q (17:43)
[2020-09-08 17:58] LABS: Glucose Point of Care 233 (65-105)
[2020-09-08] MEDS: MELATONIN 5 MG TABLET PO (20:03)
[2020-09-08] MEDS: ATORVASTATIN 20 MG TABLET PO (20:03)
[2020-09-08 21:02] LABS: Glucose Point of Care 197 (65-105)
[2020-09-09] VITALS (27 sets, daily range): BP systolic 84–130; BP diastolic 29–75; PULSE 60–122; RESP 16–20; TEMP 36.3–37; O2SAT 93–100
[2020-09-09] MEDS: METOPROLOL TARTRATE 12.5 MG TABLET PO ×3 (04:55→20:26)
[2020-09-09 06:18] LABS: Hematocrit 25.5 % (42.0-52.0); Mean Corpuscular HGB Conc 31.4 g/dl (32-36); Mean Corpuscular Volume 98.8 fl (80-100); Mean Platelet Volume 9.6 fl (7.4-10.4); Platelet Count Result 361 k/mm3 (150-375); Red Blood Count 2.58 M/mm3 (4.6-6.20); Red Cell Distribution Width 12.9 % (11.5-14.5); White Blood Count 11.4 K/mm3 (4.5-10.0)
[2020-09-09 06:31] LABS: Albumin Level 2.6 g/dL (3.5-5.1); Anion Gap 9 mmol/L (8-16); Blood Urea Nitrogen 44 mg/dL (9-20); Calcium 8.1 mg/dL (8.4-10.2); Carbon Dioxide 34 mmol/L (22-30); Chloride 90 mmol/L (98-107); Estimated CRCL calculation 11 ml/min; Estimated Glomerular Filt Rate 10; Glucose 287 mg/dL (75-110); Phosphorus 3.4 mg/dL (2.5-4.5); Potassium 4.3 mmol/L (3.4-5.0); Sodium 133 mmol/L (137-145)
--- NOTE | 2020-09-09 07:57 | PCOTNOTE ---
Patient unavailable for OT treatment, in dialysis in room. Will attempt again later today if possible or continue plan of care tomorrow, 09/10/2020.
[2020-09-09] MEDS: PRAMIPEXOLE 0.25 MG TABLET PO (09:07)
[2020-09-09] MEDS: SEVELAMER CARBONATE 800 MG TABLET 2400 MG PO ×3 (09:07→17:38)
[2020-09-09 09:10] LABS: Glucose Point of Care 185 (65-105)
[2020-09-09] MEDS: CHOLECALCIFEROL 1,000 UNITS TABLET 5000 UNITS PO (09:10)
[2020-09-09] MEDS: AMIODARONE HCL 200 MG TABLET 400 MG PO ×2 (09:11→20:28)
[2020-09-09] MEDS: ASPIRIN 81 MG ENTERIC TABLET PO (09:11)
[2020-09-09] MEDS: SENNA/DOCUSATE SODIUM TABLET 1 TAB PO (09:11)
[2020-09-09] MEDS: GABAPENTIN 300 MG CAPSULE PO ×2 (09:11→17:38)
[2020-09-09] MEDS: INSULIN GLARGINE (*BKC) 100 UNITS/ML 30 UNITS SUB-Q (09:13)
--- NOTE | 2020-09-09 09:36 | ECG_ITS ---
Measurements Intervals [place] Rate: 129 P: ME: 0 QRS: -29 QRSD: 100 T: 134 QT: 343 QTc: 502 Interpretive Statements ATRIAL FIBRILLATION WITH RAPID VENTRICULAR RESPONSE LEFT VENTRICULAR HYPERTROPHY WITH ST-T CHANGE POOR R WAVE PROGRESSION, ANTERIOR LEADS ST-T WAVE ABNORMALITY IN HIGH LATERAL LEADS- CONSIDER ISCHEMIA BASELINE ARTIFACT- I, II, III, AVL ABNORMAL ECG Electronically Signed On 09-09-2020 13:35:04 [employer] by Guille Louis D.O.
--- NOTE | 2020-09-09 10:18 | P.PNNP_ITS ---
Progress Note: A&P Assessment and Plan (1) End stage renal disease: Code(s): N18.6 - End stage renal disease Status: Chronic Assessment and Plan: * Getting dialysis now. * Volume status looks okay. * Will slow the blood flow and reduce fluid off for the duration of the dialysis. * He is not eating very well. (2) Frequent falls: Code(s): R29.6 - Repeated falls Status: Acute Assessment and Plan: * etiology? - due to orthostatic hypotension? * noted numerous falls as per Home Health * PT/OT in progress * Still very weak. (3) Person under investigation for COVID-19: Code(s): Z20.828 - Contact with and (suspected) exposure to other viral communicable diseases Status: Acute Assessment and Plan: * Is positive. * Supportive care (4) Atrial fibrillation: Code(s): I48.91 - Unspecified atrial fibrillation Status: Acute Assessment and Plan: * as noted today * Cardiology following * not a candidate for anticoagulation (due to falls) * Heart rate has been better, 90s or so. * on amiodarone and metoprolol. (5) Essential hypertension: Code(s): I10 - Essential (primary) hypertension Status: Chronic Assessment and Plan: * Blood pressure is doing well off meds. (6) Anemia: Code(s): D64.9 - Anemia, unspecified Status: Acute Assessment and Plan: * in range for ESRD * Epogen with HD * Hemoglobin has plateaued in the 8s. (7) Diabetes: Code(s): E11.9 - Type 2 diabetes mellitus without complications Status: Chronic Assessment and Plan: * follows with Endocrinology * follow accuchecks * on Lantus and SSI Subjective Date/time seen: 09/09/20 10:18 Interval history: Patient is comfortable lying in bed He is on dialysis and tolerating it well. He was seen at 9:45 a.m.. He had a brief episode (1-2 minutes) of chest pain. It was somewhat sharp. He pointed and a very small area about the size of a quarter at the left lower sternal border. This area is not tender. no cough. No shortness of breath Exam Narrative: Exam Narrative: General: WD/WN male in NAD Heart: IRRR, tachycardic, normal S1 and S2; no rub Lungs: decreased at bases. No chest tenderness. Abdomen: BS+ nontender and soft Extremities: no edema or cyanosis. Skin: No rash or subcu nodules Objective Data Vital Signs Vital Signs: Vital Signs - 24 hr 09/08/20 11:48 09/08/20 11:57 09/08/20 11:58 Temperature 36.3 C L Pulse Rate 86 86 86 Respiratory Rate 16 Blood Pressure 117/68 Pulse Oximetry 95 09/08/20 16:00 09/08/20 20:03 09/09/20 04:00 Temperature 36.4 C L 36.3 C L Pulse Rate 96 128 H 98 Respiratory Rate 16 20 Blood Pressure 112/66 102/65 Pulse Oximetry 95 100 09/09/20 04:55 09/09/20 07:30 09/09/20 07:44 Temperature 36.3 C L Pulse Rate 98 96 94 Respiratory Rate 16 Blood Pressure 130/29 L 107/61 Pulse Oximetry 09/09/20 08:00 09/09/20 08:15 09/09/20 08:30 Temperature 36.3 C L Pulse Rate 75 112 H 93 Respiratory Rate 16 Blood Pressure 116/52 L 96/57 L 110/34 L Pulse Oximetry 93
--- NOTE | 2020-09-09 10:18 | PM.PNNEP ---
Progress Note: A&P Assessment and Plan (1) End stage renal disease: Code(s): N18.6 - End stage renal disease Status: Chronic Assessment and Plan: Getting dialysis now. Volume status looks okay. Will slow the blood flow and reduce fluid off for the duration of the dialysis. He is not eating very well. (2) Frequent falls: Code(s): R29.6 - Repeated falls Status: Acute Assessment and Plan: etiology? - due to orthostatic hypotension? noted numerous falls as per Home Health PT/OT in progress Still very weak. (3) Person under investigation for COVID-19: Code(s): Z20.828 - Contact with and (suspected) exposure to other viral communicable diseases Status: Acute Assessment and Plan: Is positive. Supportive care (4) Atrial fibrillation: Code(s): I48.91 - Unspecified atrial fibrillation Status: Acute Assessment and Plan: as noted today Cardiology following not a candidate for anticoagulation (due to falls) Heart rate has been better, 90s or so. on amiodarone and metoprolol. (5) Essential hypertension: Code(s): I10 - Essential (primary) hypertension Status: Chronic Assessment and Plan: Blood pressure is doing well off meds. (6) Anemia: Code(s): D64.9 - Anemia, unspecified Status: Acute Assessment and Plan: in range for ESRD Epogen with HD Hemoglobin has plateaued in the 8s. (7) Diabetes: Code(s): E11.9 - Type 2 diabetes mellitus without complications Status: Chronic Assessment and Plan: follows with Endocrinology follow accuchecks on Lantus and SSI Subjective Date/time seen: 09/09/20 10:18 Interval history: Patient is comfortable lying in bed He is on dialysis and tolerating it well. He was seen at 9:45 a.m.. He had a brief episode (1-2 minutes) of chest pain. It was somewhat sharp. He pointed and a very small area about the size of a quarter at the left lower sternal border. This area is not tender. no cough. No shortness of breath Exam Narrative: Exam Narrative: General: WD/WN male in NAD Heart: IRRR, tachycardic, normal S1 and S2; no rub Lungs: decreased at bases. No chest tenderness. Abdomen: BS+ nontender and soft Extremities: no edema or cyanosis. Skin: No rash or subcu nodules Objective Data Vital Signs Vital Signs: Vital Signs - 24 hr 09/08/20 11:48 09/08/20 11:57 09/08/20 11:58 Temperature 36.3 C L Pulse Rate 86 86 86 Respiratory Rate 16 Blood Pressure 117/68 Pulse Oximetry 95 09/08/20 16:00 09/08/20 20:03 09/09/20 04:00 Temperature 36.4 C L 36.3 C L Pulse Rate 96 128 H 98 Respiratory Rate 16 20 Blood Pressure 112/66 102/65 Pulse Oximetry 95 100 09/09/20 04:55 09/09/20 07:30 09/09/20 07:44 Temperature 36.3 C L Pulse Rate 98 96 94 Respiratory Rate 16 Blood Pressure 130/29 L 107/61 Pulse Oximetry 09/09/20 08:00 09/09/20 08:15 09/09/20 08:30 Temperature 36.3 C L Pulse Rate 75 112 H 93 Respiratory Rate 16 Blood Pressure 116/52 L 96/57 L 110/34 L Pulse Oximetry 93 09/09/20 08:45 09/09/20 09:00 09/09/20 09:11 Temperature Pulse Rate 66 105 H 105 H Respiratory Rate Blood Pressure 102/47 L 94/58 L Pulse Oximetry 09/09/20 09:15 09/09/20 09:30 09/09/20 09:45 Temperature Pulse Rate 75 111 H 112 H Respiratory Rate Blood Pressure 116/52 L 94/50 L 121/48 L Pulse Oximetry 09/09/20 10:00 09/09/20 10:15 Temperature Pulse Rate 91 103 H Respiratory Rate Blood Pressure 101/44 L 95/52 L Pulse Oximetry Intake/Output Intake/Output: Intake & Output 09/06/20 09/07/20 09/08/20 09/09/20 23:59 23:59 23:59 23:59 Intake Total 1280 107 547 1906 Output Total 1000 0 Balance 1280 -960 058 2942 Meds/Results Medications: Active Medications Generic Name Dose Route Start Last Admin Trade Name Freq PRN Reason Stop Dose Admin
[2020-09-09] MEDS: EPOETIN ALFA-EPBX 20,000 UNITS/ML VIAL 20000 UNITS IV PUSH (10:22)
[2020-09-09 12:25] LABS: Glucose Point of Care 241 (65-105)
[2020-09-09] MEDS: INSULIN ASPART (*BKC) 100 UNITS/ML SUB-Q ×2 (12:26→17:37)
--- NOTE | 2020-09-09 13:33 | PCOTNOTE ---
OT treatment attempted. Patient declining participation in therapy this date due to agitation and feeling tired from dialysis. Will attempt at other time.
--- NOTE | 2020-09-09 13:50 | PC.NURSE ---
Patient complaint of chest discomfort during dialysis. NATASHA Hardy in patient room and notified . STAT EKG ordered and obtained. Result reported AFIB RVR. Called to [facility] around 0940. stated to contact cardiology. Called Shannan Mayfield, who happened to be walking to our unit, with EKG results. She stated she would look at the patient's medications and past EKG's. Patient has no other complaints.
--- NOTE | 2020-09-09 14:28 | PM.PNCARD ---
Progress Note: A&P Assessment and Plan (1) New onset atrial fibrillation: Code(s): I48.91 - Unspecified atrial fibrillation Status: Acute Assessment and Plan: He is not an anticoagulation candidate due to frequent falls. Heart rate is reasonably controlled on amiodarone 400 mg q12 H, and metoprolol 12.5 mg q.8 hours. Will continue Metoprolol tartrate 12.5 mg q 8 hours. Amiodarone 400 mg q 12 hours for 5 more days then 400 mg daily for 14 days then 200 mg daily Will need monitoring for amiodarone. Check TSH with next lab draw Tachycardic in dialysis today with some hypotension. (2) Elevated troponin: Code(s): R77.8 - Other specified abnormalities of plasma proteins Status: Acute Assessment and Plan: This is not related to ACS. (3) Frequent falls: Code(s): R29.6 - Repeated falls Status: Acute Assessment and Plan: Frequent falls. Possibly related to orthostatic hypotension? (4) End stage renal disease: Code(s): N18.6 - End stage renal disease Status: Chronic Assessment and Plan: On dialysis. Furosemide on hold since 09/02/[address] Moyer. (5) CAD (coronary artery disease): Qualifiers: Coronary Disease-Associated Artery/Lesion type: [place] artery [place] vs. transplanted heart: [place] heart Associated angina: without angina Qualified Code(s): I25.10 - Atherosclerotic heart disease of [place] coronary artery without angina pectoris Code(s): I25.10 - Atherosclerotic heart disease of [place] coronary artery without angina pectoris Status: Acute Assessment and Plan: Followed with [facility]. CABG 2010. Stable CAD. Continue aspirin, statin, beta-lucina Episode of brief chest discomfort today during dialysis. EKG personally reviewed with Dr Meeks at 1005 09/09/2020 with no acute changes suggestive of ischemia (6) Hypotension: Qualifiers: Hypotension type: unspecified hypotension type Qualified Code(s): I95.9 - Hypotension, unspecified Code(s): I95.9 - Hypotension, unspecified Status: Acute Assessment and Plan: Terazosin discontinued by Dr. Moyer. (7) COVID-19: Code(s): U07.1 - COVID-19 Status: Acute Assessment and Plan: Tx per hospitalists. Additional Plan OK to discharge from a cardiac standpoint. Plan discussed Dr. Meeks 1005 09/09/2020 Subjective Date/time seen: 09/09/20 14:28 Interval history: Follow-up for: Atrial fibrillation with rapid ventricular response, elevated troponin, frequent falls, end-stage renal disease on hemodialysis Date of service: 09/09/2020 Subjective: Wants to know when he is going home. Was told he was being discharged after dialysis today. Had brief episode of chest discomfort in dialysis. Pin point area left sternal border that he states he has had since his bypass surgery. Denies chest discomfort, shortness of breath or lightheadednss Review of Systems Constitutional: Constitutional: Reports weakness Eyes: Eyes: Denies blurry vision ENT: Reports Normal hearing present and Denies epistaxis Cardiovascular: Cardiovascular: Denies chest pain, Denies pedal edema and Denies dyspnea Respiratory: Respiratory: Denies dyspnea Gastrointestinal: Gastrointestinal: Denies abdominal pain Genitourinary: Genitourinary: Denies hematuria and Denies dysuria Musculoskeletal: Musculoskeletal: Reports back pain and Reports arthralgias Integumentary/Breasts: Skin/Breast: Denies dry skin Neurologic: Reports Normal hearing present, Reports confusion and Reports weakness Psychiatric: Psychiatric: Denies anxiety Endocrine: Endocrine: Reports fatigue and Denies flushing Hem
--- NOTE | 2020-09-09 15:30 | PM.DS ---
DS: Admitting Diagnosis Admitting Diagnosis Admitting Diagnosis: Fall DS: Discharge Diagnosis Discharge Diagnosis (1) Elevated troponin: Code(s): R77.8 - Other specified abnormalities of plasma proteins Status: Acute Assessment and Plan: Has a mildly elevated troponin. And he has been having multiple falls. The patient has no complaints of any chest pain any only has mildly elevated troponins. Will check another 1 in the a.m.. The patient's code status is DNR. He is on a daily aspirin. 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, patient denied any associated symptoms of chest pain palpitation or dizziness prior to fall, apparently patient tripped and landed on his knee, brought to the hospital, patient was found to have atrial fibrillation with RVR patient was seen by bit sander patient was given bolus of amiodarone started the patient on drip, cardiology does not recommend to anticoagulate the patient as he has a history falling and risk of bleeding, today patient HR in 130 but he is hypotensive seen by bit sander and unable to give amiodoran, patient is also found to elevated tropes patient is seen by Cardiology and suspect most likely secondary to chronic kidney disease and stress from fall, unlikely acute coronary syndrome, there is a concern the patient may have COVID-19 and being isolated and tested patient is positive, on 09/01 discussed with the patient he does not want to be DNR and will switch him over to full code, however on 09/02 patient was quite somnolent, tachycardia nursing staff spoke with the patient's son who is his POA patient was plaed on DNR, patient seen by bit sander with tachycardia patient was started on amiodarone drip however the rate was not controlled patient was given digoxin 0.125 mg IV. on 09/03 patient was switch to oral amiodoran by bit sander rate was controlled, however on 09/05 patient HR was trending up while on amiodoran 200mg BID patient was seen by bit sander and increased it to 400mg BID and started lopressor 2.5mg IV PRN for better HR controlled, today patient HR still above 100s, seen by bit sander and added metoprolol 12.5,mg q8, will continue to monitor, seen by Nephrology patient had dialysis on 09/04, 09/06 patient was doing well on room air and transferred out of IMU to medical floor, today patient states is feeling much better even sounds better, still on room air, and has no fever, seen by Nephrology will have dialysis, on 09/07 his heart rate was improving close to 100, today 09/08 his HR is less than 100, he has no fever and is on room air, patient wii be seen by bit sander, patient is encouraged to participate in physical therapy, patient will have dialysis tomorrow, if patient remains clinically stayed no fever not requiring any oxygen will do the discharge planning. (2) Frequent falls: Code(s): R29.6 - Repeated falls Status: Acute Assessment and Plan: We have PT and OT evaluation. supply coordinator for placement. The patient lives home alone he does have a person that comes and helps some but the patient has had multiple falls and his home and patient can no longer live in his home. Please see the home health notes that the patient has fallen several times. The patient has fallen at least 2 times the last 3 days. He just can no longer live at home. At times his blood sugar does drop low but it is typically elevated his last A1c was 10.1. 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
[2020-09-09 17:36] LABS: Glucose Point of Care 242 (65-105)
[2020-09-09] MEDS: ATORVASTATIN 20 MG TABLET PO (20:28)
[2020-09-09] MEDS: MELATONIN 5 MG TABLET PO (20:28)
[2020-09-09 20:39] LABS: Glucose Point of Care 188 (65-105)
--- NOTE | 2020-09-09 21:00 | PC.NURSE ---
Multiple telephone calls made by patient to nurses station and yelling out hello repeatedly. Time spent at bedside discussing plan of care and discharge in length.
--- NOTE | 2020-09-09 22:42 | PC.NURSE ---
Addendum entered by Xochitl Meng RN 09/09/20 22:45: Severo, at [place], [place], notified per telephone of discharge by [facility]. Telephone report given. Original Note: [facility] at [place], [place], notified per telephone of arrival anddischarge by [facility]. Report given
== END 2020-09-09 22:30 | DRG 291 ==
LOC: ANHED 11:33 → ANHIMU 18:43 → ANH3MEDSUR 09-08 10:29 → ANHIMU 09-15 11:57
PROVIDERS: Internal Medicine Nephrology; Nurse Practitioner; Admitting Provider Family Medicine; Emergency Provider General Practice; PCP Internal Medicine; Visit Provider Family Medicine
DX: I13.2 Hypertensive heart and chronic kidney disease with heart failure and with stage 5 chronic kidney disease, or end stage renal disease (principal); U07.1 COVID-19; N18.6 End stage renal disease; I50.33 Acute on chronic diastolic (congestive) heart failure; E11.22 Type 2 diabetes mellitus with diabetic chronic kidney disease; I25.10 Atherosclerotic heart disease of native coronary artery without angina pectoris; I95.9 Hypotension, unspecified; G47.33 Obstructive sleep apnea (adult) (pediatric); M19.90 Unspecified osteoarthritis, unspecified site; E11.42 Type 2 diabetes mellitus with diabetic polyneuropathy; E78.5 Hyperlipidemia, unspecified; M10.9 Gout, unspecified; K21.9 Gastro-esophageal reflux disease without esophagitis; K57.90 Diverticulosis of intestine, part unspecified, without perforation or abscess without bleeding; F41.8 Other specified anxiety disorders; R79.89 Other specified abnormal findings of blood chemistry; D63.1 Anemia in chronic kidney disease; Z66 Do not resuscitate; M17.11 Unilateral primary osteoarthritis, right knee; I48.91 Unspecified atrial fibrillation; R29.6 Repeated falls; W01.0XXA Fall on same level from slipping, tripping and stumbling without subsequent striking against object, initial encounter; Z86.73 Personal history of transient ischemic attack (TIA), and cerebral infarction without residual deficits; Z85.828 Personal history of other malignant neoplasm of skin; Z87.891 Personal history of nicotine dependence; Z98.42 Cataract extraction status, left eye; I25.2 Old myocardial infarction; Z98.41 Cataract extraction status, right eye; Z95.1 Presence of aortocoronary bypass graft; Z91.81 History of falling; Z99.2 Dependence on renal dialysis; Z79.82 Long term (current) use of aspirin
CPT/HCPCS: 36415; 70450; 71045; 73521; 73564; 80048; 80053; 80069; 80076; 82550; 83735; 84484; 85025; 85027; 85610; 85730; 87040; 87635; 92526; 92610; 93005; 93306; 96365; 96366; 96372; 96374; 96375; 96376; 97110; 97161; 97164; 97165; 97530; 99285; A9270; C9803; G0257; G0378; J0282; J1160; J1630; J1815; J1940; J2060; J7030; J7050; P9047; Q5106; U0003